=== PATIENT | male | born 1955 | race Caucasian/White ===

== ENCOUNTER 2016-06-25 19:34 | Emergency (ER) | payer OTHER ==
[~2016-06-25] VITALS: Ht 180.3 cm; Wt 149.7 kg
[2016-06-25 21:49] LABS: Basophils # (auto) 0.1 uL; Basophils % (auto) 0.7 % (0.0-2.0); DEFINITIVE VIEW TRANSMISSION; Eosinophils # (auto) 1.1 uL; Eosinophils % (auto) 8.1 % (0.0-7.0); Hematocrit 43.3 % (41.0-53.0); Hemoglobin 14.2 g/dL (13.5-17.5); Lymphocytes % (auto) 14.5 % (10.0-50.0); Mean Corpuscular Hemoglobin 30.5 pg (28.0-32.0); Mean Corpuscular Hgb Conc. 32.7 g/dL (32.0-36.0); Mean Corpuscular Volume 93.2 fL (80.0-100.0); Mean Platelet Volume 8.8 fL (7.4-10.4); Monocytes # (auto) 0.9 uL; Monocytes % (auto) 6.1 % (0.0-12.0); Neutrophils # (auto) 9.9 uL; Neutrophils % (auto) 70.6 % (37.0-80.0); Platelet Count (auto) 199 10^3/uL (140-450); Red Cell Distribution Width 12.8 % (11.6-16.0); White Blood Cell 14.1 10^3/uL (4.4-10.8)
[2016-06-25 22:04] VITALS: BP 119/70
[2016-06-25 22:13] LABS: Albumin 3.4 g/dL (3.4-5.0); BUN/Creatinine Ratio 13.5; Calcium 8.9 mg/dL (8.5-10.1); Potassium 3.8 mmol/L (3.5-5.1)
[2016-06-25 22:16] LABS: Bilirubin, Total 0.1 mg/dL (0.2-1.0); Total Protein 7.7 g/dL (6.4-8.2)
[2016-06-25 22:37] LABS: Urine Bilirubin Negative (Negative); Urine Color Yellow (Yellow); Urine Glucose Normal (Normal); Urine Hyaline Cast FEW /lpf (0 - 2); Urine Ketone Negative (Negative); Urine RBC 159 /hpf (0 - 3); Urine Urobilinogen Normal (Negative); Urine pH 5.5 (5.0-8.0)
[2016-06-25 22:39] LABS: Urine Blood 2+ /uL (Negative); Urine Nitrite POSITIVE (Negative)
[2016-06-26] MEDS ORDERED: cefTRIAXone 1GM/50ML D5W 50 ML IV ONE ×2 (01:00)
== END 2016-06-26 02:23 | disposition home or self-care (01) ==
LOC: EDBD 19:34 → ER 19:34
DX: N39.0 Urinary tract infection, site not specified (principal); R33.9 Retention of urine, unspecified; I10 Essential (primary) hypertension; Z98.890 Other specified postprocedural states; Z85.46 Personal history of malignant neoplasm of prostate
CPT/HCPCS: 36415; 80053; 81001; 85025; 96365; 96366; 99285; J0696

== ENCOUNTER 2018-06-09 21:58 | Emergency (ER) | payer OTHER ==
[~2018-06-09] VITALS: Ht 167.6 cm; Wt 145.1 kg
[2018-06-09 22:43] VITALS: BP 146/74
== END 2018-06-10 02:49 | disposition left against medical advice (07) ==
LOC: ER 22:02
DX: M54.2 Cervicalgia (principal); M54.5 Low back pain; M25.551 Pain in right hip; M25.512 Pain in left shoulder; M25.511 Pain in right shoulder; I10 Essential (primary) hypertension; V49.49XA Driver injured in collision with other motor vehicles in traffic accident, initial encounter; Y93.I9 Activity, other involving external motion; Y92.488 Other paved roadways as the place of occurrence of the external cause; Y99.8 Other external cause status
CPT/HCPCS: 70450; 72125; 72128; 72131; 73620; 73700; 82962

== ENCOUNTER 2020-02-17 02:06 | Emergency (ER) | payer MEDICARE, MEDICAID ==
[~2020-02-17] VITALS: Ht 170.2 cm; Wt 136.1 kg
[2020-02-17 02:28] VITALS: BP 144/47
== END 2020-02-17 05:41 | disposition left against medical advice (07) ==
LOC: EDBD 02:06 → ER 02:10
DX: M79.89 Other specified soft tissue disorders (principal); Z53.21 Procedure and treatment not carried out due to patient leaving prior to being seen by health care provider

== ENCOUNTER 2020-03-05 17:28 | Emergency (ER) | payer MEDICARE, MEDICAID ==
[~2020-03-05] VITALS: Ht 167.6 cm; Wt 149.7 kg
[2020-03-05 17:41] VITALS: BP 143/73
== END 2020-03-06 00:56 | disposition left against medical advice (07) ==
LOC: EDBD 17:28 → ER 17:28
DX: R53.1 Weakness (principal); Z53.21 Procedure and treatment not carried out due to patient leaving prior to being seen by health care provider

== ENCOUNTER 2020-06-16 06:21 | Inpatient (IN) | payer MEDICARE, MEDICAID ==
[~2020-06-16] VITALS: Ht 167.6 cm; Wt 142.0 kg
[2020-06-16] MEDS ORDERED: MORPHINE SULFATE 4 MG/ML SYR/VIAL IV ONE ×2 (07:45→18:45)
[2020-06-16] MEDS ORDERED: ONDANSETRON HCL 4 MG/2 ML VIAL IV ONE ×2 (07:45→18:45)
[2020-06-16 08:03] LABS: Basophils # (auto) 0 10 ^3/uL (0-0.2); Basophils % (auto) 0.3 % (0.0-2.0); Eosinophils # (auto) 0.2 10 ^3/uL (0-0.8); Eosinophils % (auto) 2.4 % (0.0-7.0); Hematocrit 36.2 % (41.0-53.0); Hemoglobin 12.4 g/dL (13.5-17.5); Lymphocytes # (auto) 1.4 10 ^3/uL (0.4-5.4); Lymphocytes % (auto) 20.8 % (10.0-50.0); Mean Corpuscular Hemoglobin 30.6 pg (28.0-32.0); Mean Corpuscular Hgb Conc. 34.2 g/dL (32.0-36.0); Mean Corpuscular Volume 89.5 fL (80.0-100.0); Monocytes # (auto) 0.7 10 ^3/uL (0-1.3); Monocytes % (auto) 10.6 % (0.0-12.0); Neutrophils # (auto) 4.4 10 ^3/uL (1.6-8.6); Neutrophils % (auto) 65.9 % (37.0-80.0); Red Blood Cells 4.04 10^6/uL (4.5-5.90); Red Cell Distribution Width 15.1 % (11.8-14.3); White Blood Cell 6.7 10^3/uL (4.4-10.8)
[2020-06-16 08:22] LABS: INR 1.07 (0.9-1.15)
[2020-06-16 08:37] LABS: Chloride 103 mmol/L (98-107); Potassium 4.1 mmol/L (3.5-5.1); Sodium 135 mmol/L (136-145)
[2020-06-16 08:47] LABS: Alanine Aminotransferase 30 U/L (16-61); Albumin 3.5 g/dL (3.4-5.0); Anion Gap 6 (5-15); Aspartate Aminotransferase 24 U/L (15-37); BUN/Creatinine Ratio 24.6; Bilirubin, Total 0.4 mg/dL (0.2-1.0); Blood Urea Nitrogen 28 mg/dL (7-18); Calcium 8.5 mg/dL (8.5-10.1); Carbon Dioxide 26 mmol/L (21-32); GFR African American 83 mL/min; GFR Non-African American 68 mL/min; Glucose 138 mg/dL (74-106); Total Protein 8.3 g/dL (6.4-8.2)
[2020-06-16 09:20] LABS: Alkaline Phosphatase 116 U/L (45-117)
[2020-06-16] MEDS ORDERED: LORazepam 2MG/ML-1ML VIAL ONE (10:24)
[2020-06-16] MEDS ORDERED: LORazepam 2MG/ML-1ML VIAL IV ONE (10:45)
[2020-06-16 12:45] LABS: Urine Bacteria FEW /hpf (None Seen); Urine Blood TRACE /uL (Negative); Urine Hyaline Cast FEW /lpf (0 - 2); Urine Mucus FEW (None Seen); Urine Specific Gravity 1.026 (1.001-1.035); Urine WBC 23 /hpf (0 - 3)
[2020-06-16 12:46] LABS: Alcohol, Urine < 3.0 mg/dL (0-10); Cannabinoid Screen, Urine NEGATIVE (NEGATIVE)
[2020-06-16 12:55] LABS: Amphetamine Screen, Urine NEGATIVE (NEGATIVE); Barbiturate Scree,Urine NEGATIVE (NEGATIVE); Benzodiazephine Screen, Urine NEGATIVE (NEGATIVE); Cocaine Screen, Urine NEGATIVE (NEGATIVE); Opiate Scree,Urine POSITIVE (NEGATIVE); Phencyclidine Screen, Urine NEGATIVE (NEGATIVE)
[2020-06-16] MEDS ORDERED: cefTRIAXone 1GM/50ML D5W 50 ML IV ONE (16:30)
[2020-06-16] MEDS ORDERED: MORPHINE SULFATE 4 MG/ML SYR/VIAL ONE (18:29)
[2020-06-16] MEDS ORDERED: ONDANSETRON HCL 4 MG/2 ML VIAL ONE (18:29)
[2020-06-16] MEDS ORDERED: DEXTROSE (50%) 50ML SYRG IV PRN (19:15)
[2020-06-16] MEDS ORDERED: NITROGLYCERIN 0.4 MG SL TAB SL PRN (19:15)
[2020-06-16] MEDS ORDERED: MORPHINE SULFATE INJECTION 2 MG/ML SYRG IV PRN (19:15)
[2020-06-16] MEDS ORDERED: ACETAMINOPHEN 500 MG TAB PO PRN (19:15)
[2020-06-16] MEDS: InsuLIN REG 1unit/0.01ml Soln (100units/ml) SC SCH (20:51)
[2020-06-16] MEDS: ACCU-CHEK COMFORT CURVE STRIP VI SCH (21:33)
[2020-06-16 22:15] VITALS: BP 148/84
[2020-06-16 22:33] VITALS: BP 148/84
[2020-06-16] MEDS: DOCUSATE SOD 100 MG CAP PO SCH (22:41)
[2020-06-16] MEDS: CLINDAMYCIN 300MG IV 50 ML IV SCH (22:41)
[2020-06-16] MEDS: MORPHINE SULFATE INJECTION 2 MG/ML SYRG IV PRN (22:55)
[2020-06-17] MEDS ORDERED: GABA300C10 PO (00:48)
[2020-06-17] MEDS ORDERED: FURO1TAB33 GT (00:48)
[2020-06-17] MEDS ORDERED: METF-370 PO (00:48)
[2020-06-17] MEDS: HYDROcodone-ACET 5/325MG TAB PO PRN (02:28)
[2020-06-17] MEDS: MORPHINE SULFATE INJECTION 2 MG/ML SYRG IV PRN ×4 (03:23→18:00)
[2020-06-17 05:00] VITALS: BP 151/81
[2020-06-17] MEDS: CLINDAMYCIN 300MG IV 50 ML IV SCH ×3 (06:04→23:00)
[2020-06-17 06:22] LABS: Basophils # (auto) 0.1 10 ^3/uL (0-0.2); Basophils % (auto) 1.1 % (0.0-2.0); Eosinophils # (auto) 0.2 10 ^3/uL (0-0.8); Eosinophils % (auto) 4.7 % (0.0-7.0); Hemoglobin 10.8 g/dL (13.5-17.5); Lymphocytes # (auto) 1.1 10 ^3/uL (0.4-5.4); Lymphocytes % (auto) 21.8 % (10.0-50.0); Mean Corpuscular Hemoglobin 30.2 pg (28.0-32.0); Mean Corpuscular Hgb Conc. 33.6 g/dL (32.0-36.0); Mean Corpuscular Volume 89.7 fL (80.0-100.0); Monocytes # (auto) 0.6 10 ^3/uL (0-1.3); Monocytes % (auto) 12.3 % (0.0-12.0); Neutrophils % (auto) 60.1 % (37.0-80.0); Red Blood Cells 3.57 10^6/uL (4.5-5.90); Red Cell Distribution Width 14.7 % (11.8-14.3); White Blood Cell 5.1 10^3/uL (4.4-10.8)
[2020-06-17] MEDS: InsuLIN REG 1unit/0.01ml Soln (100units/ml) SC SCH (06:26)
[2020-06-17] MEDS: ACCU-CHEK COMFORT CURVE STRIP VI SCH (06:27)
[2020-06-17 06:34] LABS: BUN/Creatinine Ratio 25.3; Calcium 8.1 mg/dL (8.5-10.1)
[2020-06-17 08:00] VITALS: BP 133/71
[2020-06-17] MEDS: DOCUSATE SOD 100 MG CAP PO SCH ×2 (08:43→22:00)
[2020-06-17] MEDS: ENOXAPARIN SOD 40 MG/0.4 ML SYRINGE SC SCH ×2 (08:44→08:51)
[2020-06-17] MEDS: FAMOTIDINE 20 MG TAB PO SCH (08:44)
[2020-06-17] MEDS: cefTRIAXone 1GM/50ML D5W 50 ML IV SCH (08:44)
[2020-06-17 16:00] VITALS: BP 164/95
[2020-06-17] MEDS: TAMSULOSIN HYDROCHLORIDE 0.4 MG CAP PO SCH (18:27)
[2020-06-17 22:00] VITALS: BP 150/79
[2020-06-18] VITALS: BP 150/79
[2020-06-18] MEDS: MORPHINE SULFATE INJECTION 2 MG/ML SYRG IV PRN ×5 (00:03→23:00)
[2020-06-18] MEDS: ONDANSETRON HCL 4 MG/2 ML VIAL IV PRN ×2 (00:03→13:29)
[2020-06-18] MEDS: TEMAZEPAM 15 MG CAP PO PRN (00:31)
[2020-06-18] MEDS: HYDROcodone-ACET 5/325MG TAB PO PRN ×2 (00:31→06:06)
[2020-06-18 05:00] VITALS: BP 154/81
[2020-06-18] MEDS: CLINDAMYCIN 300MG IV 50 ML IV SCH ×3 (06:06→22:00)
[2020-06-18 08:00] VITALS: BP 156/95
[2020-06-18] MEDS: cefTRIAXone 1GM/50ML D5W 50 ML IV SCH (09:00)
[2020-06-18] MEDS: FAMOTIDINE 20 MG TAB PO SCH (10:00)
[2020-06-18] MEDS: DOCUSATE SOD 100 MG CAP PO SCH ×2 (10:00→22:00)
[2020-06-18] MEDS: ENOXAPARIN SOD 40 MG/0.4 ML SYRINGE SC SCH (10:00)
[2020-06-18] MEDS ORDERED: LACTULOSE 20Gm/30ML SOLN PO ONE (10:30)
[2020-06-18 16:00] VITALS: BP 158/83
[2020-06-18] MEDS: TAMSULOSIN HYDROCHLORIDE 0.4 MG CAP PO SCH (18:00)
[2020-06-18 22:00] VITALS: BP 148/69
[2020-06-18 22:06] VITALS: BP_SYST 148; BP_SYST 158; BP_DIAS 69; BP_DIAS 83
[2020-06-19] VITALS: BP 148/69
[2020-06-19 00:02] VITALS: BP 158/83
[2020-06-19 01:03] VITALS: BP 148/69
[2020-06-19] MEDS: ONDANSETRON HCL 4 MG/2 ML VIAL IV PRN (01:30)
[2020-06-19] MEDS: HYDROcodone-ACET 5/325MG TAB PO PRN ×2 (02:55→21:08)
[2020-06-19 05:00] VITALS: BP 133/68
[2020-06-19] MEDS: CLINDAMYCIN 300MG IV 50 ML IV SCH ×3 (06:00→22:00)
[2020-06-19 08:00] VITALS: BP 146/76
[2020-06-19] MEDS: cefTRIAXone 1GM/50ML D5W 50 ML IV SCH (09:42)
[2020-06-19] MEDS: DOCUSATE SOD 100 MG CAP PO SCH ×2 (09:44→22:22)
[2020-06-19] MEDS: FAMOTIDINE 20 MG TAB PO SCH (09:45)
[2020-06-19] MEDS: ENOXAPARIN SOD 40 MG/0.4 ML SYRINGE SC SCH (09:45)
[2020-06-19 16:00] VITALS: BP 161/72
[2020-06-19] MEDS: TAMSULOSIN HYDROCHLORIDE 0.4 MG CAP PO SCH ×2 (17:16→17:45)
[2020-06-20] VITALS: BP 155/74
[2020-06-20] MEDS: CLINDAMYCIN 300MG IV 50 ML IV SCH (06:00)
[2020-06-20 08:00] VITALS: BP 157/80
[2020-06-20] MEDS ORDERED: levoFLOXacin 500 MG TAB PO SCH (10:00)
[2020-06-20] MEDS: ENOXAPARIN SOD 40 MG/0.4 ML SYRINGE SC SCH (10:00)
[2020-06-20] MEDS: HYDROcodone-ACET 5/325MG TAB PO PRN ×2 (10:31→22:48)
[2020-06-20] MEDS: FAMOTIDINE 20 MG TAB PO SCH (10:31)
[2020-06-20] MEDS: DOCUSATE SOD 100 MG CAP PO SCH ×2 (10:31→22:09)
[2020-06-20] MEDS: CLINDAMYCIN HCL 150 MG CAP PO SCH ×2 (14:18→22:08)
[2020-06-20 16:00] VITALS: BP 159/80
[2020-06-20] MEDS ORDERED: cloNIDine HCL 0.1 MG TAB PO PRN (16:15)
[2020-06-20] MEDS ORDERED: cloNIDine HCL 0.1 MG TAB PO ONE (16:15)
[2020-06-20] MEDS ORDERED: FUROSEMIDE 40 MG TAB PO ONE (16:15)
[2020-06-20] MEDS: TAMSULOSIN HYDROCHLORIDE 0.4 MG CAP PO SCH (18:00)
[2020-06-20 22:00] VITALS: BP 151/80
[2020-06-20] MEDS: TEMAZEPAM 15 MG CAP PO PRN (22:49)
[2020-06-21] VITALS: BP 151/80
[2020-06-21 05:05] VITALS: BP 135/70
[2020-06-21] MEDS: CLINDAMYCIN HCL 150 MG CAP PO SCH (06:08)
[2020-06-21 08:00] VITALS: BP 152/92
[2020-06-21] MEDS: FAMOTIDINE 20 MG TAB PO SCH (08:22)
[2020-06-21] MEDS: DOCUSATE SOD 100 MG CAP PO SCH (08:24)
[2020-06-21] MEDS: ENOXAPARIN SOD 40 MG/0.4 ML SYRINGE SC SCH (08:25)
[2020-06-21] MEDS ORDERED: FUROSEMIDE 40 MG TAB PO SCH (10:00)
== END 2020-06-21 10:05 | disposition left against medical advice (07) | DRG 920 ==
LOC: EDBD 06:21 → ER 06:21 → TELE 18:12 → TELE-CENTR 22:15
PROVIDERS: ADMIT Nurse Practitioner Acute Care; ATTEND Family Medicine
DX: T86.822 Skin graft (allograft) (autograft) infection (principal); L03.116 Cellulitis of left lower limb; N30.00 Acute cystitis without hematuria; Z68.43 Body mass index [BMI] 50.0-59.9, adult; L03.115 Cellulitis of right lower limb; F31.9 Bipolar disorder, unspecified; I10 Essential (primary) hypertension; E66.9 Obesity, unspecified; E78.5 Hyperlipidemia, unspecified; E11.51 Type 2 diabetes mellitus with diabetic peripheral angiopathy without gangrene; E11.42 Type 2 diabetes mellitus with diabetic polyneuropathy; Z53.29 Procedure and treatment not carried out because of patient's decision for other reasons; Z96.649 Presence of unspecified artificial hip joint; Z20.822 Contact with and (suspected) exposure to COVID-19; Z79.84 Long term (current) use of oral hypoglycemic drugs; Z85.51 Personal history of malignant neoplasm of bladder; Z91.14 Patient's other noncompliance with medication regimen; Z59.0 Homelessness
CPT/HCPCS: 36415; 71045; 80048; 80053; 80307; 81001; 82962; 83036; 83880; 84443; 84484; 85025; 85379; 85610; 85730; 87040; 87081; 87086; 87426; 93926; 93970; 96365; 96375; 96376; G0378; J0696; J1815; J2405; J3490

== ENCOUNTER 2020-08-18 13:19 | Emergency (ER) | payer OTHER, MEDICAID ==
[~2020-08-18] VITALS: Ht 167.6 cm; Wt 108.9 kg
[~2020-08-18 13:19] MED LIST: FURO1TAB33 GT; GABA300C10 PO; METF-370 PO
[2020-08-18 15:47] LABS: Basophils # (auto) 0 10 ^3/uL (0-0.2); Basophils % (auto) 0.6 % (0.0-2.0); Eosinophils # (auto) 0.1 10 ^3/uL (0-0.8); Eosinophils % (auto) 0.8 % (0.0-7.0); Hemoglobin 15.1 g/dL (13.5-17.5); Lymphocytes # (auto) 1.4 10 ^3/uL (0.4-5.4); Lymphocytes % (auto) 19.7 % (10.0-50.0); Mean Corpuscular Hemoglobin 29.9 pg (28.0-32.0); Mean Corpuscular Volume 85.4 fL (80.0-100.0); Monocytes # (auto) 0.8 10 ^3/uL (0-1.3); Neutrophils # (auto) 4.9 10 ^3/uL (1.6-8.6); Neutrophils % (auto) 67.9 % (37.0-80.0); Nucleated Red Blood Cells % 0.3 %; Platelet Count (auto) 190 10^3/uL (140-450); Red Blood Cells 5.04 10^6/uL (4.5-5.90); Red Cell Distribution Width 15.7 % (11.8-14.3); White Blood Cell 7.2 10^3/uL (4.4-10.8)
[2020-08-18 15:58] LABS: Albumin 3.9 g/dL (3.4-5.0); Calcium 9.2 mg/dL (8.5-10.1); Magnesium 2.2 mg/dL (1.6-2.6); Potassium 3.6 mmol/L (3.5-5.1)
[2020-08-18 16:03] LABS: BUN/Creatinine Ratio 23.4; Bilirubin, Total 0.6 mg/dL (0.2-1.0); Total Protein 8.7 g/dL (6.4-8.2)
[2020-08-18 16:46] LABS: INR 1.13 (0.9-1.15); Partial Thromboplastin Time 30.4 sec (23.0-31.2)
[2020-08-18] MEDS ORDERED: cefTRIAXone 1GM/50ML D5W 50 ML IV ONE (17:15)
[2020-08-18 19:59] LABS: Urine Bacteria NONE SEEN /hpf (None Seen); Urine Blood Negative /uL (Negative); Urine Specific Gravity 1.007 (1.001-1.035); Urine WBC 1 /hpf (0 - 3)
[2020-08-19 05:46] VITALS: BP 118/59
== END 2020-08-19 08:54 | disposition left against medical advice (07) ==
LOC: ER 13:19 → EDBD 13:19 → ER 08-19 08:54
DX: L03.114 Cellulitis of left upper limb (principal); R60.0 Localized edema; E11.9 Type 2 diabetes mellitus without complications; I10 Essential (primary) hypertension; E78.5 Hyperlipidemia, unspecified; Z79.899 Other long term (current) drug therapy; Z20.822 Contact with and (suspected) exposure to COVID-19
CPT/HCPCS: 36415; 71045; 73130; 80053; 81001; 82728; 83605; 83735; 83880; 84484; 85025; 85610; 85652; 85730; 86141; 87040; 87426; 93005; 93970; 96365; 99285; J0696

== ENCOUNTER 2020-08-19 15:46 | Emergency (ER) | payer OTHER, MEDICAID | END 2020-08-19 18:14 | disposition left against medical advice (07) | LOC: EDBD 15:46 → ER 15:46 | DX: Z48.01 Encounter for change or removal of surgical wound dressing (principal); Z53.21 Procedure and treatment not carried out due to patient leaving prior to being seen by health care provider ==

== ENCOUNTER 2022-11-18 23:55 | Inpatient (IN) | payer MEDICARE, MEDICAID ==
[~2022-11-18] VITALS: Ht 172.7 cm; Wt 141.3 kg
[~2022-11-18 23:55] MED LIST changes: +GABA-1250 PO; -GABA300C10 PO
[2022-11-19 00:45] LABS: Basophils # (auto) 0.1 10 ^3/uL (0-0.2); Eosinophils # (auto) 0.1 10 ^3/uL (0-0.8); Eosinophils % (auto) 2.2 % (0.0-7.0); Hematocrit 40.7 % (41.0-53.0); Hemoglobin 14.1 g/dL (13.5-17.5); Lymphocytes # (auto) 1.7 10 ^3/uL (0.4-5.4); Lymphocytes % (auto) 24.8 % (10.0-50.0); Mean Corpuscular Hemoglobin 32.8 pg (28.0-32.0); Mean Corpuscular Hgb Conc. 34.7 g/dL (32.0-36.0); Mean Corpuscular Volume 94.7 fL (80.0-100.0); Monocytes # (auto) 0.6 10 ^3/uL (0-1.3); Monocytes % (auto) 9.5 % (0.0-12.0); Neutrophils # (auto) 4.2 10 ^3/uL (1.6-8.6); Neutrophils % (auto) 62.5 % (37.0-80.0); Nucleated Red Blood Cells % 0.2 %; Red Cell Distribution Width 13.1 % (11.8-14.3); White Blood Cell 6.7 10^3/uL (4.4-10.8)
[2022-11-19 01:11] LABS: Calcium 8.3 mg/dL (8.5-10.1); Potassium 3.9 mmol/L (3.5-5.1)
[2022-11-19 01:13] LABS: BUN/Creatinine Ratio 21.4 (10.0-20.0)
[2022-11-19 01:20] LABS: INR 1.04 (0.9-1.15); Partial Thromboplastin Time 29.3 SEC (24.5-34.5)
[2022-11-19 01:29] LABS: Albumin 3.4 g/dL (3.4-5.0); Bilirubin, Total 0.3 mg/dL (0.2-1.0); Total Protein 7.3 g/dL (6.4-8.2)
[2022-11-19] MEDS ORDERED: ASPirin 325 MG TAB PO ONE (05:00)
[2022-11-19] MEDS ORDERED: LACTATED RINGER'S 1,000 ML IV ONE (05:00)
[2022-11-19] MEDS ORDERED: ACETAMINOPHEN 325 MG TAB PO PRN (05:30)
[2022-11-19] MEDS ORDERED: DEXTROSE (50%) 50ML SYRG IV PRN (05:30)
[2022-11-19] MEDS ORDERED: MORPHINE SULFATE INJ 2 MG/ml SYRG IV PRN (07:00)
[2022-11-19] MEDS ORDERED: NITROGLYCERIN 0.4 MG SL TAB SL PRN (07:00)
[2022-11-19] MEDS: ACCU-CHEK COMFORT CURVE STRIP VI SCH ×3 (07:22→17:09)
[2022-11-19] MEDS: InsuLIN REG 1unit/0.01ml Soln (100units/ml) SC SCH ×3 (07:24→17:16)
[2022-11-19] MEDS: SODIUM CHLORIDE 0.9% 1,000 ML IV SCH (07:28)
[2022-11-19 08:23] LABS: Urine Bacteria NONE SEEN /hpf (None Seen); Urine Blood 2+ /uL (Negative); Urine Hyaline Cast FEW /lpf (0 - 2); Urine Mucus FEW (None Seen); Urine Specific Gravity 1.025 (1.001-1.035); Urine WBC 1 /hpf (0 - 3)
[2022-11-19 09:15] LABS: Basophils # (auto) 0 10 ^3/uL (0-0.2); Eosinophils # (auto) 0.2 10 ^3/uL (0-0.8); Eosinophils % (auto) 3.3 % (0.0-7.0); Hematocrit 40.8 % (41.0-53.0); Lymphocytes # (auto) 1.2 10 ^3/uL (0.4-5.4); Lymphocytes % (auto) 23.5 % (10.0-50.0); Mean Corpuscular Hemoglobin 32.6 pg (28.0-32.0); Mean Corpuscular Hgb Conc. 34.4 g/dL (32.0-36.0); Mean Corpuscular Volume 94.6 fL (80.0-100.0); Monocytes # (auto) 0.5 10 ^3/uL (0-1.3); Monocytes % (auto) 9.3 % (0.0-12.0); Neutrophils # (auto) 3.1 10 ^3/uL (1.6-8.6); Neutrophils % (auto) 62.9 % (37.0-80.0); Nucleated Red Blood Cells % 0.2 %; Red Blood Cells 4.31 10^6/uL (4.5-5.90); Red Cell Distribution Width 13.1 % (11.8-14.3)
[2022-11-19] MEDS: ASPirin 81 mg TAB PO SCH (10:02)
[2022-11-19 10:10] LABS: Albumin 3.3 g/dL (3.4-5.0); Calcium 8.4 mg/dL (8.5-10.1)
[2022-11-19 10:15] LABS: BUN/Creatinine Ratio 19.2 (10.0-20.0); Bilirubin, Total 0.4 mg/dL (0.2-1.0); Total Protein 7.6 g/dL (6.4-8.2)
[2022-11-19] MEDS ORDERED: InsuLIN REG 1unit/0.01ml Soln (100units/ml) SC SCH (22:00)
[2022-11-20] MEDS: ATORVASTATIN 20 MG TAB PO SCH ×2 (00:22→21:44)
[2022-11-20] MEDS: ACCU-CHEK COMFORT CURVE STRIP VI SCH ×5 (00:28→18:06)
[2022-11-20] MEDS: SODIUM CHLORIDE 0.9% 1,000 ML IV SCH ×2 (00:39→01:39)
[2022-11-20] MEDS: InsuLIN REG 1unit/0.01ml Soln (100units/ml) SC SCH ×4 (06:36→18:10)
[2022-11-20 06:49] LABS: Basophils # (auto) 0.1 10 ^3/uL (0-0.2); Basophils % (auto) 1.1 % (0.0-2.0); Eosinophils # (auto) 0.2 10 ^3/uL (0-0.8); Eosinophils % (auto) 3.1 % (0.0-7.0); Hematocrit 38.6 % (41.0-53.0); Hemoglobin 13.5 g/dL (13.5-17.5); Lymphocytes # (auto) 1.4 10 ^3/uL (0.4-5.4); Lymphocytes % (auto) 22.7 % (10.0-50.0); Mean Corpuscular Hemoglobin 33.3 pg (28.0-32.0); Mean Corpuscular Volume 95.1 fL (80.0-100.0); Monocytes # (auto) 0.6 10 ^3/uL (0-1.3); Neutrophils % (auto) 63.1 % (37.0-80.0); Nucleated Red Blood Cells % 0.1 %; Red Blood Cells 4.06 10^6/uL (4.5-5.90); Red Cell Distribution Width 13.3 % (11.8-14.3); White Blood Cell 6.3 10^3/uL (4.4-10.8)
[2022-11-20 07:35] LABS: Albumin 3.2 g/dL (3.4-5.0); Calcium 8.3 mg/dL (8.5-10.1); Potassium 4.1 mmol/L (3.5-5.1)
[2022-11-20 07:38] LABS: BUN/Creatinine Ratio 20.2 (10.0-20.0); Bilirubin, Total 0.5 mg/dL (0.2-1.0); Total Protein 6.6 g/dL (6.4-8.2)
[2022-11-20] MEDS: ASPirin 81 mg TAB PO SCH (10:16)
[2022-11-20] MEDS ORDERED: FUROSEMIDE 40 MG/4 ML VIAL IV ONE (14:00)
[2022-11-20] MEDS ORDERED: NIFE1TAB30 PO (14:26)
[2022-11-20] MEDS ORDERED: LOSA50TA46 PO (14:26)
[2022-11-20 15:05] LABS: Cholesterol 156 mg/dL (< 200)
[2022-11-20 15:08] LABS: HDL Cholesterol 37 mg/dL (40-59); LDL Cholesterol 98 mg/dL (< 100); Triglycerides 121 mg/dL (< 150)
[2022-11-20] MEDS ORDERED: DEXTROSE (50%) 50ML SYRG IV PRN (17:45)
[2022-11-20] MEDS: DOCUSATE SOD 100 MG CAP PO PRN (21:44)
[2022-11-20] MEDS: ONDANSETRON HCL 4 MG/2 ML VIAL IV PRN (21:44)
[2022-11-20] MEDS: MORPHINE SULFATE INJ 2 MG/ml SYRG IV PRN (21:45)
[2022-11-21] MEDS: HYDROcodone-ACET 5/325MG TAB PO PRN ×2 (00:02→13:36)
[2022-11-21] MEDS: ACCU-CHEK COMFORT CURVE STRIP VI SCH ×3 (00:02→12:12)
[2022-11-21] MEDS: InsuLIN REG 1unit/0.01ml Soln (100units/ml) SC SCH ×4 (00:15→22:20)
[2022-11-21 05:53] VITALS: BP 171/88
[2022-11-21] MEDS: hydrALAZINE HCL 20 MG/ML VL IV PRN ×2 (05:54→12:35)
[2022-11-21] MEDS ORDERED: ATOR40TA52 PO (06:56)
[2022-11-21] MEDS ORDERED: ADENOSINE IV STA (10:24)
[2022-11-21] MEDS ORDERED: GIVE UN DILUTED IV STA (10:24)
[2022-11-21 10:29] VITALS: BP 167/55
[2022-11-21] MEDS: ASPirin 81 mg TAB PO SCH (12:10)
[2022-11-21] MEDS: FUROSEMIDE 40 MG/4 ML VIAL IV SCH (12:10)
[2022-11-21] MEDS: POTASSIUM CHL 20 Meq TABLET PO SCH (12:11)
[2022-11-21 13:00] VITALS: BP 158/60
[2022-11-21 13:46] LABS: Calcium 9.3 mg/dL (8.5-10.1); Potassium 3.8 mmol/L (3.5-5.1)
[2022-11-21 13:53] LABS: BUN/Creatinine Ratio 20.2 (10.0-20.0)
[2022-11-21] MEDS: MORPHINE SULFATE INJ 2 MG/ml SYRG IV PRN ×2 (14:43→22:25)
[2022-11-21] MEDS ORDERED: LISINOPRIL 10 MG TAB PO ONE (15:30)
[2022-11-21] MEDS ORDERED: CEPHALEXIN 250 MG CAP PO ONE (15:45)
[2022-11-21 17:00] VITALS: BP 149/82
[2022-11-21 20:00] VITALS: BP 166/80
[2022-11-21 22:00] VITALS: BP 166/80
[2022-11-21] MEDS: DOCUSATE SOD 100 MG CAP PO PRN (22:22)
[2022-11-21] MEDS: ATORVASTATIN 20 MG TAB PO SCH (22:22)
[2022-11-21] MEDS: CEPHALEXIN 250 MG CAP PO SCH (22:23)
[2022-11-21] MEDS: ONDANSETRON HCL 4 MG/2 ML VIAL IV PRN (22:23)
[2022-11-22] MEDS: ACCU-CHEK COMFORT CURVE STRIP VI SCH ×5 (00:26→17:11)
[2022-11-22] MEDS ORDERED: TEMAZEPAM 15 MG CAP PO ONE (01:00)
[2022-11-22] MEDS: InsuLIN REG 1unit/0.01ml Soln (100units/ml) SC SCH ×4 (04:49→18:19)
[2022-11-22 05:00] VITALS: BP 142/61
[2022-11-22] MEDS: SPIRONOLACTONE 25 MG TAB PO SCH ×3 (06:00→17:10)
[2022-11-22] MEDS: CEPHALEXIN 250 MG CAP PO SCH ×3 (06:40→21:30)
[2022-11-22 09:00] VITALS: BP 132/48
[2022-11-22] MEDS: ASPirin 81 mg TAB PO SCH (09:42)
[2022-11-22] MEDS: POTASSIUM CHL 20 Meq TABLET PO SCH (09:42)
[2022-11-22] MEDS: FUROSEMIDE 40 MG/4 ML VIAL IV SCH (09:43)
[2022-11-22] MEDS: LISINOPRIL 10 MG TAB PO SCH (09:43)
[2022-11-22 10:43] LABS: BUN/Creatinine Ratio 20.2 (10.0-20.0); Calcium 9.1 mg/dL (8.5-10.1); Potassium 3.9 mmol/L (3.5-5.1)
[2022-11-22] MEDS ORDERED: FURO1TAB31 PO (11:20)
[2022-11-22] MEDS ORDERED: LISI10TA34 PO (11:20)
[2022-11-22] MEDS ORDERED: CEPH250C PO (11:20)
[2022-11-22] MEDS ORDERED: POTA-211 PO (11:20)
[2022-11-22] MEDS ORDERED: DOCU-265 PO (11:20)
[2022-11-22] MEDS ORDERED: SPIR25TA PO (11:20)
[2022-11-22] MEDS ORDERED: ATOR20TA50 PO (11:20)
[2022-11-22] MEDS ORDERED: ASPI-325 PO (11:20)
[2022-11-22] MEDS ORDERED: METF-371 PO (11:20)
[2022-11-22 12:55] VITALS: BP 132/98
[2022-11-22 13:00] VITALS: BP 136/49
[2022-11-22 17:00] VITALS: BP 147/56
[2022-11-22] MEDS: ATORVASTATIN 20 MG TAB PO SCH (21:29)
[2022-11-23] VITALS (7 sets, daily range): BP systolic 117–159; BP diastolic 63–76
[2022-11-23] MEDS: ACCU-CHEK COMFORT CURVE STRIP VI SCH ×5 (00:06→23:20)
[2022-11-23] MEDS: InsuLIN REG 1unit/0.01ml Soln (100units/ml) SC SCH ×5 (00:09→23:22)
[2022-11-23] MEDS: DOCUSATE SOD 100 MG CAP PO PRN (03:38)
[2022-11-23] MEDS: SPIRONOLACTONE 25 MG TAB PO SCH ×2 (05:46→17:39)
[2022-11-23] MEDS: CEPHALEXIN 250 MG CAP PO SCH ×3 (05:46→21:23)
[2022-11-23] MEDS: POTASSIUM CHL 20 Meq TABLET PO SCH (09:58)
[2022-11-23] MEDS: ASPirin 81 mg TAB PO SCH (09:58)
[2022-11-23] MEDS: FUROSEMIDE 40 MG/4 ML VIAL IV SCH (10:13)
[2022-11-23] MEDS: LISINOPRIL 10 MG TAB PO SCH (10:25)
[2022-11-23] MEDS: ATORVASTATIN 20 MG TAB PO SCH (21:23)
[2022-11-23] MEDS: hydrALAZINE HCL 20 MG/ML VL IV PRN (22:01)
[2022-11-24 04:53] VITALS: BP 143/66
[2022-11-24] MEDS: CEPHALEXIN 250 MG CAP PO SCH ×3 (05:15→21:54)
[2022-11-24] MEDS: SPIRONOLACTONE 25 MG TAB PO SCH ×2 (05:15→19:05)
[2022-11-24] MEDS: ACCU-CHEK COMFORT CURVE STRIP VI SCH ×4 (05:15→23:40)
[2022-11-24] MEDS: InsuLIN REG 1unit/0.01ml Soln (100units/ml) SC SCH ×4 (05:23→23:46)
[2022-11-24 08:28] VITALS: BP 145/59
[2022-11-24] MEDS: FUROSEMIDE 40 MG/4 ML VIAL IV SCH (09:55)
[2022-11-24] MEDS: ASPirin 81 mg TAB PO SCH (09:56)
[2022-11-24] MEDS: POTASSIUM CHL 20 Meq TABLET PO SCH (09:56)
[2022-11-24] MEDS: LISINOPRIL 10 MG TAB PO SCH (09:58)
[2022-11-24 12:44] VITALS: BP 146/69
[2022-11-24 14:10] VITALS: BP 146/69
[2022-11-24 16:52] VITALS: BP 121/61
[2022-11-24] MEDS: ATORVASTATIN 20 MG TAB PO SCH (21:54)
[2022-11-24] MEDS: DOCUSATE SOD 100 MG CAP PO PRN (23:42)
[2022-11-25 05:00] VITALS: BP 144/65
[2022-11-25] MEDS: ACCU-CHEK COMFORT CURVE STRIP VI SCH ×3 (05:41→19:05)
[2022-11-25] MEDS: CEPHALEXIN 250 MG CAP PO SCH ×3 (05:41→21:43)
[2022-11-25] MEDS: SPIRONOLACTONE 25 MG TAB PO SCH ×2 (05:41→19:05)
[2022-11-25] MEDS: InsuLIN REG 1unit/0.01ml Soln (100units/ml) SC SCH ×4 (05:50→23:57)
[2022-11-25 08:40] VITALS: BP 110/75
[2022-11-25] MEDS: ASPirin 81 mg TAB PO SCH (09:53)
[2022-11-25] MEDS: POTASSIUM CHL 20 Meq TABLET PO SCH (09:53)
[2022-11-25] MEDS: LISINOPRIL 10 MG TAB PO SCH (09:54)
[2022-11-25] MEDS: FUROSEMIDE 40 MG/4 ML VIAL IV SCH (10:00)
[2022-11-25 16:53] VITALS: BP 119/74
[2022-11-25] MEDS: ATORVASTATIN 20 MG TAB PO SCH (21:43)
[2022-11-25 22:00] VITALS: BP 126/78
[2022-11-26 05:00] VITALS: BP 127/63
[2022-11-26] MEDS: SPIRONOLACTONE 25 MG TAB PO SCH (06:51)
[2022-11-26] MEDS: ACCU-CHEK COMFORT CURVE STRIP VI SCH ×2 (06:51)
[2022-11-26] MEDS: InsuLIN REG 1unit/0.01ml Soln (100units/ml) SC SCH (06:56)
[2022-11-26] MEDS: CEPHALEXIN 250 MG CAP PO SCH (06:57)
[2022-11-26] MEDS: LISINOPRIL 10 MG TAB PO SCH (10:44)
[2022-11-26] MEDS: ASPirin 81 mg TAB PO SCH (10:44)
[2022-11-26] MEDS: POTASSIUM CHL 20 Meq TABLET PO SCH (10:45)
[2022-11-26] MEDS: FUROSEMIDE 40 MG/4 ML VIAL IV SCH (10:45)
[2022-11-26 11:13] VITALS: BP 123/90
[2022-11-26] MEDS ORDERED: FUROSEMIDE 20 MG TAB PO ONE (11:30)
== END 2022-11-26 12:30 | disposition left against medical advice (07) | DRG 291 ==
LOC: ER 23:55 → EDBD 23:55 → TELE 11-19 06:52 → TELE-EAST 11-21 05:27 → EAST 11-23 12:21
PROVIDERS: ADMIT Internal Medicine; ATTEND Family Medicine
DX: I11.0 Hypertensive heart disease with heart failure (principal); I50.33 Acute on chronic diastolic (congestive) heart failure; L03.116 Cellulitis of left lower limb; Z68.42 Body mass index [BMI] 45.0-49.9, adult; N17.9 Acute kidney failure, unspecified; L03.115 Cellulitis of right lower limb; I16.0 Hypertensive urgency; E11.65 Type 2 diabetes mellitus with hyperglycemia; E66.01 Morbid (severe) obesity due to excess calories; Z53.21 Procedure and treatment not carried out due to patient leaving prior to being seen by health care provider; I34.0 Nonrheumatic mitral (valve) insufficiency; Z20.822 Contact with and (suspected) exposure to COVID-19; E78.5 Hyperlipidemia, unspecified; Z96.643 Presence of artificial hip joint, bilateral; I87.8 Other specified disorders of veins; I87.2 Venous insufficiency (chronic) (peripheral); Z91.199 Patient's noncompliance with other medical treatment and regimen due to unspecified reason; Z99.3 Dependence on wheelchair; Z85.51 Personal history of malignant neoplasm of bladder; Z79.82 Long term (current) use of aspirin
CPT/HCPCS: 36415; 71045; 78452; 80048; 80053; 80061; 81001; 82962; 83036; 83735; 83880; 84443; 84484; 85025; 85379; 85610; 85730; 87426; 93005; 93017; 93306; 93925; 93970; 97110; 97116; 97163; 97530; G0378; J0153; J1815; J2405

== ENCOUNTER 2022-11-26 22:31 | Emergency (ER) | payer MEDICARE, MEDICAID ==
[~2022-11-26] VITALS: Ht 177.8 cm; Wt 127.2 kg
[~2022-11-26 22:31] MED LIST changes: +ASPI-325 PO; +ATOR20TA50 PO; +ATOR40TA52 PO; +CEPH250C PO; +DOCU-265 PO; +FURO1TAB31 PO; +LISI10TA34 PO; +LOSA50TA46 PO; +METF-371 PO; +NIFE1TAB30 PO; +POTA-211 PO; +SPIR25TA PO
[2022-11-26 23:01] VITALS: BP 155/84; RESP 18; O2SAT 96
[2022-11-26 23:12] LABS: Basophils # (auto) 0.1 10 ^3/uL (0-0.2); Eosinophils # (auto) 0.2 10 ^3/uL (0-0.8); Eosinophils % (auto) 1.7 % (0.0-7.0); Hematocrit 47.8 % (41.0-53.0); Hemoglobin 16.5 g/dL (13.5-17.5); Lymphocytes # (auto) 3.1 10 ^3/uL (0.4-5.4); Mean Corpuscular Hemoglobin 32.7 pg (28.0-32.0); Mean Corpuscular Hgb Conc. 34.6 g/dL (32.0-36.0); Mean Corpuscular Volume 94.6 fL (80.0-100.0); Monocytes # (auto) 1.3 10 ^3/uL (0-1.3); Monocytes % (auto) 12.3 % (0.0-12.0); Neutrophils # (auto) 6.2 10 ^3/uL (1.6-8.6); Nucleated Red Blood Cells % 0.1 %; Red Blood Cells 5.05 10^6/uL (4.5-5.90); White Blood Cell 10.9 10^3/uL (4.4-10.8)
[2022-11-26 23:24] LABS: Albumin 4.1 g/dL (3.4-5.0); Calcium 9.1 mg/dL (8.5-10.1); Magnesium 2.3 mg/dL (1.6-2.6); Potassium 4.7 mmol/L (3.5-5.1)
[2022-11-26 23:26] LABS: INR 1.09 (0.9-1.15); Partial Thromboplastin Time 28.1 SEC (24.5-34.5)
[2022-11-26 23:27] LABS: BUN/Creatinine Ratio 25.9 (10.0-20.0); Bilirubin, Total 0.4 mg/dL (0.2-1.0); Total Protein 8.4 g/dL (6.4-8.2)
[2022-11-27 01:47] VITALS: PULSE 91
== END 2022-11-27 05:30 | disposition left against medical advice (07) ==
LOC: EDBD 22:31 → ER 22:31
DX: R07.89 Other chest pain (principal); Z53.21 Procedure and treatment not carried out due to patient leaving prior to being seen by health care provider
CPT/HCPCS: 36415; 71045; 80053; 83735; 83880; 84484; 85025; 85610; 85730; 93005

== ENCOUNTER 2022-12-01 04:15 | Inpatient (IN) | payer MEDICARE, MEDICAID ==
[~2022-12-01] VITALS: Ht 167.6 cm; Wt 144.4 kg
[2022-12-01 04:57] LABS: Basophils # (auto) 0.1 10 ^3/uL (0-0.2); Basophils % (auto) 0.9 % (0.0-2.0); Eosinophils # (auto) 0.2 10 ^3/uL (0-0.8); Eosinophils % (auto) 2.8 % (0.0-7.0); Hemoglobin 13.9 g/dL (13.5-17.5); Lymphocytes # (auto) 1.7 10 ^3/uL (0.4-5.4); Lymphocytes % (auto) 29.9 % (10.0-50.0); Mean Corpuscular Hemoglobin 32.8 pg (28.0-32.0); Mean Corpuscular Hgb Conc. 34.7 g/dL (32.0-36.0); Mean Corpuscular Volume 94.4 fL (80.0-100.0); Monocytes # (auto) 0.6 10 ^3/uL (0-1.3); Monocytes % (auto) 10.5 % (0.0-12.0); Neutrophils # (auto) 3.2 10 ^3/uL (1.6-8.6); Neutrophils % (auto) 55.9 % (37.0-80.0); Nucleated Red Blood Cells % 0.1 %; Red Blood Cells 4.24 10^6/uL (4.5-5.90); Red Cell Distribution Width 12.6 % (11.8-14.3); White Blood Cell 5.7 10^3/uL (4.4-10.8)
[2022-12-01 05:11] LABS: INR 1.09 (0.9-1.15); Partial Thromboplastin Time 30.3 SEC (24.5-34.5)
[2022-12-01 05:12] LABS: Albumin 3.5 g/dL (3.4-5.0); Calcium 8.3 mg/dL (8.5-10.1); Magnesium 2.1 mg/dL (1.6-2.6)
[2022-12-01 05:15] LABS: BUN/Creatinine Ratio 15.9 (10.0-20.0); Bilirubin, Total 0.3 mg/dL (0.2-1.0); Total Protein 7.3 g/dL (6.4-8.2)
[2022-12-01] MEDS: PIPERACILLIN-TAZOB 3.375GM 100 ML IV ONE ×4 (08:00→12:50)
[2022-12-01] MEDS ORDERED: DOCUSATE SOD 100 MG CAP PO PRN (12:15)
[2022-12-01] MEDS ORDERED: ONDANSETRON HCL 4 MG/2 ML VIAL IV PRN (12:15)
[2022-12-01] MEDS ORDERED: MORPHINE SULFATE INJ 2 MG/ml SYRG IV PRN (12:15)
[2022-12-01 17:02] VITALS: PULSE 71; RESP 14; O2SAT 94
[2022-12-01] MEDS: PIPERACILLIN-TAZOB 3.375GM 100 ML IV SCH (17:38)
[2022-12-01 20:10] VITALS: PULSE 83; RESP 20; O2SAT 96
[2022-12-01] MEDS: HYDROcodone-ACET 5/325MG TAB PO PRN (22:21)
[2022-12-01] MEDS: ATORVASTATIN 20 MG TAB PO SCH (22:21)
[2022-12-02] VITALS (9 sets, daily range): BP systolic 127–159; BP diastolic 57–85; PULSE 71–85; RESP 16–19; TEMP 97.3–98.6; O2SAT 94–98
[2022-12-02] MEDS: HYDROcodone-ACET 5/325MG TAB PO PRN (03:11)
[2022-12-02] MEDS: PIPERACILLIN-TAZOB 3.375GM 100 ML IV SCH ×4 (05:56→18:41)
[2022-12-02] MEDS: FUROSEMIDE 40 MG TAB PO SCH (06:03)
[2022-12-02 06:34] LABS: Basophils # (auto) 0.1 10 ^3/uL (0-0.2); Basophils % (auto) 0.9 % (0.0-2.0); Eosinophils # (auto) 0.2 10 ^3/uL (0-0.8); Eosinophils % (auto) 3.2 % (0.0-7.0); Hematocrit 40.8 % (41.0-53.0); Hemoglobin 14.5 g/dL (13.5-17.5); Lymphocytes # (auto) 1.4 10 ^3/uL (0.4-5.4); Lymphocytes % (auto) 22.5 % (10.0-50.0); Mean Corpuscular Hemoglobin 32.8 pg (28.0-32.0); Mean Corpuscular Hgb Conc. 35.5 g/dL (32.0-36.0); Mean Corpuscular Volume 92.5 fL (80.0-100.0); Monocytes # (auto) 0.7 10 ^3/uL (0-1.3); Monocytes % (auto) 11.7 % (0.0-12.0); Neutrophils # (auto) 3.8 10 ^3/uL (1.6-8.6); Neutrophils % (auto) 61.7 % (37.0-80.0); Nucleated Red Blood Cells % 0.2 %; Red Blood Cells 4.41 10^6/uL (4.5-5.90); Red Cell Distribution Width 12.5 % (11.8-14.3); White Blood Cell 6.1 10^3/uL (4.4-10.8)
[2022-12-02 06:56] LABS: Potassium 4.1 mmol/L (3.5-5.1)
[2022-12-02 07:02] LABS: Albumin 3.6 g/dL (3.4-5.0); BUN/Creatinine Ratio 19.1 (10.0-20.0); Bilirubin, Total 0.4 mg/dL (0.2-1.0); Calcium 8.7 mg/dL (8.5-10.1); Total Protein 8.1 g/dL (6.4-8.2)
[2022-12-02] MEDS ORDERED: POTASSIUM CHL 10 Meq TABLET PO SCH (10:00)
[2022-12-02] MEDS ORDERED: LISINOPRIL 10 MG TAB PO SCH (10:00)
[2022-12-02] MEDS ORDERED: ASPirin-EC 81 mg tab PO SCH (10:00)
[2022-12-02] MEDS ORDERED: SPIRONOLACTONE 25 MG TAB PO SCH (10:00)
[2022-12-02] MEDS ORDERED: LOSARTAN POTASSIUM 50 MG TAB PO SCH (10:00)
[2022-12-02] MEDS ORDERED: LISINOPRIL 20 MG TAB PO ONE (12:30)
[2022-12-02] MEDS: ATORVASTATIN 20 MG TAB PO SCH (21:18)
[2022-12-03] MEDS: PIPERACILLIN-TAZOB 3.375GM 100 ML IV SCH ×2 (00:23→06:08)
[2022-12-03 05:00] VITALS: BP 130/71; PULSE 61; RESP 18; TEMP 98; O2SAT 96
[2022-12-03] MEDS: FUROSEMIDE 40 MG TAB PO SCH (06:09)
[2022-12-03] MEDS ORDERED: LISINOPRIL 20 MG TAB PO SCH (10:00)
== END 2022-12-03 11:00 | disposition left against medical advice (07) | DRG 603 ==
LOC: EDBD 04:15 → ER 04:15 → TELE 12:20 → TELE-CENTR 23:59
PROVIDERS: ADMIT Nurse Practitioner Family; ATTEND Family Medicine
DX: L03.115 Cellulitis of right lower limb (principal); Z68.43 Body mass index [BMI] 50.0-59.9, adult; L03.116 Cellulitis of left lower limb; I11.0 Hypertensive heart disease with heart failure; D69.6 Thrombocytopenia, unspecified; E78.5 Hyperlipidemia, unspecified; E66.01 Morbid (severe) obesity due to excess calories; Z53.21 Procedure and treatment not carried out due to patient leaving prior to being seen by health care provider; I25.2 Old myocardial infarction; Z85.51 Personal history of malignant neoplasm of bladder; Z99.3 Dependence on wheelchair; E11.9 Type 2 diabetes mellitus without complications; I50.9 Heart failure, unspecified
CPT/HCPCS: 36415; 71045; 80053; 83605; 83735; 83880; 84484; 85025; 85610; 85730; 87040; 87081; 93005; 96365; G0378; J2543

== ENCOUNTER 2023-12-13 22:10 | Emergency (ER) | payer MEDICAID ==
[~2023-12-13] VITALS: Ht 167.6 cm; Wt 160.0 kg
[~2023-12-13 22:10] MED LIST changes: +LOSA-534 PO; -LOSA50TA46 PO
[2023-12-13 22:35] LABS: Basophils # (auto) 0 10 ^3/uL (0-0.2); Basophils % (auto) 0.8 % (0.0-2.0); Eosinophils # (auto) 0.1 10 ^3/uL (0-0.8); Eosinophils % (auto) 2.3 % (0.0-7.0); Hematocrit 41.9 % (41.0-53.0); Hemoglobin 14.6 g/dL (13.5-17.5); Lymphocytes # (auto) 1.3 10 ^3/uL (0.4-5.4); Lymphocytes % (auto) 23.7 % (10.0-50.0); Mean Corpuscular Hemoglobin 31.7 pg (28.0-32.0); Mean Corpuscular Hgb Conc. 34.8 g/dL (32.0-36.0); Mean Corpuscular Volume 91.2 fL (80.0-100.0); Monocytes # (auto) 0.6 10 ^3/uL (0-1.3); Monocytes % (auto) 10.8 % (0.0-12.0); Neutrophils # (auto) 3.4 10 ^3/uL (1.6-8.6); Neutrophils % (auto) 62.4 % (37.0-80.0); Nucleated Red Blood Cells % 0.2 %; Red Cell Distribution Width 13.7 % (11.8-14.3); White Blood Cell 5.5 10^3/uL (4.4-10.8)
[2023-12-13 22:49] LABS: INR 1.08 (0.9-1.15); Partial Thromboplastin Time 26.6 SEC (24.5-34.5); Prothrombin Time 11.4 sec (9.3-11.8)
[2023-12-13 23:08] LABS: Alanine Aminotransferase 35 U/L (7-40); Albumin 4.1 g/dL (3.2-4.8); Alkaline Phosphatase 127 U/L (46-116); Anion Gap 11 (5-15); Aspartate Aminotransferase 25 U/L (13-40); BUN/Creatinine Ratio 14.1 (10.0-20.0); Blood Urea Nitrogen 14 mg/dL (9-23); Calcium 9.6 mg/dL (8.7-10.4); Carbon Dioxide 25 mmol/L (20-30); Chloride 98 mmol/L (98-107); Magnesium 1.5 mg/dL (1.6-2.6); Sodium 134 mmol/L (136-145)
[2023-12-13 23:09] LABS: Bilirubin, Total 0.5 mg/dL (0.2-1.0); Total Protein 7.2 g/dL (5.7-8.2)
[2023-12-13 23:42] LABS: Glucose 448 mg/dL (74-106)
[2023-12-14 01:23] VITALS: TEMP 98.5
[2023-12-14 04:20] VITALS: BP 168/100
[2023-12-14 04:21] VITALS: PULSE 88; RESP 17; O2SAT 98
[2023-12-14] MEDS: InsuLIN REG 1unit/0.01ml Soln (100units/ml) IV ONE (05:08)
[2023-12-14] MEDS: SODIUM CHLORIDE 0.9% 1,000 ML IV ONE (05:08)
[2023-12-14] MEDS: InsuLIN REG 1unit/0.01ml Soln (100units/ml) SC ONE (05:25)
== END 2023-12-14 06:57 | disposition left against medical advice (07) ==
LOC: EDBD 22:10 → ER 22:10 → EDUNIT# 22:10 → ER 12-14 06:57
DX: R07.89 Other chest pain (principal); E11.65 Type 2 diabetes mellitus with hyperglycemia; R53.1 Weakness; I10 Essential (primary) hypertension; E78.5 Hyperlipidemia, unspecified; Z85.9 Personal history of malignant neoplasm, unspecified; Z98.890 Other specified postprocedural states; Z79.899 Other long term (current) drug therapy
CPT/HCPCS: 36415; 71045; 80053; 82962; 83735; 83880; 84484; 85025; 85610; 85730; 93005; 99285; J1815

== ENCOUNTER 2023-12-15 02:40 | Emergency (ER) | payer MEDICAID ==
[~2023-12-15] VITALS: Ht 182.9 cm; Wt 170.0 kg
[2023-12-15 02:58] VITALS: BP 170/99; PULSE 88; RESP 18; O2SAT 98
== END 2023-12-16 07:55 | disposition left against medical advice (07) ==
LOC: ER 02:40 → EDBD 02:40 → ER 12-16 07:55
DX: E11.9 Type 2 diabetes mellitus without complications (principal); Z53.21 Procedure and treatment not carried out due to patient leaving prior to being seen by health care provider

== ENCOUNTER 2024-01-20 07:12 | Emergency (ER) | payer MEDICARE, MEDICAID ==
[~2024-01-20] VITALS: Ht 167.6 cm; Wt 146.0 kg
[2024-01-20 07:12] VITALS: BP 142/80; PULSE 94; RESP 16; O2SAT 95
== END 2024-01-20 07:29 | disposition left against medical advice (07) ==
LOC: EDSEX 07:12 → ER 07:12 → EDUNIT# 07:12 → EDBD 07:12 → ER 07:29
DX: R07.9 Chest pain, unspecified (principal); Z53.21 Procedure and treatment not carried out due to patient leaving prior to being seen by health care provider

== ENCOUNTER 2024-05-17 22:24 | Emergency (ER) | payer MEDICARE, MEDICAID ==
[~2024-05-17] VITALS: Ht 167.6 cm; Wt 155.0 kg
[2024-05-17 23:08] LABS: Basophils # (auto) 0.1 10 ^3/uL (0-0.2); Basophils % (auto) 0.7 % (0.0-2.0); Eosinophils # (auto) 0.1 10 ^3/uL (0-0.8); Eosinophils % (auto) 1.8 % (0.0-7.0); Hematocrit 46.5 % (41.0-53.0); Hemoglobin 15.6 g/dL (13.5-17.5); Lymphocytes # (auto) 0.7 10 ^3/uL (0.4-5.4); Mean Corpuscular Hemoglobin 30.2 pg (28.0-32.0); Mean Corpuscular Hgb Conc. 33.5 g/dL (32.0-36.0); Mean Corpuscular Volume 90.3 fL (80.0-100.0); Monocytes # (auto) 0.4 10 ^3/uL (0-1.3); Monocytes % (auto) 5.6 % (0.0-12.0); Neutrophils # (auto) 6.7 10 ^3/uL (1.6-8.6); Neutrophils % (auto) 82.9 % (37.0-80.0); Nucleated Red Blood Cells % 0.2 %; Platelet Count (auto) 139 10^3/uL (140-450); Red Blood Cells 5.15 10^6/uL (4.5-5.90); Red Cell Distribution Width 14.5 % (11.8-14.3)
[2024-05-17 23:11] LABS: Urine Bacteria None Seen /hpf (None Seen)
[2024-05-17 23:19] LABS: Urine Blood 2+ /uL (Negative); Urine Clarity Clear (Clear); Urine Color Light-Yellow (Yellow); Urine Protein, UAD 2+ (Negative); Urine Specific Gravity 1.025 (1.001-1.035); Urine Squamous Epithelial Cell FEW /hpf (<5); Urine Urobilinogen Normal (Negative); Urine WBC 2 /hpf (0 - 3); Urine pH 6.5 (5.0-9.0)
[2024-05-17 23:26] LABS: Alanine Aminotransferase 34 U/L (7-40); Albumin 4.5 g/dL (3.2-4.8); Alkaline Phosphatase 128 U/L (46-116); Anion Gap 6 (5-15); Aspartate Aminotransferase 26 U/L (13-40); BUN/Creatinine Ratio 16.3 (10.0-20.0); Bilirubin, Total 0.4 mg/dL (0.2-1.0); Blood Urea Nitrogen 20 mg/dL (9-23); Carbon Dioxide 28 mmol/L (20-31); Chloride 98 mmol/L (98-107); Glucose 329 mg/dL (74-106); Potassium 4.1 mmol/L (3.5-5.1); Sodium 132 mmol/L (136-145); Total Protein 8.3 g/dL (5.7-8.2)
[2024-05-18 00:06] LABS: Lipase 55 U/L (12-53)
--- NOTE | 2024-05-18 01:15 | ED.PDOC ---
HPI Comments This patient is a severely morbidly obese 69-year-old male who arrives to the ED today via EMS due to complaints of chest pain and general weakness concerns. Patient was at a bus stop when the chest pain event happened. Patient has had chest pain events in the past and additionally, it is currently handling bilateral lower extremity wounds. Patient states he was recently at [facility] and discharged without any definitive diagnosis or follow up. Patient wa s hypertensive on arrival. Chief Complaint: Chest Pain Time Seen by MD: 22:27 Primary Care Provider: SANDRA Reviewed Notes: Nurses Notes, Solar Thermal Technician Notes Allergies: Coded Allergies: NO KNOWN ALLERGIES (Unverified , 06/25/16) Home Meds Active Scripts Potassium Chloride (Klor-Con 10) 10 Meq Tab, 10 MEQ PO DAILY for 30 Days, #30 TAB 3 Refills Prov:GOVIND CHRISTIANSON MD 11/22/22 Spironolactone (Aldactone) 25 Mg Tab, 25 MG PO DAILY for 30 Days, #30 TAB 3 Refills Prov:GOVIND CHRISTIANSON MD 11/22/22 Metformin Hydrochloride (Metformin Hcl) 850 Mg Tab, 850 MG PO BID for 30 Days, #60 TAB 3 Refills Prov:GOVIND CHRISTIANSON MD 11/22/22 Aspirin (Aspirin Low Dose) 81 Mg Tab, 81 MG PO DAILY for 30 Days, #30 TAB 3 Refills Prov:GOVIND CHRISTIANSON MD 11/22/22 Furosemide (Lasix) 40 Mg Tab, 40 MG PO QAM for 30 Days, #30 TAB 3 Refills Prov:GOVIND CHRISTIANSON MD 11/22/22 Lisinopril (Lisinopril) 10 Mg Tab, 20 MG PO DAILY for 30 Days, #60 TAB 3 Refills Prov:GOVIND CHRISTIANSON MD 11/22/22 Docusate Sodium (Docusate Sodium) 100 Mg Cap, 100 MG PO BIDPRN PRN for 30 Days, #40 CAP Prov:GOVIND CHRISTIANSON MD 11/22/22 Cephalexin (KEFLEX CAPSULE) 250 Mg Cp, 500 MG PO TID for 7 Days, #21 CAP Prov:GOVIND CHRISTIANSON MD 11/22/22 Atorvastatin Calcium (ATORVASTATIN CALCIUM) 20 Mg Tab, 20 MG PO HS for 30 Days, #30 TAB 2 Refills Prov:GOVIND CHRISTIANSON MD 11/22/22 Reported Medications Atorvastatin Calcium (ATORVASTATIN CALCIUM) 40 Mg Tab, 1 TAB PO 11/21/22 Nifedipine (Nifedipine Er) 60 Mg Tab, 60 MG PO DAILY 11/20/22 Losartan Potassium (Losartan Potassium) 50 Mg Tab, 1 TAB PO DAILY 11/20/22 Gabapentin (Gabapentin) Unknown Strength Cap, PO, CAP 06/17/20 Metformin Hydrochloride (Metformin Hcl) Unknown Strength Tab, PO, TAB 06/17/20 Furosemide (Lasix) Unknown Strength Tb, GT, TAB 06/17/20 Information Source: Patient, Emergency Med Personnel Mode of Arrival: EMS Severity: Moderate Timing: Hours Duration: Since onset Prehospital treatment: 12 Lead EKG Location: Substernal Radiation: No Radiation, Back Quality: Sharp, Squeezing Onset: At Rest Cardiac Risk Factors: Diabetes PE Risk Factors: None History of: Similar pain in past Past Medical History PAST MEDICAL HISTORY: Cancer, DM, High Lipids, HTN Surgical History: PTCA Family History Family History: Unobtainable Social History Smoker: Non-Smoker Alcohol: Denies ETOH Use Drugs: Denies Drug Use Lives In: Home Constitutional: reports: malaise, weakness; denies: chills, diaphoresis, fatigue, fever, sweats, others EENTM: denies: blurred vision, double vision, ear bleeding, ear discharge, ear drainage, ear pain, ear ringing, eye pain, eye redness, hearing loss, mouth pain, mouth swelling, nasal discharge, nose bleeding, nose congestion, nose pain, photophobia, tearing, throat pain, throat swelling, voice changes, others Respiratory: denies: cough, hemoptysis, orthopnea, SOB at rest, shortness of breath, SOB with excertion, stridor, wheezing, others Cardiovascular: reports: chest pain; denies: dizzy spells, diaphoresis, Dyspnea on exertion, edema, irregular heart beat, left arm pain, lightheadedness, palpitations, PND, syncope, others Gastrointestinal: denies: abdomen distended, abdominal pain, blood streaked bowels, constipated, diarrhea, dysphagia, difficulty swallowing, hematemesis, melena, nausea, poor appetite, poor fluid intake, rectal bleeding, rectal pain, vomiting, others Genitourinary: denies: burning, dysuria, flank pain, frequency, hematuria, incontinence, penile discharge, penile sore, pain, testicle pain, testicle swelling, urgency, others Neurological: denies: dizziness, fainting, headache, left sided numbness, left sided weakness, numbness, paresthesia, pre-existing deficit, right sided numbness, right sided weakness, seizure, speech problems, tingling, tremors, weakness, others Musculoskeletal: denies: back pain, gout, joint pain, joint swelling, muscle pain, muscle stiffness, neck pain, others Integumetry: denies: bruises, change in color, change in hair/nails, dryness, laceration, lesions, lumps, rash, wounds, others Allergic/Immunocompromised: denies: Difficulty Healing, Frequent Infections, Hives, Itching, others Hematologic/Lymphatic: denies: anemia, blood clots, easy bleeding, easy bruising, swollen glands, others Endocrine: denies: excessive hunger, excessive sweating, excessive thirst, excessive urination, flushing, intolerance to cold, intolerance to heat, unexplained weight gain, unexplained weight loss, others Psychiatric: denies: anxiety, bipolar disorder, depression, hopeless, panic disorder, schizophrenia, sleepless, suicidal, others Physical Exam General Appearance: Moderate Distress (Moderate distress due to chest pain concerns. Patient appears to be in poor overall health.), Normal HEENT: Normal ENT Inspection, Pharynx Normal, TMs Normal Neck: Full Range of Motion, Non-Tender, Normal, Normal Inspection Respiratory: Chest Non-Tender, Lungs Clear, No Accessory Muscle Use, No Respiratory Distress, Normal Breath Sounds, Other (Unremarkable auscultation bilateral lung dillard.) Cardiovascular: No Edema, No JVD, No Murmur, No Gallop, Normal Peripheral Pulses, Regular Rate/Rhythm, Other (Unremarkable cardiac evaluation.) Breast Exam: Deferred Gastrointestinal: No Organomegaly, Non Tender, No Pulsatile Mass, Normal Bowel Sounds, Soft Genitalia: Deferred Pelvic: Deferred Rectal: Deferred Extremities: Other (Lower extremities were wrapped in gauze due to bilateral lower extremity wounds from venous stasis.) Neurologic: Alert, No Sensory Deficits Cerebellar Function: Normal Reflexes: Normal Skin: Dry, Normal Color, Warm Lymphatic: No Adenopathy Was a procedure done? Was a procedure done?: No CP Differential Dx Differential Diagnosis: A-fib, A-Flutter, Angina, Anxiety / Panic Attack, Atrial Dysrhythmia, AV Block 1st Degree, [place] Differential Diagnosis: CHF, HTN Essential Differential Diagnosis: Angina X-Ray, Labs, Meds, VS Vital Signs Date Time Temp Pulse Resp B/P (MAP) Pulse Ox O2 Delivery O2 Flow Rate FiO2 05/17/24 23:34 95 05/17/24 22:27 102 05/17/24 22:25 97.8 100 20 185/89 (121) 97 Lab Test 05/17/24 23:00 05/17/24 22:55 Range/Units Urine Color Light-yellow Yellow Urine Clarity Clear Clear Urine pH 6.5 5.0-9.0 Urine Specific [place] 1.025 1.001-1.035 Urine Protein 2+ H Negative Urine Ketones Trace Negative Urine Blood 2+ H Negative /uL Urine Nitrite Negative Negative Urine Bilirubin Negative Negative Urine Urobilinogen Normal Negative mg/dL Urine Leukocyte Esterase Negative Negative /uL Urine RBC 50 0 - 3 /hpf Urine WBC 2 0 - 3 /hpf Urine Squamous Epithelial Cells Few <5 /hpf Urine Bacteria None seen None Seen /hpf Urine Glucose 4+ H Normal mg/dL White Blood Count 8.0 4.4-10.8 10^3/uL Red Blood Count 5.15 4.5-5.90 10^6/uL Hemoglobin 15.6 13.5-17.5 g/dL Hematocrit 46.5 41.0-53.0 % Mean Corpuscular Volume 90.3 80.0-100.0 fL Mean Corpuscular Hemoglobin 30.2 28.0-32.0 pg Mean Corpuscular Hemoglobin Concent 33.5 32.0-36.0 g/dL Red Cell Distribution Width 14.5 H 11.8-14.3 % Platelet Count 139 L 140-450 10^3/uL Mean Platelet Volume 8.9 6.9-10.8 fL Neutrophils (%) (Auto) 82.9 H 37.0-80.0 % Lymphocytes (%) (Auto) 9.0 L 10.0-50.0 % Monocytes (%) (Auto) 5.6 0.0-12.0 % Eosinophils (%) (Auto) 1.8 0.0-7.0 % Basophils (%) (Auto) 0.7 0.0-2.0 % Neutrophils # (Auto) 6.7 1.6-8.6 10 ^3/uL Lymphocytes # (Auto) 0.7 0.4-5.4 10 ^3/uL Monocytes # (Auto) 0.4 0-1.3 10 ^3/uL Eosinophils # (Auto) 0.1 0-0.8 10 ^3/uL Basophils # (Auto) 0.1 0-0.2 10 ^3/uL Nucleated Red Blood Cells 0.2 % Sodium Level 132 L 136-145 mmol/L Potassium Level 4.1 3.5-5.1 mmol/L Chloride Level 98 98-107 mmol/L Carbon Dioxide Level 28 20-31 mmol/L Anion Gap 6 5-15 Blood Urea Nitrogen 20 9-23 mg/dL Creatinine 1.23 0.700-1.30 mg/dL Glomerular Filtration Rate Calc 63 >90 mL/min BUN/Creatinine Ratio 16.3 10.0-20.0 Serum Glucose 329 H 74-106 mg/dL Lactic Acid Level 1.7 0.4-2.0 mmol/L Calcium Level 10.0 8.7-10.4 mg/dL Total Bilirubin 0.4 0.2-1.0 mg/dL Aspartate Amino Transferase (AST) 26 13-40 U/L Alanine Aminotransferase (ALT) 34 7-40 U/L Alkaline Phosphatase 128 H 46-116 U/L Troponin I High Sensitivity 7 </=54 ng/L B-Type Natriuretic Peptide 34.85 0-100 pg/mL Total Protein 8.3 H 5.7-8.2 g/dL Albumin 4.5 3.2-4.8 g/dL Lipase 55 H 12-53 U/L X-Ray, Labs, Meds, VS Comment All studies performed the ED were evaluated by me personally. Serum laboratories revealed a hyperglycemic state of near 400. Patient displayed elevated lipase and had a large deposition of red blood cells in his urine. EKG revealed a sinus or ectopic atrial tachycardia with a rate of 102. Ventricular premature complexes were appreciated as well as a prolonged SC interval and right bundle-branch block. SC interval of 243 and QT interval of 400. Patient will be admitted for a cardiac consultation tomorrow as well as management of his hyperglycemic state and a wound care evaluation. Time of 1ST Reevaluation: 01:14 Reevaluation 1ST: Improved Consultation: PCP, Cardiology Patient Education/Counseling: Diagnosis, Treatment Family Education/Counseling: Diagnosis, Treatment Departure 1 Departure Time of Disposition: 01:15 Impression: Primary Impression: ACS (acute coronary syndrome) Additional Impressions: Hyperglycemia due to diabetes mellitus Hematuria Disposition: ADMITTED INPATIENT Condition: Fair Discharged With: Self Critical Care Note Critical Care Time?: No Stability Stability form required: No Heart Score Heart Score: Heart Score Response (Comments) Value History Slightly Suspicious 0 EKG Repolarization Disturb 1 Age >65 2 Risk Factors 1 or 2 risk factors 1 Troponin Normal limit 0 Total 4 CANDACE BAE PAC May 18, 2024 01:15
[2024-05-18] MEDS: cloNIDine HCL 0.1 MG TAB PO ONE (02:14)
[2024-05-18] MEDS: INSULIN LISPRO (HUMAN) 100 UNITS/ML ML SC ONE (02:16)
[2024-05-18] MEDS: ASPirin-EC 325mg tab PO ONE (02:37)
[2024-05-18] MEDS: SODIUM CHLORIDE 0.9% 1,000 ML IV ONE (02:50)
[2024-05-18 04:36] VITALS: BP 172/82; PULSE 89; RESP 20; TEMP 98.8; O2SAT 98
--- NOTE | 2024-05-19 14:02 | ECG ---
[facility] Test Date: 2024-05-17 Test Time: 22:27:26 Pat Name: JUAQUIN ANTUNEZ Department: er Room: Gender: M Icing Coater: : 1955 Requested By: CANDACE BAE Order Number: [id number] Reading MD: Deepak Coulter Measurements Intervals [employer] Rate: 102 P: 212 UT: 243 QRS: 9 QRSD: 151 T: 50 QT: 400 QTc: 522 Interpretive Statements Sinus or ectopic atrial tachycardia Ventricular premature complex Prolonged UT interval Right bundle branch block Electronically Signed On 05-20-2024 18:17:06 PST by Deepak Coulter Please click the below link to view image of tracing.
== END 2024-05-18 11:39 | disposition left against medical advice (07) ==
LOC: EDBD 22:24 → ER 22:24
DX: I24.9 Acute ischemic heart disease, unspecified (principal); E11.65 Type 2 diabetes mellitus with hyperglycemia; R31.9 Hematuria, unspecified; I10 Essential (primary) hypertension; E78.5 Hyperlipidemia, unspecified; Z79.82 Long term (current) use of aspirin; Z79.84 Long term (current) use of oral hypoglycemic drugs; Z79.899 Other long term (current) drug therapy
CPT/HCPCS: 36415; 80053; 81001; 82962; 83605; 83690; 83880; 84484; 85025; 93005

== ENCOUNTER 2024-05-18 16:47 | Emergency (ER) | payer MEDICARE, MEDICAID ==
[~2024-05-18] VITALS: Ht 167.6 cm; Wt 155.0 kg
[2024-05-18 16:52] VITALS: BP 124/103; RESP 25; O2SAT 95
[2024-05-18 17:23] VITALS: PULSE 80
--- NOTE | 2024-05-18 17:23 | ED.PDOC ---
History of Present Illness HPI Comments 69-year-old male who comes with chief complaint of chest pain. The patient is brought in by ambulance accompanied by armed security officer. The patient states that he was here earlier with chest pain and with natasha be admitted to the hospital. We did go ahead and review the chart and it seems that the patient barbara hwang have been admitted but became somewhat belligerent and then decided to leave. The patient was actually seen at [facility] a couple days ago and was transported by paramedics there. At that time, the patient's chest pain was addressed and he was discharge. The patient was given a prescription that was sent to [facility] which he did not potato picker at the time. Today, the patient stated that he ate and then he was headed to [employer] [employer] to go potato picker his prescriptions. The patient was being transported by van and when the van mixer crane operator was trying to unload him, he became very belligerent and started taking her things and throwing it out of the van. The patient was very uncooperative and so the band mixer crane operator had to call the police to come and address and situation. At that time the patient then complained of chest pain and salt the paramedics were also call. With the paramedics arrived, they transfer the patient to our facility. When the officer arrived, the patient also was extremely belligerent and uncooperative. Upon arrival, the patient's Accu-Chek was 278. The patient stated that his pain was a 9/10. He does have a power of spud sorter on the phone who has also been giving us the patient's medical history. While trying to take the history, the patient has been yelling and screaming and uncooperative. Chief Complaint: Mcfp Check Time Seen by : 16:57 Primary Care Provider: UNKNOWN Reviewed Notes: Nurses Notes, Software Sales Consultant Notes, Medications, Allergies (No allergies to medications) Allergies: Coded Allergies: NO KNOWN ALLERGIES (Unverified , 06/25/16) Home Meds Active Scripts Potassium Chloride (Klor-Con 10) 10 Meq Tab, 10 MEQ PO DAILY for 30 Days, #30 TAB 3 Refills Prov:GOVIND CHRISTIANSON MD 11/22/22 Spironolactone (Aldactone) 25 Mg Tab, 25 MG PO DAILY for 30 Days, #30 TAB 3 Refills Prov:GOVIND CHRISTIANSON MD 11/22/22 Metformin Hydrochloride (Metformin Hcl) 850 Mg Tab, 850 MG PO BID for 30 Days, #60 TAB 3 Refills Prov:GOVIND CHRISTIANSON MD 11/22/22 Aspirin (Aspirin Low Dose) 81 Mg Tab, 81 MG PO DAILY for 30 Days, #30 TAB 3 Refills Prov:GOVIND CHRISTIANSON MD 11/22/22 Furosemide (Lasix) 40 Mg Tab, 40 MG PO QAM for 30 Days, #30 TAB 3 Refills Prov:GOVIND CHRISTIANSON MD 11/22/22 Lisinopril (Lisinopril) 10 Mg Tab, 20 MG PO DAILY for 30 Days, #60 TAB 3 Refills Prov:GOVIND CHRISTIANSON MD 11/22/22 Docusate Sodium (Docusate Sodium) 100 Mg Cap, 100 MG PO BIDPRN PRN for 30 Days, #40 CAP Prov:GOVIND CHRISTIANSON MD 11/22/22 Cephalexin (KEFLEX CAPSULE) 250 Mg Cp, 500 MG PO TID for 7 Days, #21 CAP Prov:GOVIND CHRISTIANSON MD 11/22/22 Atorvastatin Calcium (ATORVASTATIN CALCIUM) 20 Mg Tab, 20 MG PO HS for 30 Days, #30 TAB 2 Refills Prov:GOVIND CHRISTIANSON MD 11/22/22 Reported Medications Atorvastatin Calcium (ATORVASTATIN CALCIUM) 40 Mg Tab, 1 TAB PO 11/21/22 Nifedipine (Nifedipine Er) 60 Mg Tab, 60 MG PO DAILY 11/20/22 Losartan Potassium (Losartan Potassium) 50 Mg Tab, 1 TAB PO DAILY 11/20/22 Gabapentin (Gabapentin) Unknown Strength Cap, PO, CAP 06/17/20 Metformin Hydrochloride (Metformin Hcl) Unknown Strength Tab, PO, TAB 06/17/20 Furosemide (Lasix) Unknown Strength Tb, GT, TAB 06/17/20 Information Source: Patient, Law Enforcement, Emergency Med Personnel Mode of Arrival: EMS Severity: Mild Timing: Days Duration: Intermittent Prehospital treatment: 12 Lead EKG, Fraud Representative Associated signs and symptoms No associated shortness a breath but the patient is complaining of chest pain. No nausea or vomiting. Past Medical History PAST MEDICAL HISTORY: Cancer (Bladder cancer), DM, High Lipids, HTN Surgical History: PTCA, Tonsillectomy Surgical History (Other): Bladder surgery, penile surgery, hip surgeries Family History Family History: Unobtainable Social History Smoker: Non-Smoker Alcohol: Denies ETOH Use Drugs: Denies Drug Use Lives In: Home Constitutional: denies: chills, diaphoresis, fatigue, fever, malaise, sweats, weakness, others EENTM: denies: blurred vision, double vision, ear bleeding, ear discharge, ear drainage, ear pain, ear ringing, eye pain, eye redness, hearing loss, mouth pain, mouth swelling, nasal discharge, nose bleeding, nose congestion, nose pain, photophobia, tearing, throat pain, throat swelling, voice changes, others Respiratory: denies: cough, hemoptysis, orthopnea, SOB at rest, shortness of breath, SOB with excertion, stridor, wheezing, others Cardiovascular: reports: chest pain; denies: dizzy spells, diaphoresis, Dyspnea on exertion, edema, irregular heart beat, left arm pain, lightheadedness, palpitations, PND, syncope, others Gastrointestinal: denies: abdomen distended, abdominal pain, blood streaked bowels, constipated, diarrhea, dysphagia, difficulty swallowing, hematemesis, melena, nausea, poor appetite, poor fluid intake, rectal bleeding, rectal pain, vomiting, others Genitourinary: denies: burning, dysuria, flank pain, frequency, hematuria, incontinence, penile discharge, penile sore, pain, testicle pain, testicle swelling, urgency, others Neurological: denies: dizziness, fainting, headache, left sided numbness, left sided weakness, numbness, paresthesia, pre-existing deficit, right sided numbness, right sided weakness, seizure, speech problems, tingling, tremors, weakness, others Musculoskeletal: denies: back pain, gout, joint pain, joint swelling, muscle pain, muscle stiffness, neck pain, others Integumetry: denies: bruises, change in color, change in hair/nails, dryness, laceration, lesions, lumps, rash, wounds, others Allergic/Immunocompromised: denies: Difficulty Healing, Frequent Infections, Hives, Itching, others Hematologic/Lymphatic: denies: anemia, blood clots, easy bleeding, easy bruising, swollen glands, others Endocrine: denies: excessive hunger, excessive sweating, excessive thirst, excessive urination, flushing, intolerance to cold, intolerance to heat, unexplained weight gain, unexplained weight loss, others Psychiatric: denies: anxiety, bipolar disorder, depression, hopeless, panic disorder, schizophrenia, sleepless, suicidal, others Physical Exam General Appearance: No Apparent Distress, Obese HEENT: Normal ENT Inspection, Pharynx Normal, TMs Normal Neck: Full Range of Motion, Non-Tender, Normal, Normal Inspection Respiratory: Chest Non-Tender, Lungs Clear, No Accessory Muscle Use, No Respiratory Distress, Normal Breath Sounds Cardiovascular: No Edema, No JVD, No Murmur, No Gallop, Normal Peripheral Pulses, Regular Rate/Rhythm Breast Exam: Deferred Gastrointestinal: No Organomegaly, Non Tender, No Pulsatile Mass, Normal Bowel Sounds, Soft Genitalia: Deferred Pelvic: Deferred Rectal: Deferred Extremities: No calf tenderness, Normal capillary refill, Pedal edema, Other (The lower extremities are wrapped in dressings at this time) Musculoskeletal : Apperance: Normal Neurologic: Alert, drug discovery informatics specialist II-XII nml as Tested, No Motor Deficits, Normal Affect, Normal Mood, No Sensory Deficits Cerebellar Function: Normal Reflexes: Normal Skin: Dry, Normal Color, Warm Lymphatic: No Adenopathy Was a procedure done? Was a procedure done?: No EKG EKG : Pulse Rate (adult): 80 [place]: Normal Cardiac Rhythm: NSR Block: RBBB ST: Nonsp Differential Dx Considerations may include: ACS, OK, musculoskeletal pain X-Ray, Labs, Meds, VS Vital Signs Date Time Temp Pulse Resp B/P (MAP) Pulse Ox O2 Delivery O2 Flow Rate FiO2 05/18/24 17:23 80 05/18/24 16:57 80 05/18/24 16:52 98.0 86 25 124/103 (110) 95 Lab Test 05/18/24 17:33 Range/Units White Blood Count 6.1 4.4-10.8 10^3/uL Red Blood Count 4.90 4.5-5.90 10^6/uL Hemoglobin 14.8 13.5-17.5 g/dL Hematocrit 43.5 41.0-53.0 % Mean Corpuscular Volume 88.6 80.0-100.0 fL Mean Corpuscular Hemoglobin 30.3 28.0-32.0 pg Mean Corpuscular Hemoglobin Concent 34.1 32.0-36.0 g/dL Red Cell Distribution Width 14.0 11.8-14.3 % Platelet Count 145 140-450 10^3/uL Mean Platelet Volume 9.1 6.9-10.8 fL Neutrophils (%) (Auto) 72.2 37.0-80.0 % Lymphocytes (%) (Auto) 16.1 10.0-50.0 % Monocytes (%) (Auto) 8.8 0.0-12.0 % Eosinophils (%) (Auto) 2.4 0.0-7.0 % Basophils (%) (Auto) 0.5 0.0-2.0 % Neutrophils # (Auto) 4.4 1.6-8.6 10 ^3/uL Lymphocytes # (Auto) 1.0 0.4-5.4 10 ^3/uL Monocytes # (Auto) 0.5 0-1.3 10 ^3/uL Eosinophils # (Auto) 0.1 0-0.8 10 ^3/uL Basophils # (Auto) 0 0-0.2 10 ^3/uL Nucleated Red Blood Cells 0.2 % Sodium Level 136 136-145 mmol/L Potassium Level 4.4 3.5-5.1 mmol/L Chloride Level 101 98-107 mmol/L Carbon Dioxide Level 29 20-31 mmol/L Anion Gap 6 5-15 Blood Urea Nitrogen 20 9-23 mg/dL Creatinine 1.14 0.700-1.30 mg/dL Glomerular Filtration Rate Calc 69 >90 mL/min BUN/Creatinine Ratio 17.5 10.0-20.0 Serum Glucose 276 H 74-106 mg/dL Calcium Level 9.4 8.7-10.4 mg/dL Troponin I High Sensitivity 6 </=54 ng/L The patient's blood pressure is 124/103 The patient's Accu-Chek is 278 A troponin levels being drawn at this time. The patient is being given clonidine 0.2 mg by mouth for the elevated blood pressure The patient's CBC and chemistry panel are within normal limits. The glucose is 276 The troponin level is negative At this time we feel that the patient can be safely discharged The patient was cleared to be taken by law enforcement Images Reviewed?: Images reviewed and evaluated by me Time of 1ST Reevaluation: 17:21 Reevaluation 1ST: Unchanged Patient Education/Counseling: Diagnosis, Treatment, Prognosis, Need For Follow Up Family Education/Counseling: No Family Present Departure 1 Departure Time of Disposition: 18:51 Impression: Primary Impression: Non-cardiac chest pain Additional Impressions: Behavioral disorder Hyperglycemia Disposition: 01 HOME / SELF CARE / HOMELESS Condition: Fair Discharged With: Self Critical Care Note Critical Care Time?: No Stability Stability form required: No Heart Score Heart Score: Heart Score Response (Comments) Value History Slightly Suspicious 0 EKG Normal 0 Age >65 2 Risk Factors 1 or 2 risk factors 1 Troponin Normal limit 0 Total 3 JOSEPH MAR MD May 18, 2024 17:23
[2024-05-18 17:52] LABS: Basophils # (auto) 0 10 ^3/uL (0-0.2); Basophils % (auto) 0.5 % (0.0-2.0); Eosinophils # (auto) 0.1 10 ^3/uL (0-0.8); Eosinophils % (auto) 2.4 % (0.0-7.0); Hematocrit 43.5 % (41.0-53.0); Hemoglobin 14.8 g/dL (13.5-17.5); Lymphocytes % (auto) 16.1 % (10.0-50.0); Mean Corpuscular Hemoglobin 30.3 pg (28.0-32.0); Mean Corpuscular Hgb Conc. 34.1 g/dL (32.0-36.0); Mean Corpuscular Volume 88.6 fL (80.0-100.0); Monocytes # (auto) 0.5 10 ^3/uL (0-1.3); Monocytes % (auto) 8.8 % (0.0-12.0); Neutrophils # (auto) 4.4 10 ^3/uL (1.6-8.6); Neutrophils % (auto) 72.2 % (37.0-80.0); Nucleated Red Blood Cells % 0.2 %; Platelet Count (auto) 145 10^3/uL (140-450); White Blood Cell 6.1 10^3/uL (4.4-10.8)
--- NOTE | 2024-05-18 17:57 | ECG ---
[facility] Test Date: 2024-05-18 Test Time: 16:57:43 Pat Name: JUAQUIN ANTUNEZ Department: Ed Room: Gender: M Acid Loader: : 1955 Requested By: JOSEPH MAR Order Number: [id number] Reading MD: Measurements Intervals [place] Rate: 80 P: -12 ME: 312 QRS: 42 QRSD: 145 T: 24 QT: 413 QTc: 477 Interpretive Statements Sinus rhythm Prolonged ME interval Right bundle branch block Baseline wander in lead(s) V2 Please click the below link to view image of tracing.
[2024-05-18 18:04] LABS: Chloride 101 mmol/L (98-107); Potassium 4.4 mmol/L (3.5-5.1)
[2024-05-18 18:05] LABS: Anion Gap 6 (5-15); Calcium 9.4 mg/dL (8.7-10.4); Carbon Dioxide 29 mmol/L (20-31)
[2024-05-18 18:10] LABS: BUN/Creatinine Ratio 17.5 (10.0-20.0); Blood Urea Nitrogen 20 mg/dL (9-23); Glucose 276 mg/dL (74-106); Sodium 136 mmol/L (136-145)
== END 2024-05-18 19:59 | disposition home or self-care (01) ==
LOC: EDBD 16:47 → ER 16:47 → EDUNIT# 16:47 → ER 19:59
DX: R07.89 Other chest pain (principal); E11.65 Type 2 diabetes mellitus with hyperglycemia; F91.9 Conduct disorder, unspecified; I10 Essential (primary) hypertension; E78.5 Hyperlipidemia, unspecified; Z85.51 Personal history of malignant neoplasm of bladder; Z79.82 Long term (current) use of aspirin; Z79.84 Long term (current) use of oral hypoglycemic drugs; Z79.899 Other long term (current) drug therapy; Z90.89 Acquired absence of other organs; Z98.890 Other specified postprocedural states
CPT/HCPCS: 36415; 80048; 84484; 85025; 93005

== ENCOUNTER 2024-05-18 20:41 | Emergency (ER) | payer MEDICARE, MEDICAID ==
[~2024-05-18] VITALS: Ht 175.3 cm; Wt 77.0 kg
[2024-05-18 20:50] VITALS: BP 137/90; PULSE 62; RESP 24; O2SAT 100
--- NOTE | 2024-05-18 22:51 | ED.PDOC ---
Altered Mental Status Chief Complaint: Chest pain Comments Patient was seen in the ambulance [place]. Brought in by EMS for chest pain. Patient was picked up at a gas station down the street. Patient previously discharged from the hospital approximate 2 hours prior to arrival. Patient was very rude to staff and unwilling to leave wheelchair when he was discharged previously. Patient was made many vulgar, it was too security staff and threatening security staff. Stock Control Clerk's Department was called to have patient was scored off premises. Attestation Rapid evaluation performed. Patient left before full evaluation completed. GIA MORGAN May 18, 2024 22:51
== END 2024-05-18 23:36 | disposition left against medical advice (07) ==
LOC: ER 20:41 → EDBD 20:41 → EDUNIT# 20:41 → ER 23:36
DX: R07.89 Other chest pain (principal); Z53.21 Procedure and treatment not carried out due to patient leaving prior to being seen by health care provider

== ENCOUNTER 2025-01-15 22:30 | Emergency (ER) | payer MEDICARE, MEDICAID ==
[~2025-01-15] VITALS: Ht 167.6 cm; Wt 154.0 kg
--- NOTE | 2025-01-15 23:17 | ED.PDOC ---
SOB-HPI HPI Comments 69-year-old male came to ER via EMS for bilateral lower extremity swelling. Patient does have history of hypertension, diabetes and congestive heart failure. Has been complaining of productive cough for the past 3 weeks, associated with shortness a breath, chest tightness, and worsening bipedal edema. Upon arrival blood pressure was 214/126 mm Hg, saturating 95% room air Chief Complaint: Lower Extremity Time Seen by MD: 23:17 Primary Care Provider: UNKNOWN Reviewed notes: Manager Location Notes Information Source: Patient Mode of Arrival: EMS Severity: Moderate Timing: Days Duration: Since onset Context: With Light Exertion, With Heavy Exertion History of: CHF Prehospital treatment: Oxygen Modifying Factors: Nothing Associated Signs and Symptoms: Cough Quality: Tightness Radiation: No Radiation Location: Chest (R), Chest (L) If cough with SOB: Productive Past Medical History PAST MEDICAL HISTORY: Cancer, CHF, DM, High Lipids, HTN, [place] Surgical History: PTCA, Tonsillectomy Family History Family History: Unobtainable Social History Smoker: Non-Smoker Alcohol: Denies ETOH Use Drugs: Denies Drug Use Lives In: Home Constitutional: denies: chills, diaphoresis, fatigue, fever, malaise, sweats, weakness, others EENTM: denies: blurred vision, double vision, ear bleeding, ear discharge, ear drainage, ear pain, ear ringing, eye pain, eye redness, hearing loss, mouth pain, mouth swelling, nasal discharge, nose bleeding, nose congestion, nose pain, photophobia, tearing, throat pain, throat swelling, voice changes, others Respiratory: reports: cough, SOB at rest, shortness of breath, SOB with excertion; denies: hemoptysis, orthopnea, stridor, wheezing, others Cardiovascular: reports: chest pain, edema; denies: dizzy spells, diaphoresis, Dyspnea on exertion, irregular heart beat, left arm pain, lightheadedness, palpitations, PND, syncope, others Gastrointestinal: denies: abdomen distended, abdominal pain, blood streaked bowels, constipated, diarrhea, dysphagia, difficulty swallowing, hematemesis, melena, nausea, poor appetite, poor fluid intake, rectal bleeding, rectal pain, vomiting, others Genitourinary: denies: burning, dysuria, flank pain, frequency, hematuria, incontinence, penile discharge, penile sore, pain, testicle pain, testicle swelling, urgency, others Neurological: denies: dizziness, fainting, headache, left sided numbness, left sided weakness, numbness, paresthesia, pre-existing deficit, right sided numbness, right sided weakness, seizure, speech problems, tingling, tremors, weakness, others Musculoskeletal: denies: back pain, gout, joint pain, joint swelling, muscle pain, muscle stiffness, neck pain, others Integumetry: denies: bruises, change in color, change in hair/nails, dryness, laceration, lesions, lumps, rash, wounds, others Allergic/Immunocompromised: denies: Difficulty Healing, Frequent Infections, Hives, Itching, others Hematologic/Lymphatic: denies: anemia, blood clots, easy bleeding, easy bruising, swollen glands, others Endocrine: denies: excessive hunger, excessive sweating, excessive thirst, excessive urination, flushing, intolerance to cold, intolerance to heat, unexplained weight gain, unexplained weight loss, others Psychiatric: denies: anxiety, bipolar disorder, depression, hopeless, panic disorder, schizophrenia, sleepless, suicidal, others Physical Exam General Appearance: No Apparent Distress, Normal HEENT: Normal ENT Inspection, Pharynx Normal, TMs Normal Neck: Full Range of Motion, Non-Tender, Normal, Normal Inspection Respiratory: Chest Non-Tender, Lungs Clear, No Accessory Muscle Use, No Respiratory Distress, Normal Breath Sounds Cardiovascular: No Edema, No JVD, No Murmur, No Gallop, Normal Peripheral Pulses, Regular Rate/Rhythm Breast Exam: Deferred Gastrointestinal: No Organomegaly, Non Tender, No Pulsatile Mass, Normal Bowel Sounds, Soft Genitalia: Deferred Pelvic: Deferred Rectal: Deferred Extremities: No calf tenderness, Normal capillary refill, Normal inspection, Normal range of motion, Non-tender, No pedal edema Musculoskeletal : Apperance: Normal Neurologic: Alert, digital media director II-XII nml as Tested, No Motor Deficits, Normal Affect, Normal Mood, No Sensory Deficits Cerebellar Function: Normal Reflexes: Normal Skin: Dry, Normal Color, Warm Lymphatic: No Adenopathy Was a procedure done? Was a procedure done?: No Differential Dx Differential Diagnosis: Asthma, Bronchitis, CHF, Myocardial infarction, Pneumonia, Respiratory Distress, URI X-Ray, Labs, Meds, VS Vital Signs Date Time Temp Pulse Resp B/P (MAP) Pulse Ox O2 Delivery O2 Flow Rate FiO2 01/15/25 22:30 98.2 99 20 214/126 95 98.2 Lab Test 01/15/25 23:43 01/15/25 23:05 Range/Units Lactic Acid Level 1.8 0.4-2.0 mmol/L White Blood Count 8.1 4.4-10.8 10^3/uL Red Blood Count 4.12 L 4.5-5.90 10^6/uL Hemoglobin 12.6 L 13.5-17.5 g/dL Hematocrit 36.6 L 41.0-53.0 % Mean Corpuscular Volume 89.0 80.0-100.0 fL Mean Corpuscular Hemoglobin 30.7 28.0-32.0 pg Mean Corpuscular Hemoglobin Concent 34.4 32.0-36.0 g/dL Red Cell Distribution Width 14.2 11.8-14.3 % Platelet Count 211 140-450 10^3/uL Mean Platelet Volume 7.5 6.9-10.8 fL Neutrophils (%) (Auto) 76.6 37.0-80.0 % Lymphocytes (%) (Auto) 13.4 10.0-50.0 % Monocytes (%) (Auto) 8.4 0.0-12.0 % Eosinophils (%) (Auto) 1.0 0.0-7.0 % Basophils (%) (Auto) 0.6 0.0-2.0 % Neutrophils # (Auto) 6.2 1.6-8.6 10 ^3/uL Lymphocytes # (Auto) 1.1 0.4-5.4 10 ^3/uL Monocytes # (Auto) 0.7 0-1.3 10 ^3/uL Eosinophils # (Auto) 0.1 0-0.8 10 ^3/uL Basophils # (Auto) 0 0-0.2 10 ^3/uL Nucleated Red Blood Cells 0.1 % Sodium Level 137 136-145 mmol/L Potassium Level 3.7 3.5-5.1 mmol/L Chloride Level 101 98-107 mmol/L Carbon Dioxide Level 26 20-31 mmol/L Anion Gap 10 5-15 Blood Urea Nitrogen 13 9-23 mg/dL Creatinine 0.86 0.700-1.30 mg/dL Glomerular Filtration Rate Calc 93 >90 mL/min BUN/Creatinine Ratio 15.1 10.0-20.0 Serum Glucose 218 H 74-106 mg/dL Calcium Level 9.0 8.7-10.4 mg/dL Total Bilirubin 0.3 0.2-1.0 mg/dL Aspartate Amino Transferase (AST) 23 13-40 U/L Alanine Aminotransferase (ALT) 28 7-40 U/L Alkaline Phosphatase 76 46-116 U/L Troponin I High Sensitivity 7 </=54 ng/L B-Type Natriuretic Peptide 68.48 0-100 pg/mL Total Protein 7.2 5.7-8.2 g/dL Albumin 4.0 3.2-4.8 g/dL Time of 1ST Reevaluation: 23:10 Reevaluation 1ST: Unchanged Patient Education/Counseling: Diagnosis, Treatment Family Education/Counseling: No Family Present SEPSIS Sepsis Screen Date sepsis recognized/suspect: Jan 15, 2025 Time Sepsis recognized/suspect: 2229 Recent Procedure: No On Antibiotic Therapy: No Respiratory Rate >20: No Heart Rate >90: No Temp<36 C (96.8 F) or >38.3 C: No SBP <90 or MAP <65 mmHG: No New Acute Mental Status Change: No Is the patient on CPAP, BIPAP,: No Physician Orders Chest Xray 1 View (01/15/25 23:00) Covid19 Antigen Felicita (01/15/25 ) Blood Culture (01/15/25 23:09) Hydralazine Hcl Tablet (Apresoline Table (01/16/25 01:15) Aspirin Tablet (01/16/25 01:15) Vital Signs Date Time Temp Pulse Resp B/P (MAP) Pulse Ox O2 Delivery O2 Flow Rate FiO2 01/15/25 22:30 98.2 99 20 214/126 95 98.2 Laboratory Tests Test 01/15/25 23:05 01/15/25 23:43 White Blood Count 8.1 10^3/uL (4.4-10.8) Lactic Acid Level 1.8 mmol/L (0.4-2.0) Departure 1 Departure Time of Disposition: 01:13 Impression: Primary Impression: ACS (acute coronary syndrome) Additional Impressions: Hypertensive urgency Venous stasis dermatitis Disposition: ADMITTED INPATIENT Admit to: Tele Condition: Guarded Discharged With: Self Critical Care Note Critical Care Time?: Yes (35 min-critical care time only) Critical care comment: Hypertensive urgency Stability Stability form required: No Heart Score Heart Score: Heart Score Response (Comments) Value History Moderate Suspicious 1 EKG Repolarization Disturb 1 Age >65 2 Risk Factors >3 or Hx ASHD 2 Troponin Normal limit 0 Total 6 I personally scribed for NURIA PARDO MD ([email or web address]) on 01/15/25 at 23:17. Electronically submitted by Gigi Barba ([email or web address]). NURIA PARDO MD Jan 15, 2025 23:17
[2025-01-15 23:29] LABS: Hematocrit 36.6 % (41.0-53.0); Hemoglobin 12.6 g/dL (13.5-17.5); Mean Corpuscular Hemoglobin 30.7 pg (28.0-32.0); Mean Corpuscular Volume 89.0 fL (80.0-100.0); Nucleated Red Blood Cells % 0.1 %
[2025-01-15 23:46] LABS: Alanine Aminotransferase 28 U/L (7-40); Albumin 4.0 g/dL (3.2-4.8); Alkaline Phosphatase 76 U/L (46-116); Anion Gap 10 (5-15); BUN/Creatinine Ratio 15.1 (10.0-20.0); Blood Urea Nitrogen 13 mg/dL (9-23); Calcium 9.0 mg/dL (8.7-10.4); Carbon Dioxide 26 mmol/L (20-31); Chloride 101 mmol/L (98-107); Potassium 3.7 mmol/L (3.5-5.1); Sodium 137 mmol/L (136-145); Total Protein 7.2 g/dL (5.7-8.2)
[2025-01-15 23:47] LABS: Bilirubin, Total 0.3 mg/dL (0.2-1.0); Glucose 218 mg/dL (74-106)
--- NOTE | 2025-01-16 00:26 | DVH ---
CHEST RADIOGRAPH Indication: SOB Technique: Single frontal view of the chest was obtained COMPARISON: XY CHEST PORTABLE on DOS: 12/13/23, XY CHEST PORTABLE on DOS: 12/01/22, XY CHEST XRAY 1 VIEW on DOS: 11/27/22, XY CHEST XRAY 1 VIEW on DOS: 11/19/22, CHEST PORTABLE on DOS: 08/18/20 FINDINGS: Lines and Tubes: None Lungs: Clear Pleura: No effusion. No pneumothorax. Cardiomediastinal contours: Cardiomegaly. Bones: Unremarkable IMPRESSION: 1. Cardiomegaly.
[2025-01-16 03:48] VITALS: BP 149/80; PULSE 82; RESP 20; TEMP 97.8; O2SAT 96
[2025-01-16] MEDS ORDERED: METF-372 PO (06:55)
[2025-01-16] MEDS ORDERED: LISI40TA16 PO (06:55)
[2025-01-16] MEDS ORDERED: GABA-1250 PO (06:55)
[2025-01-16] MEDS ORDERED: CARV6.2551 PO (06:55)
[2025-01-16] MEDS ORDERED: RISP0.5T45 PO (06:56)
== END 2025-01-16 07:16 | disposition left against medical advice (07) ==
LOC: EDBD 22:30 → ER 22:30
DX: I24.9 Acute ischemic heart disease, unspecified (principal); I16.0 Hypertensive urgency; I87.2 Venous insufficiency (chronic) (peripheral); I50.9 Heart failure, unspecified; E11.9 Type 2 diabetes mellitus without complications; Z90.89 Acquired absence of other organs; Z79.899 Other long term (current) drug therapy
CPT/HCPCS: 36415; 71045; 80053; 83605; 83880; 84484; 85025; 87040

== ENCOUNTER 2025-01-16 23:40 | Inpatient (IN) | payer MEDICARE, MEDICAID ==
[~2025-01-16] VITALS: Ht 167.6 cm; Wt 154.0 kg
[~2025-01-16 23:40] MED LIST changes: +CARV6.2551 PO; +LISI40TA16 PO; +METF-372 PO; +RISP0.5T45 PO
--- NOTE | 2025-01-17 00:06 | ED.PDOC ---
SOB-HPI HPI Comments 69-year-old male came to ER via EMS for bilateral lower extremity swelling. Patient does have history of hypertension, diabetes and congestive heart failure. Has been complaining of productive cough for the past 3 weeks, associated with shortness a breath, chest tightness, and worsening bipedal edema. Patient was seen here yesterday, to be admitted but left against medical advice. Patient coming in back again still with similar complaints Chief Complaint: Shortness of breath Time Seen by MD: 00:05 Primary Care Provider: UNKNOWN Reviewed notes: Nurses Notes Information Source: Patient Mode of Arrival: EMS Severity: Moderate Timing: Days Duration: Since onset Context: At Rest, With Light Exertion PE Risk Factors: None History of: CHF Past Medical History PAST MEDICAL HISTORY: Cancer, CHF, DM, High Lipids, HTN, [place] Surgical History: PTCA, Tonsillectomy Family History Family History: Reviewed,noncontributory to illness Social History Smoker: Non-Smoker Alcohol: Denies ETOH Use Drugs: Denies Drug Use Lives In: Home Constitutional: denies: chills, diaphoresis, fatigue, fever, malaise, sweats, weakness, others EENTM: denies: blurred vision, double vision, ear bleeding, ear discharge, ear drainage, ear pain, ear ringing, eye pain, eye redness, hearing loss, mouth pain, mouth swelling, nasal discharge, nose bleeding, nose congestion, nose pain, photophobia, tearing, throat pain, throat swelling, voice changes, others Respiratory: reports: SOB at rest, SOB with excertion; denies: cough, hemoptysis, orthopnea, shortness of breath, stridor, wheezing, others Cardiovascular: reports: edema; denies: chest pain, dizzy spells, diaphoresis, Dyspnea on exertion, irregular heart beat, left arm pain, lightheadedness, palpitations, PND, syncope, others Gastrointestinal: denies: abdomen distended, abdominal pain, blood streaked bowels, constipated, diarrhea, dysphagia, difficulty swallowing, hematemesis, melena, nausea, poor appetite, poor fluid intake, rectal bleeding, rectal pain, vomiting, others Genitourinary: denies: burning, dysuria, flank pain, frequency, hematuria, incontinence, penile discharge, penile sore, pain, testicle pain, testicle swelling, urgency, others Neurological: denies: dizziness, fainting, headache, left sided numbness, left sided weakness, numbness, paresthesia, pre-existing deficit, right sided num bness, right sided weakness, seizure, speech problems, tingling, tremors, weakness, others Musculoskeletal: denies: back pain, gout, joint pain, joint swelling, muscle pain, muscle stiffness, neck pain, others Integumetry: denies: bruises, change in color, change in hair/nails, dryness, laceration, lesions, lumps, rash, wounds, others Allergic/Immunocompromised: denies: Difficulty Healing, Frequent Infections, Hives, Itching, others Hematologic/Lymphatic: denies: anemia, blood clots, easy bleeding, easy bruising, swollen glands, others Endocrine: denies: excessive hunger, excessive sweating, excessive thirst, excessive urination, flushing, intolerance to cold, intolerance to heat, unexplained weight gain, unexplained weight loss, others Psychiatric: denies: anxiety, bipolar disorder, depression, hopeless, panic disorder, schizophrenia, sleepless, suicidal, others Physical Exam General Appearance: No Apparent Distress, Normal HEENT: Normal ENT Inspection, Pharynx Normal, TMs Normal Neck: Full Range of Motion, Non-Tender, Normal, Normal Inspection Respiratory: Chest Non-Tender, Lungs Clear, No Accessory Muscle Use, No Respiratory Distress, Normal Breath Sounds Cardiovascular: No Edema, No JVD, No Murmur, No Gallop, Normal Peripheral Pulses, Regular Rate/Rhythm Breast Exam: Deferred Gastrointestinal: No Organomegaly, Non Tender, No Pulsatile Mass, Normal Bowel Sounds, Soft Genitalia: Deferred Pelvic: Deferred Rectal: Deferred Extremities: No calf tenderness, Normal capillary refill, Normal inspection, Normal range of motion, Non-tender, No pedal edema Musculoskeletal : Apperance: Normal Neurologic: Alert, debt management counselor II-XII nml as Tested, No Motor Deficits, Normal Affect, Normal Mood, No Sensory Deficits Cerebellar Function: Normal Reflexes: Normal Skin: Dry, Normal Color, Warm Lymphatic: No Adenopathy Was a procedure done? Was a procedure done?: No Differential Dx Differential Diagnosis: Asthma, CHF, COPD, Myocardial infarction, Panic Attack, Pneumonia, Respiratory Distress X-Ray, Labs, Meds, VS Vital Signs Date Time Temp Pulse Resp B/P (MAP) Pulse Ox O2 Delivery O2 Flow Rate FiO2 01/16/25 23:40 98.4 89 18 183/77 94 98.4 Lab Test 01/17/25 02:46 01/17/25 00:45 Range/Units Lactic Acid Level Pending 2.1 *H 0.4-2.0 mmol/L White Blood Count 8.2 4.4-10.8 10^3/uL Red Blood Count 4.59 4.5-5.90 10^6/uL Hemoglobin 14.1 13.5-17.5 g/dL Hematocrit 40.9 #L 41.0-53.0 % Mean Corpuscular Volume 89.1 80.0-100.0 fL Mean Corpuscular Hemoglobin 30.7 28.0-32.0 pg Mean Corpuscular Hemoglobin Concent 34.4 32.0-36.0 g/dL Red Cell Distribution Width 13.8 11.8-14.3 % Platelet Count 215 140-450 10^3/uL Mean Platelet Volume 8.1 6.9-10.8 fL Neutrophils (%) (Auto) 69.7 37.0-80.0 % Lymphocytes (%) (Auto) 19.0 10.0-50.0 % Monocytes (%) (Auto) 8.8 0.0-12.0 % Eosinophils (%) (Auto) 1.7 0.0-7.0 % Basophils (%) (Auto) 0.8 0.0-2.0 % Neutrophils # (Auto) 5.7 1.6-8.6 10 ^3/uL Lymphocytes # (Auto) 1.6 0.4-5.4 10 ^3/uL Monocytes # (Auto) 0.7 0-1.3 10 ^3/uL Eosinophils # (Auto) 0.1 0-0.8 10 ^3/uL Basophils # (Auto) 0.1 0-0.2 10 ^3/uL Nucleated Red Blood Cells 0.1 % Prothrombin Time 11.4 9.3-11.8 sec Prothrombin Time INR 1.08 0.9-1.15 Activated Partial Thromboplast Time 38.4 H 24.5-34.5 SEC Sodium Level 138 136-145 mmol/L Potassium Level 4.1 3.5-5.1 mmol/L Chloride Level 101 98-107 mmol/L Carbon Dioxide Level 27 20-31 mmol/L Anion Gap 10 5-15 Blood Urea Nitrogen 17 9-23 mg/dL Creatinine 0.96 0.700-1.30 mg/dL Glomerular Filtration Rate Calc 85 >90 mL/min BUN/Creatinine Ratio 17.7 10.0-20.0 Serum Glucose 208 H 74-106 mg/dL Calcium Level 9.3 8.7-10.4 mg/dL Magnesium Level 1.9 1.6-2.6 mg/dL Total Bilirubin 0.3 0.2-1.0 mg/dL Aspartate Amino Transferase (AST) 23 13-40 U/L Alanine Aminotransferase (ALT) 31 7-40 U/L Alkaline Phosphatase 96 46-116 U/L Troponin I High Sensitivity 6 </=54 ng/L B-Type Natriuretic Peptide 49.10 0-100 pg/mL Total Protein 7.8 5.7-8.2 g/dL Albumin 4.4 3.2-4.8 g/dL Time of 1ST Reevaluation: 00:04 Reevaluation 1ST: Unchanged Patient Education/Counseling: Diagnosis, Treatment Family Education/Counseling: No Family Present SEPSIS Sepsis Screen Physician Orders Heplock Iv (01/16/25 23:58) Oxygen (01/16/25 23:58) Electrocardigram (01/16/25 23:58) Blood Culture (01/16/25 23:58) Covid19 Antigen Felicita (01/16/25 ) Vital Signs Date Time Temp Pulse Resp B/P (MAP) Pulse Ox O2 Delivery O2 Flow Rate FiO2 01/16/25 23:40 98.4 89 18 183/77 94 98.4 Laboratory Tests Test 01/17/25 00:45 01/17/25 02:46 Lactic Acid Level 2.1 mmol/L (0.4-2.0) *H Pending White Blood Count 8.2 10^3/uL (4.4-10.8) Departure 1 Departure Time of Disposition: 03:24 Impression: Primary Impression: Venous stasis dermatitis Additional Impressions: Morbid obesity Pulmonary hypertension Intermediate coronary syndrome Disposition: 09 ADMITTED INPATIENT Admit to: Med Surg Condition: Guarded Comments 69-year-old male with morbid obesity and shortness of breath at rest. Venous stasis dermatitis noted to both legs. Lab results reviewed. Chest x-ray reviewed. I suspect pulmonary hypertension. I suspect some diastolic congestive heart failure. Patient will need admission for supportive care and further workup. Critical Care Note Critical Care Time?: Yes (35 min-critical care time only) Critical care comment: Shortness of breath Stability Stability form required: No Heart Score Heart Score: Heart Score Response (Comments) Value History Moderate Suspicious 1 EKG Repolarization Disturb 1 Age >65 2 Risk Factors >3 or Hx ASHD 2 Troponin Normal limit 0 Total 6 I personally scribed for NURIA PARDO MD ([email or web address]) on 01/17/25 at 00:06. Electronically submitted by Gigi [facility]ba ([email or web address] NURIA PARDO MD Jan 17, 2025 00:06
[2025-01-17] MEDS: PROMETHAZINE-DM 5 ML ORAL SYRUP PO ONE (00:15)
[2025-01-17 01:12] LABS: INR 1.08 (0.9-1.15); Partial Thromboplastin Time 38.4 SEC (24.5-34.5); Prothrombin Time 11.4 sec (9.3-11.8)
[2025-01-17 01:22] LABS: Lactic Acid w/Reflex 2.1 mmol/L (0.4-2.0)
[2025-01-17 01:28] LABS: Hematocrit 40.9 % (41.0-53.0); Hemoglobin 14.1 g/dL (13.5-17.5); Mean Corpuscular Hemoglobin 30.7 pg (28.0-32.0); Mean Corpuscular Volume 89.1 fL (80.0-100.0); Nucleated Red Blood Cells % 0.1 %
[2025-01-17 01:33] LABS: Alanine Aminotransferase 31 U/L (7-40); Albumin 4.4 g/dL (3.2-4.8); Alkaline Phosphatase 96 U/L (46-116); Anion Gap 10 (5-15); BUN/Creatinine Ratio 17.7 (10.0-20.0); Blood Urea Nitrogen 17 mg/dL (9-23); Calcium 9.3 mg/dL (8.7-10.4); Carbon Dioxide 27 mmol/L (20-31); Chloride 101 mmol/L (98-107); Magnesium 1.9 mg/dL (1.6-2.6); Potassium 4.1 mmol/L (3.5-5.1); Sodium 138 mmol/L (136-145); Total Protein 7.8 g/dL (5.7-8.2)
[2025-01-17 01:34] LABS: Bilirubin, Total 0.3 mg/dL (0.2-1.0); Glucose 208 mg/dL (74-106)
[2025-01-17] MEDS: PROMETHAZINE-DM 5 ML ORAL SYRUP ONE (06:25)
[2025-01-17] MEDS ORDERED: hydrALAZINE HCL 20 MG/ML VL IV PRN (09:15)
[2025-01-17] MEDS ORDERED: ACETAMINOPHEN 325 MG TAB PO PRN (09:15)
--- NOTE | 2025-01-17 09:51 | DVHHP2 ---
History of Present Illness Reason for Visit: CHF exacerbation History of Present Illness This is a 69-year-old male with history of hypertension, hyperlipidemia, DM, MT, CHF, PTCA and cancer presents to ED via EMS with chief complaint of shortness of breath associated with bilateral lower extremity swelling. Upon evaluating deandre milan, found incontinent of urine with anasarca noted. He states that his generalized swelling has been uncontrollable for the last few days. The patient was seen here yesterday and left AMA. The patient blood pressure has found to be elevated on initial contact. He is here today due to his concern and would like to be further evaluated and treated. The patient will be admitted under hospitalist care to the telemetry unit for further monitoring. The patient denies fever, chills, headache, dizziness, palpitation, chest pain, nausea, vomiting, abdominal pain, diarrhea, constipation and other associated symptoms. The plan has been discussed with the patient in which all questions concerns have been addressed. Cardiovascular: CHF, HTN, MT, hyperipidemia Endocrine: Diabetes Past Medical History Cancer Past Surgical History: Tonsillectomy Past Surgical History PTCA Family History: None Smoke: No ALCOHOL: none Drugs: None Lives: Alone Domestic Violence: Neg Review of Systems Respiratory: Shortness of breath Allergies: Coded Allergies: NO KNOWN ALLERGIES (Unverified , 06/25/16) Medications Current Medications Medications Dose Ordered Sig/Rebel Route Start Time Stop Time Status Last Admin Dose Admin Furosemide 40 mg DAILY IV 01/18/25 10:00 Aspirin 81 mg DAILY PO 01/17/25 10:00 Enoxaparin Sodium 40 mg DAILY SC 01/17/25 10:00 Acetaminophen 650 mg Q6HP PRN PO 01/17/25 09:15 Hydralazine HCl 10 mg Q6HP PRN IV 01/17/25 09:15 Gabapentin 300 mg TID PO 01/17/25 14:00 Losartan Potassium 50 mg DAILY PO 01/17/25 10:00 UNV Carvedilol 6.25 mg BID PO 01/17/25 10:00 Lisinopril 40 mg DAILY PO 01/17/25 10:00 Nifedipine 60 mg DAILY PO 01/17/25 10:00 Exam Vital Signs Vital Signs Date Time Temp Pulse Resp B/P (MAP) Pulse Ox O2 Delivery O2 Flow Rate FiO2 01/17/25 04:08 80 20 93 Room Air 01/17/25 04:08 98.0 154/88 (110) 98.0 General Appearance: Alert, Oriented X3, Cooperative, No acute distress HEENT: Atraumatic, PERRLA Respiratory: Other (Crackles to bilateral lower lung dillard) Abdominal: Normal bowel sounds, No tenderness, No masses Extremities: No clubbing, No cyanosis Neuro: Normal speech, Normal tone, Other (Was in wheelchair) Psych/Mental Status: Mental status NL Labs/Xrays Labs Test 01/17/25 02:46 01/17/25 00:45 Range/Units Lactic Acid Level 2.0 0.4-2.0 mmol/L White Blood Count 8.2 4.4-10.8 10^3/uL Red Blood Count 4.59 4.5-5.90 10^6/uL Hemoglobin 14.1 13.5-17.5 g/dL Hematocrit 40.9 #L 41.0-53.0 % Mean Corpuscular Volume 89.1 80.0-100.0 fL Mean Corpuscular Hemoglobin 30.7 28.0-32.0 pg Mean Corpuscular Hemoglobin Concent 34.4 32.0-36.0 g/dL Red Cell Distribution Width 13.8 11.8-14.3 % Platelet Count 215 140-450 10^3/uL Mean Platelet Volume 8.1 6.9-10.8 fL Neutrophils (%) (Auto) 69.7 37.0-80.0 % Lymphocytes (%) (Auto) 19.0 10.0-50.0 % Monocytes (%) (Auto) 8.8 0.0-12.0 % Eosinophils (%) (Auto) 1.7 0.0-7.0 % Basophils (%) (Auto) 0.8 0.0-2.0 % Neutrophils # (Auto) 5.7 1.6-8.6 10 ^3/uL Lymphocytes # (Auto) 1.6 0.4-5.4 10 ^3/uL Monocytes # (Auto) 0.7 0-1.3 10 ^3/uL Eosinophils # (Auto) 0.1 0-0.8 10 ^3/uL Basophils # (Auto) 0.1 0-0.2 10 ^3/uL Nucleated Red Blood Cells 0.1 % Prothrombin Time 11.4 9.3-11.8 sec Prothrombin Time INR 1.08 0.9-1.15 Activated Partial Thromboplast Time 38.4 H 24.5-34.5 SEC Sodium Level 138 136-145 mmol/L Potassium Level 4.1 3.5-5.1 mmol/L Chloride Level 101 98-107 mmol/L Carbon Dioxide Level 27 20-31 mmol/L Anion Gap 10 5-15 Blood Urea Nitrogen 17 9-23 mg/dL Creatinine 0.96 0.700-1.30 mg/dL Glomerular Filtration Rate Calc 85 >90 mL/min BUN/Creatinine Ratio 17.7 10.0-20.0 Serum Glucose 208 H 74-106 mg/dL Calcium Level 9.3 8.7-10.4 mg/dL Magnesium Level 1.9 1.6-2.6 mg/dL Total Bilirubin 0.3 0.2-1.0 mg/dL Aspartate Amino Transferase (AST) 23 13-40 U/L Alanine Aminotransferase (ALT) 31 7-40 U/L Alkaline Phosphatase 96 46-116 U/L Troponin I High Sensitivity 6 </=54 ng/L B-Type Natriuretic Peptide 49.10 0-100 pg/mL Total Protein 7.8 5.7-8.2 g/dL Albumin 4.4 3.2-4.8 g/dL ORDERING PHYSICIAN: NURIA PARDO MD PROCEDURE(s): CXR1 - CHEST XRAY 1 VIEW REASON: SOB ORDER NUMBER(s): [id number], ACCESSION NUMBER(s): [id number] CHEST RADIOGRAPH Indication: SOB Technique: Single frontal view of the chest was obtained COMPARISON: XY CHEST PORTABLE on DOS: 12/13/23, XY CHEST PORTABLE on DOS: 12/01/22, XY CHEST XRAY 1 VIEW on DOS: 11/27/22, XY CHEST XRAY 1 VIEW on DOS: 11/19/22, CHEST PORTABLE on DOS: 08/18/20 FINDINGS: Lines and Tubes: None Lungs: Clear Pleura: No effusion. No pneumothorax. Cardiomediastinal contours: Cardiomegaly. Bones: Unremarkable IMPRESSION: 1. Cardiomegaly. IS Sepsis Screen Date sepsis recognized/suspect: Jan 17, 2025 Time Sepsis recognized/suspect: 407 Recent Procedure: No On Antibiotic Therapy: No Respiratory Rate >20: No Heart Rate >90: No Temp<36 C (96.8 F) or >38.3 C: No SBP <90 or MAP <65 mmHG: No New Acute Mental Status Change: No Is the patient on CPAP, BIPAP,: No Physician Orders Aspirin Tablet (01/17/25 10:00) 2 Gm Sodium Diet (01/17/25 Breakfast) Enoxaparin Sodium (Lovenox) (01/17/25 10:00) Complete Blood Count (01/18/25 04:00) Comprehensive Metabolic Panel (01/18/25 04:00) Echo 2d Mode Cardiac Dop (01/17/25 09:11) Condition: Fair (01/17/25 09:11) Acetaminophen Tablet (Tylenol Tablet) (01/17/25 09:15) Bedrest With Bathroom Privileg (01/17/25 09:11) Admit (01/17/25 09:13) Hydralazine Injection (Apresoline Inject (01/17/25 09:15) Gabapentin Capsule (Neurontin Capsule) (01/17/25 14:00) Losartan Tablet (Cozaar Tablet) (01/17/25 10:00) Carvedilol Tablet (Coreg Tablet) (01/17/25 10:00) Lisinopril Tablet (Zestril Tablet) (01/17/25 10:00) Nifedipine Er (Procardia Xl (Time-Releas (01/17/25 10:00) Furosemide Injection (Lasix Injection) (01/18/25 10:00) Vital Signs Date Time Temp Pulse Resp B/P (MAP) Pulse Ox O2 Delivery O2 Flow Rate FiO2 01/17/25 04:08 80 20 93 Room Air 01/17/25 04:08 98.0 80 18 154/88 (110) 92 98.0 Laboratory Tests Test 01/17/25 00:45 01/17/25 02:46 Lactic Acid Level 2.1 mmol/L (0.4-2.0) *H 2.0 mmol/L (0.4-2.0) White Blood Count 8.2 10^3/uL (4.4-10.8) Medications Medications Dose Ordered Sig/Rebel Route Start Time Stop Time Status Last Admin Dose Admin Aspirin 81 mg ONCE ONCE PO 01/17/25 03:30 01/17/25 03:31 DC 01/17/25 06:24 81 MG Promethazine HCl/ Dextromethorphan 5 ml ONCE ONCE PO 01/17/25 00:15 01/17/25 00:16 DC 01/17/25 00:15 5 ML Reassessment Post Fluid Pulse Location: Radial Pulse Strength: Normal Capillary Refill Exam: < 3 seconds Skin Temperature: Warm Skin Moisture: Dry Skin Color: WNL Fingernail Color: WNL Assessment/Plan Assessment/Plan CHF exacerbation---patient presents to ED via EMS for shortness of breath associated with bilateral lower extremity swelling Left AMA yesterday History of CHF, PTCA, MT, DM, hypertension, hyperlipidemia Initial BP elevated to 214/126 Admit to telemetry unit for continuous monitoring ACS protocol if needed Reviewed CBC shows elevated hematocrit 40.9 Lactic acid 2.0 BNP 49 Troponin negative x1 BMP normal Chest x-ray shows cardiomegaly IV Lasix now and daily Albuterol q.2h p.r.n. shortness of breath Echocardiogram pending ?DVT Bilateral lower extremity swelling and shortness of Breath is present Doppler study bilateral lower extremity pending Uncontrolled hypertension Continue antihypertensive agents as prescribed Hydralazine 10 mg IV push q.6 p.r.n. SBP greater than 150 mmHg Hyperlipidemia Continue statin Type 2 DM Diabetic diet Regular insulin mild SS a.c. and HS Accu-Cheks per protocol Reconcile home med DVT prophylaxis PUD prophylaxis not indicated no history of GERD Labs in a.m. Discussed plan of care with the patient in which all questions concerns have been addressed Plan discussed with: Patient My Orders Orders - SOLITARIO KYLE CLERK CARRIER Procedure Category Date Status Time Aspirin Tablet PHA 01/17/25 In Process 10:00 2 Gm Sodium Diet DIET 01/17/25 Transmitted Breakfast Enoxaparin Sodium PHA 01/17/25 In Process (Lovenox) 10:00 Complete Blood Count LAB 01/18/25 Verified 04:00 Comprehensive LAB 01/18/25 Verified Metabolic Panel 04:00 Echo 2d Mode Cardiac US 01/17/25 Logged DOP 09:11 Condition: Fair CAROLEE 01/17/25 In Process 09:11 Acetaminophen Tablet PHA 01/17/25 In Process (Tylenol Tablet) 09:15 Bedrest With Bathroom CAROLEE 01/17/25 In Process Privileg 09:11 Admit ADMIT 01/17/25 Transmitted 09:13 Hydralazine Injection PHA 01/17/25 In Process (Apresoline Inject 09:15 Gabapentin Capsule PHA 01/17/25 In Process (Neurontin Capsule) 14:00 Losartan Tablet PHA 01/17/25 Logged (Cozaar Tablet) 10:00 Carvedilol Tablet PHA 01/17/25 In Process (Coreg Tablet) 10:00 Lisinopril Tablet PHA 01/17/25 In Process (Zestril Tablet) 10:00 Nifedipine Er PHA 01/17/25 In Process (Procardia Xl 10:00 Furosemide Injection PHA 01/18/25 Logged (Lasix Injection) 10:00 Date of Service: Jan 17, 2025 Billing Provider: SOLITARIO KYLE Common Visit Codes: [id number] INP/OBS CARE (HIGH) SOLITARIO KYLE Jan 17, 2025 09:51
[2025-01-17 09:52] VITALS: BP 170/98; PULSE 84; RESP 20; O2SAT 99
[2025-01-17 09:59] VITALS: O2SAT 97
[2025-01-17 10:00] VITALS: BP 170/98; PULSE 79; RESP 22; TEMP 97.9; O2SAT 99
[2025-01-17] MEDS ORDERED: ALBUTEROL SULF 2.5 MG/0.5ML(0.5%) NEB SOLN NEB PRN (10:00)
[2025-01-17] MEDS ORDERED: LOSARTAN POTASSIUM 50 MG TAB PO SCH (10:00)
[2025-01-17] MEDS ORDERED: DEXTROSE (50%) 50ML SYRG IV PRN (10:00)
[2025-01-17] MEDS: FUROSEMIDE 40 MG/4 ML VIAL IV ONE (10:44)
[2025-01-17] MEDS: ENOXAPARIN SOD 40 MG/0.4 ML SYRINGE SC SCH (10:45)
[2025-01-17] MEDS: LISINOPRIL 20 MG TAB PO SCH (10:46)
[2025-01-17] MEDS: CARVEDILOL 3.125 MG TAB PO SCH (10:47)
[2025-01-17] MEDS: ACCU-CHEK COMFORT CURVE STRIP VI SCH (11:30)
[2025-01-17 12:00] VITALS: BP 143/68; PULSE 83; RESP 23; TEMP 98.7; O2SAT 90
[2025-01-17] MEDS: InsuLIN REG 1unit/0.01ml Soln (100units/ml) SC SCH (12:05)
--- NOTE | 2025-01-17 12:06 | DVH ---
Bilateral lower extremity venous duplex Clinical History: r/o dvt Comparison: US BILAT LOWER DVT on DOS: 11/20/22, BI LOWER DVT on DOS: 08/18/20, VENOUS DVT BILAT on DOS : 06/16/20 Technique: Duplex Doppler evaluation of the deep venous systems of both lower extremities from the common femora l veins to the popliteal veins including color Doppler and spectral/pulsed waveform analysis was perf ormed. Findings/Impression: 1. Limited examination due to body habitus. 2. Right popliteal vein and left posterior tibial veins are not well visualized on this exam. 3. Otherwise no acute occlusive deep vein thrombosis within the visualized bilateral lower extremitie s.
[2025-01-17 12:19] VITALS: BP 170/98; PULSE 80; RESP 20; TEMP 98; O2SAT 97
[2025-01-17 13:11] LABS: COVID19 ANTIGEN SOFIA FIA NEGATIVE (NEGATIVE)
[2025-01-17] MEDS ORDERED: GABAPENTIN 300 MG CAP PO SCH (14:00)
[2025-01-18] MEDS ORDERED: FUROSEMIDE 40 MG/4 ML VIAL IV SCH (10:00)
== END 2025-01-17 14:30 | disposition left against medical advice (07) | DRG 292 ==
LOC: ER 23:40 → EDUNIT# 23:40 → EDBD 23:40 → OVERFLOW 01-17 09:13
PROVIDERS: ADMIT Nurse Practitioner Family; ATTEND Nurse Practitioner Family
DX: I11.0 Hypertensive heart disease with heart failure (principal); Z68.43 Body mass index [BMI] 50.0-59.9, adult; I20.0 Unstable angina; I50.9 Heart failure, unspecified; E11.9 Type 2 diabetes mellitus without complications; E66.01 Morbid (severe) obesity due to excess calories; Z20.822 Contact with and (suspected) exposure to COVID-19; E78.5 Hyperlipidemia, unspecified; Z53.29 Procedure and treatment not carried out because of patient's decision for other reasons; I27.20 Pulmonary hypertension, unspecified; I87.2 Venous insufficiency (chronic) (peripheral); I25.2 Old myocardial infarction; Z98.61 Coronary angioplasty status
CPT/HCPCS: 36415; 71045; 80053; 82962; 83605; 83735; 83880; 84484; 85025; 85610; 85730; 87040; 87426; 93970; 96374; 99291; G0378; J1815

== ENCOUNTER 2025-01-18 01:25 | Inpatient (IN) | payer MEDICARE, MEDICAID ==
[~2025-01-18] VITALS: Ht 167.6 cm; Wt 164.2 kg
[~2025-01-18 01:25] MED LIST changes: -ATOR20TA50 PO; -CEPH250C PO; -DOCU-265 PO; -FURO1TAB33 GT; -LISI10TA34 PO; -METF-370 PO; -METF-371 PO
--- NOTE | 2025-01-18 02:00 | ED.PDOC ---
HPI Comments 69-year-old male came to ER via EMS for chest pains. Patient coming in for the 3rd consecutive night for chest pains/shortness of breath, CHF exacerbation. Was actually admitted twice but signed AMA twice. 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 Allergies: Coded Allergies: NO KNOWN ALLERGIES (Unverified , 06/25/16) Home Meds Active Scripts Potassium Chloride (Klor-Con 10) 10 Meq Tab, 10 MEQ PO DAILY for 30 Days, #30 TAB 3 Refills Prov:GOVIND CHRISTIANSON MD 11/22/22 Spironolactone (Aldactone) 25 Mg Tab, 25 MG PO DAILY for 30 Days, #30 TAB 3 Refills Prov:GOVIND CHRISTIANSON MD 11/22/22 Aspirin (Aspirin Low Dose) 81 Mg Tab, 81 MG PO DAILY for 30 Days, #30 TAB 3 Refills Prov:GOVIND CHRISTIANSON MD 11/22/22 Furosemide (Lasix) 40 Mg Tab, 40 MG PO QAM for 30 Days, #30 TAB 3 Refills Prov:GOVIND CHRISTIANSON MD 11/22/22 Reported Medications Risperidone (Risperidone) 0.5 Mg Tab, 2 TAB PO BID 01/16/25 Gabapentin (Gabapentin) 300 Mg Cap, 1 CAP PO TID, #90 CAP 5 Refills 01/16/25 Lisinopril (Lisinopril) 40 Mg Tab, 1 TAB PO DAILY 01/16/25 Carvedilol (Carvedilol) 6.25 Mg Tab, 1 TAB PO BID 01/16/25 Metformin Hydrochloride (Metformin Hcl) 1,000 Mg Tab, 1 TAB PO BID 01/16/25 Atorvastatin Calcium (ATORVASTATIN CALCIUM) 40 Mg Tab, 1 TAB PO 11/21/22 Nifedipine (Nifedipine Er) 60 Mg Tab, 60 MG PO DAILY 11/20/22 Losartan Potassium (Losartan Potassium) 50 Mg Tab, 1 TAB PO DAILY 11/20/22 Discontinued Reported Medications Gabapentin (Gabapentin) Unknown Strength Cap, PO, CAP 06/17/20 Metformin Hydrochloride (Metformin Hcl) Unknown Strength Tab, PO, TAB 06/17/20 Furosemide (Lasix) Unknown Strength Tb, GT, TAB 06/17/20 Discontinued Scripts Metformin Hydrochloride (Metformin Hcl) 850 Mg Tab, 850 MG PO BID for 30 Days, #60 TAB 3 Refills Prov:GOVIND CHRISTIANSON MD 11/22/22 Lisinopril (Lisinopril) 10 Mg Tab, 20 MG PO DAILY for 30 Days, #60 TAB 3 Refills Prov:GOVIND CHRISTIANSON MD 11/22/22 Docusate Sodium (Docusate Sodium) 100 Mg Cap, 100 MG PO BIDPRN PRN for 30 Days, #40 CAP Prov:GOVIND CHRISTIANSON MD 11/22/22 Cephalexin (KEFLEX CAPSULE) 250 Mg Cp, 500 MG PO TID for 7 Days, #21 CAP Prov:GOVIND CHRISTIANSON MD 11/22/22 Atorvastatin Calcium (ATORVASTATIN CALCIUM) 20 Mg Tab, 20 MG PO HS for 30 Days, #30 TAB 2 Refills Prov:GOVIND CHRISTIANSON MD 11/22/22 Information Source: Patient, Emergency Med Personnel Mode of Arrival: EMS Severity: Moderate Timing: Hours Duration: Since onset Location: Substernal Quality: Aching, Tightness Onset: With Light Exertion Cardiac Risk Factors: HTN, Other (CHF) Associated Signs and Symptoms: SOB Past Medical History PAST MEDICAL HISTORY: Cancer, CHF, DM, High Lipids, HTN, [place] Surgical History: PTCA, Tonsillectomy Family History Family History: Reviewed,noncontributory to illness Social History Smoker: Non-Smoker Alcohol: Denies ETOH Use Drugs: Denies Drug Use Lives In: Home Constitutional: denies: chills, diaphoresis, fatigue, fever, malaise, sweats, weakness, others EENTM: denies: blurred vision, double vision, ear bleeding, ear discharge, ear drainage, ear pain, ear ringing, eye pain, eye redness, hearing loss, mouth pain, mouth swelling, nasal discharge, nose bleeding, nose congestion, nose pain, photophobia, tearing, throat pain, throat swelling, voice changes, others Respiratory: reports: SOB at rest, shortness of breath, SOB with excertion; denies: cough, hemoptysis, orthopnea, stridor, wheezing, others Cardiovascular: reports: chest pain, edema; denies: dizzy spells, diaphoresis, Dyspnea on exertion, irregular heart beat, left arm pain, lightheadedness, palpitations, PND, syncope, others Gastrointestinal: denies: abdomen distended, abdominal pain, blood streaked bowels, constipated, diarrhea, dysphagia, difficulty swallowing, hematemesis, melena, nausea, poor appetite, poor fluid intake, rectal bleeding, rectal pain, vomiting, others Genitourinary: denies: burning, dysuria, flank pain, frequency, hematuria, incontinence, penile discharge, penile sore, pain, testicle pain, testicle swelling, urgency, others Neurological: denies: dizziness, fainting, headache, left sided numbness, left sided weakness, numbness, paresthesia, pre-existing deficit, right sided numbness, right sided weakness, seizure, speech problems, tingling, tremors, weakness, others Musculoskeletal: denies: back pain, gout, joint pain, joint swelling, muscle pain, muscle stiffness, neck pain, others Integumetry: denies: bruises, change in color, change in hair/nails, dryness, laceration, lesions, lumps, rash, wounds, others Allergic/Immunocompromised: denies: Difficulty Healing, Frequent Infections, Hives, Itching, others Hematologic/Lymphatic: denies: anemia, blood clots, easy bleeding, easy bruising, swollen glands, others Endocrine: denies: excessive hunger, excessive sweating, excessive thirst, excessive urination, flushing, intolerance to cold, intolerance to heat, unexpl ained weight gain, unexplained weight loss, others Psychiatric: denies: anxiety, bipolar disorder, depression, hopeless, panic disorder, schizophrenia, sleepless, suicidal, others Physical Exam General Appearance: No Apparent Distress, Normal HEENT: Normal ENT Inspection, Pharynx Normal, TMs Normal Neck: Full Range of Motion, Non-Tender, Normal, Normal Inspection Respiratory: Chest Non-Tender, Lungs Clear, No Accessory Muscle Use, No Respiratory Distress, Normal Breath Sounds Cardiovascular: No Edema, No JVD, No Murmur, No Gallop, Normal Peripheral Pulses, Regular Rate/Rhythm Breast Exam: Deferred Gastrointestinal: No Organomegaly, Non Tender, No Pulsatile Mass, Normal Bowel Sounds, Soft Genitalia: Deferred Pelvic: Deferred Rectal: Deferred Extremities: No calf tenderness, Normal capillary refill, Normal inspection, Normal range of motion, Non-tender, No pedal edema Musculoskeletal : Apperance: Normal Neurologic: Alert, stone planer II-XII nml as Tested, No Motor Deficits, Normal Affect, Normal Mood, No Sensory Deficits Cerebellar Function: Normal Reflexes: Normal Skin: Dry, Normal Color, Warm Lymphatic: No Adenopathy Was a procedure done? Was a procedure done?: No CP Differential Dx Differential Diagnosis: Angina, Anxiety / Panic Attack Differential Diagnosis: CHF Differential Diagnosis: Angina, Chest Wall Pain, Costochondritis, Esophageal reflux/spasm, Gastritis, Myocardial Infarction, Pneumonia X-Ray, Labs, Meds, VS Vital Signs Date Time Temp Pulse Resp B/P (MAP) Pulse Ox O2 Delivery O2 Flow Rate FiO2 01/18/25 01:44 77 01/18/25 01:25 98.1 80 18 150/63 95 98.1 Lab Test 01/18/25 02:44 Range/Units White Blood Count 7.1 4.4-10.8 10^3/uL Red Blood Count 4.14 L 4.5-5.90 10^6/uL Hemoglobin 12.8 L 13.5-17.5 g/dL Hematocrit 37.1 L 41.0-53.0 % Mean Corpuscular Volume 89.6 80.0-100.0 fL Mean Corpuscular Hemoglobin 30.9 28.0-32.0 pg Mean Corpuscular Hemoglobin Concent 34.4 32.0-36.0 g/dL Red Cell Distribution Width 14.3 11.8-14.3 % Platelet Count 199 140-450 10^3/uL Mean Platelet Volume 7.9 6.9-10.8 fL Neutrophils (%) (Auto) 70.2 37.0-80.0 % Lymphocytes (%) (Auto) 17.1 10.0-50.0 % Monocytes (%) (Auto) 9.4 0.0-12.0 % Eosinophils (%) (Auto) 2.6 0.0-7.0 % Basophils (%) (Auto) 0.7 0.0-2.0 % Neutrophils # (Auto) 5.0 1.6-8.6 10 ^3/uL Lymphocytes # (Auto) 1.2 0.4-5.4 10 ^3/uL Monocytes # (Auto) 0.7 0-1.3 10 ^3/uL Eosinophils # (Auto) 0.2 0-0.8 10 ^3/uL Basophils # (Auto) 0 0-0.2 10 ^3/uL Nucleated Red Blood Cells 0.0 % Prothrombin Time 11.2 9.3-11.8 sec Prothrombin Time INR 1.06 0.9-1.15 Activated Partial Thromboplast Time 37.0 H 24.5-34.5 SEC Sodium Level 136 136-145 mmol/L Potassium Level 4.2 3.5-5.1 mmol/L Chloride Level 98 98-107 mmol/L Carbon Dioxide Level 29 20-31 mmol/L Anion Gap 9 5-15 Blood Urea Nitrogen 17 9-23 mg/dL Creatinine 1.07 0.700-1.30 mg/dL Glomerular Filtration Rate Calc 75 >90 mL/min BUN/Creatinine Ratio 15.9 10.0-20.0 Serum Glucose 217 H 74-106 mg/dL Calcium Level 9.0 8.7-10.4 mg/dL Total Bilirubin 0.4 0.2-1.0 mg/dL Aspartate Amino Transferase (AST) 25 13-40 U/L Alanine Aminotransferase (ALT) 36 7-40 U/L Alkaline Phosphatase 90 46-116 U/L Troponin I High Sensitivity < 3 L </=54 ng/L B-Type Natriuretic Peptide Pending Total Protein 7.6 5.7-8.2 g/dL Albumin 4.3 3.2-4.8 g/dL Time of 1ST Reevaluation: 01:57 Reevaluation 1ST: Unchanged Patient Education/Counseling: Diagnosis, Treatment Family Education/Counseling: No Family Present SEPSIS Sepsis Screen Date sepsis recognized/suspect: Jan 18, 2025 Time Sepsis recognized/suspect: 124 Recent Procedure: No On Antibiotic Therapy: No Respiratory Rate >20: No Heart Rate >90: No Temp<36 C (96.8 F) or >38.3 C: No SBP <90 or MAP <65 mmHG: No New Acute Mental Status Change: No Is the patient on CPAP, BIPAP,: No Physician Orders Chest Portable (01/18/25 01:45) B-Type Natriuretic Peptide (01/18/25 01:45) Electrocardigram (01/18/25 01:45) Vital Signs Date Time Temp Pulse Resp B/P (MAP) Pulse Ox O2 Delivery O2 Flow Rate FiO2 01/18/25 01:44 77 01/18/25 01:25 98.1 80 18 150/63 95 98.1 Laboratory Tests Test 01/18/25 02:44 White Blood Count 7.1 10^3/uL (4.4-10.8) Departure 1 Departure Time of Disposition: 04:36 Impression: Primary Impression: Intermediate coronary syndrome Additional Impressions: Diabetes mellitus with hyperglycemia Pulmonary hypertension Venous stasis dermatitis Disposition: ADMITTED INPATIENT Admit to: Tele Condition: Guarded Comments 69-year-old male with morbid obesity now with shortness of breath when he lays d own at night. Chest x-ray shows no acute pathology. Patient has venous stasis dermatitis. I suspect diastolic congestive heart failure and pulmonary hypertension. Also intermediate coronary syndrome. Patient will need to be admitted for supportive care and further workup. Critical Care Note Critical Care Time?: No Stability Stability form required: No Heart Score Heart Score: Heart Score Response (Comments) Value History Moderate Suspicious 1 EKG Repolarization Disturb 1 Age >65 2 Risk Factors >3 or Hx ASHD 2 Troponin Normal limit 0 Total 6 I personally scribed for NURIA PARDO MD ([email or web address]) on 01/18/25 at 02:00. Electronically submitted by Gigi Barba ([email or web address]). NURIA PARDO MD Jan 18, 2025 02:00
[2025-01-18 03:28] LABS: Hematocrit 37.1 % (41.0-53.0); Hemoglobin 12.8 g/dL (13.5-17.5); Mean Corpuscular Hemoglobin 30.9 pg (28.0-32.0); Mean Corpuscular Volume 89.6 fL (80.0-100.0); Nucleated Red Blood Cells % 0.0 %
--- NOTE | 2025-01-18 03:38 | DVH ---
CHEST RADIOGRAPH Indication: sob Technique: Single frontal view of the chest was obtained COMPARISON: XY CHEST XRAY 1 VIEW on DOS: 01/15/25, XY CHEST PORTABLE on DOS: 12/13/23, XY CHEST PORTABLE on DOS: 12/01/22, XY CHEST XRAY 1 VIEW on DOS: 11/27/22, XY CHEST XRAY 1 VIEW on DOS: 11/19/22 FINDINGS: Lines and Tubes: None Lungs: Clear Pleura: No effusion. No pneumothorax. Cardiomediastinal contours: Unchanged Bones: Unremarkable IMPRESSION: 1. No acute disease.
[2025-01-18 03:47] LABS: Alanine Aminotransferase 36 U/L (7-40); Albumin 4.3 g/dL (3.2-4.8); Alkaline Phosphatase 90 U/L (46-116); Anion Gap 9 (5-15); BUN/Creatinine Ratio 15.9 (10.0-20.0); Bilirubin, Total 0.4 mg/dL (0.2-1.0); Blood Urea Nitrogen 17 mg/dL (9-23); Calcium 9.0 mg/dL (8.7-10.4); Carbon Dioxide 29 mmol/L (20-31); Potassium 4.2 mmol/L (3.5-5.1); Sodium 136 mmol/L (136-145); Total Protein 7.6 g/dL (5.7-8.2)
[2025-01-18 03:58] LABS: INR 1.06 (0.9-1.15); Partial Thromboplastin Time 37.0 SEC (24.5-34.5); Prothrombin Time 11.2 sec (9.3-11.8)
[2025-01-18 04:06] LABS: Chloride 98 mmol/L (98-107); Glucose 217 mg/dL (74-106)
[2025-01-18] MEDS ORDERED: FUROSEMIDE 40 MG/4 ML VIAL IV ONE (04:45)
[2025-01-18] MEDS ORDERED: NITROGLYCERIN 0.4 MG SL TAB SL PRN (06:45)
[2025-01-18] MEDS ORDERED: MORPHINE SULFATE INJ 2 MG/ml SYRG IV PRN (06:45)
[2025-01-18] MEDS ORDERED: ACETAMINOPHEN 325 MG TAB PO PRN (06:45)
--- NOTE | 2025-01-18 07:05 | DVHHPRES ---
History of Present Illness Resident Creating Document: RONY CHILDERS RESIDENT Reason for Visit: CHF exacerbation History of Present Illness This is a 69-year-old male with history of hypertension, hyperlipidemia, DM, DC, CHF, PTCA and cancer presents to ED via EMS with chief complaint of chest pain. Patient is complaining of chest pain, 6/10, nonradiating. Patient was also complaining of shortness of breathe, cough and worsening bipedal edema. The patient denies fever, chills, headache, dizziness, palpitation, nausea, vomiting, abdominal pain, diarrhea, constipation and other associated symptoms. Past Medical History hypertension, hyperlipidemia, DM, DC, CHF, PTCA Smoke: No ALCOHOL: none Drugs: None Review of Systems Review of Systems CONSTITUTIONAL: Denies weight loss, fever and chills. HEENT: Denies changes in vision and hearing. RESPIRATORY: Admits SOB and cough. CV: Admits chest pain. GI: Denies abdominal pain, nausea, vomiting and diarrhea. : Denies dysuria and urinary frequency. MSK: Denies myalgia and joint pain. SKIN: Denies rash and pruritus. NEUROLOGICAL: Denies headache Allergies: Coded Allergies: NO KNOWN ALLERGIES (Unverified , 06/25/16) Medications Current Medications Medications Dose Ordered Sig/Rebel Route Start Time Stop Time Status Last Admin Dose Admin Sodium Chloride 10 ml Q8HR IV 01/18/25 14:00 Enoxaparin Sodium 40 mg DAILY SC 01/18/25 10:00 Acetaminophen 650 mg Q6HP PRN PO 01/18/25 06:45 Morphine Sulfate 2 mg Q4HPRN PRN IV 01/18/25 06:45 Nitroglycerin 0.4 mg Q5MINP PRN SL 01/18/25 06:45 Morphine Sulfate 2 mg Q30M PRN IV 01/18/25 06:45 Aspirin 81 mg DAILY PO 01/18/25 10:00 Furosemide 40 mg DAILY IV 01/18/25 10:00 Exam Vital Signs Vital Signs Date Time Temp Pulse Resp B/P (MAP) Pulse Ox O2 Delivery O2 Flow Rate FiO2 01/18/25 01:44 77 01/18/25 01:25 98.1 18 150/63 95 98.1 Exam GENERAL: Not in acute distress. HEENT: EOMI, Moist mucous membranes. No scleral icterus. No cervical lymphadenopathy. LUNGS: Bilateral crackles on auscultation. No accessory muscle use. CARDIOVASCULAR: Regular rate and rhythm. No murmur. No JVD. ABDOMEN: Soft, nontender and nondistended. No palpable masses. EXTREMITIES: No edema. Nontender. SKIN: No rashes or lesions. Warm. NEUROLOGIC: Alert and oriented X3 Labs/Xrays Labs Test 01/18/25 02:44 Range/Units White Blood Count 7.1 4.4-10.8 10^3/uL Red Blood Count 4.14 L 4.5-5.90 10^6/uL Hemoglobin 12.8 L 13.5-17.5 g/dL Hematocrit 37.1 L 41.0-53.0 % Mean Corpuscular Volume 89.6 80.0-100.0 fL Mean Corpuscular Hemoglobin 30.9 28.0-32.0 pg Mean Corpuscular Hemoglobin Concent 34.4 32.0-36.0 g/dL Red Cell Distribution Width 14.3 11.8-14.3 % Platelet Count 199 140-450 10^3/uL Mean Platelet Volume 7.9 6.9-10.8 fL Neutrophils (%) (Auto) 70.2 37.0-80.0 % Lymphocytes (%) (Auto) 17.1 10.0-50.0 % Monocytes (%) (Auto) 9.4 0.0-12.0 % Eosinophils (%) (Auto) 2.6 0.0-7.0 % Basophils (%) (Auto) 0.7 0.0-2.0 % Neutrophils # (Auto) 5.0 1.6-8.6 10 ^3/uL Lymphocytes # (Auto) 1.2 0.4-5.4 10 ^3/uL Monocytes # (Auto) 0.7 0-1.3 10 ^3/uL Eosinophils # (Auto) 0.2 0-0.8 10 ^3/uL Basophils # (Auto) 0 0-0.2 10 ^3/uL Nucleated Red Blood Cells 0.0 % Prothrombin Time 11.2 9.3-11.8 sec Prothrombin Time INR 1.06 0.9-1.15 Activated Partial Thromboplast Time 37.0 H 24.5-34.5 SEC Sodium Level 136 136-145 mmol/L Potassium Level 4.2 3.5-5.1 mmol/L Chloride Level 98 98-107 mmol/L Carbon Dioxide Level 29 20-31 mmol/L Anion Gap 9 5-15 Blood Urea Nitrogen 17 9-23 mg/dL Creatinine 1.07 0.700-1.30 mg/dL Glomerular Filtration Rate Calc 75 >90 mL/min BUN/Creatinine Ratio 15.9 10.0-20.0 Serum Glucose 217 H 74-106 mg/dL Calcium Level 9.0 8.7-10.4 mg/dL Total Bilirubin 0.4 0.2-1.0 mg/dL Aspartate Amino Transferase (AST) 25 13-40 U/L Alanine Aminotransferase (ALT) 36 7-40 U/L Alkaline Phosphatase 90 46-116 U/L Troponin I High Sensitivity < 3 L </=54 ng/L B-Type Natriuretic Peptide 24.81 0-100 pg/mL Total Protein 7.6 5.7-8.2 g/dL Albumin 4.3 3.2-4.8 g/dL SEPSIS Sepsis Screen Date sepsis recognized/suspect: Jan 18, 2025 Time Sepsis recognized/suspect: 124 Recent Procedure: No On Antibiotic Therapy: No Respiratory Rate >20: No Heart Rate >90: No Temp<36 C (96.8 F) or >38.3 C: No SBP <90 or MAP <65 mmHG: No New Acute Mental Status Change: No Is the patient on CPAP, BIPAP,: No Physician Orders Chest Portable (01/18/25 01:45) Electrocardigram (01/18/25 01:45) Admit (01/18/25 06:45) Code Status (01/18/25 06:45) Sodium Chloride Lock (Saline Lock Ns) (01/18/25 14:00) Enoxaparin Sodium (Lovenox) (01/18/25 10:00) Complete Blood Count (01/18/25 06:45) Comprehensive Metabolic Panel (01/18/25 06:45) Cardiac Diet-2gna,Lofat,Lochol (01/18/25 Breakfast) Echo 2d Mode Cardiac Dop (01/18/25 06:45) Acetaminophen Tablet (Tylenol Tablet) (01/18/25 06:45) Morphine Sulfate Injection (01/18/25 06:45) Nitroglycerin Sublingual (Ntrostat Subli (01/18/25 06:45) Morphine Sulfate Injection (01/18/25 06:45) Oxygen By Nasal Cannula (01/18/25 06:45) Stat Ekg For Chest Pain (01/18/25 06:45) Notify Of Changes From Base (01/18/25 06:45) Airfreight Loading Supervisor For 24 Hours (01/18/25 06:45) Emergency Dysrhythmia Protocol (01/18/25 06:45) Rhythm Strips Once Every Shift (01/18/25 06:45) Aspirin Tablet (01/18/25 10:00) Furosemide Injection (Lasix Injection) (01/18/25 10:00) Vital Signs Date Time Temp Pulse Resp B/P (MAP) Pulse Ox O2 Delivery O2 Flow Rate FiO2 01/18/25 01:44 77 01/18/25 01:25 98.1 80 18 150/63 95 98.1 Laboratory Tests Test 01/18/25 02:44 White Blood Count 7.1 10^3/uL (4.4-10.8) Assessment/Plan Assessment/Plan # chest pain, rule out ACS # acute respiratory failure due to likely CHF exacerbation # shortness of breath Due to CHF exacerbation # HFpEF/HFrEF - EKG shows no ST elevation - tropes negative - ordered echocardiogram - Lasix IV daily - continue oxygen, keep saturation more than 92% # history of DC # history of PTCA - continue aspirin - continue atorvastatin 40 mg daily # Type 2 diabetes mellitus - ordered hemoglobin A1c - sliding scale insulin - monitor blood glucose level # hyperlipidemia - continue statin # hypotension - continue home medications Goal of care discussed with patient for 31 minutes: Full code Plan discussed with Dr. Chung Plan discussed with: Patient My Orders Orders - RONY CHILDERS RESIDENT Procedure Category Date Status Time Admit ADMIT 01/18/25 Transmitted 06:45 Code Status CODE 01/18/25 Transmitted 06:45 Sodium Chloride Lock PHA 01/18/25 In Process (Saline Lock Ns) 14:00 Enoxaparin Sodium PHA 01/18/25 In Process (Lovenox) 10:00 Complete Blood Count LAB 01/18/25 Logged 06:45 Comprehensive LAB 01/18/25 Logged Metabolic Panel 06:45 Cardiac DIET 01/18/25 Transmitted Diet-2gna,Lofat,Lochol Breakfast Echo 2d Mode Cardiac US 01/18/25 Logged DOP 06:45 Acetaminophen Tablet PHA 01/18/25 In Process (Tylenol Tablet) 06:45 Morphine Sulfate PHA 01/18/25 In Process Injection 06:45 Nitroglycerin PHA 01/18/25 In Process Sublingual (Ntrostat 06:45 Morphine Sulfate [facility] 01/18/25 In Process Injection 06:45 Oxygen By Nasal RT 01/18/25 Transmitted Cannula 06:45 Stat Ekg For Chest [facility] 01/18/25 In Process Pain 06:45 Notify Md Of Changes [facility] 01/18/25 In Process From Base 06:45 Airfreight Loading Supervisor For [facility] 01/18/25 In Process 24 Hours 06:45 Emergency Dysrhythmia [facility] 01/18/25 In Process Protocol 06:45 Rhythm Strips Once [facility] 01/18/25 In Process Every Shift 06:45 Aspirin Tablet [facility] 01/18/25 In Process 10:00 Furosemide Injection [facility] 01/18/25 In Process (Lasix Injection) 10:00 Date of Service: Jan 18, 2025 Billing Provider: NOHEMI CHUNG MD Common Visit Codes: [id number] INP/OBS CARE (HIGH) Secondary Visit Codes: [id number] CARE PLAN 30 MINUTES RONY CHILDERS RESIDENT Jan 18, 2025 07:05
[2025-01-18 07:50] VITALS: BP 167/99; PULSE 95; RESP 20; TEMP 97.1; O2SAT 95
[2025-01-18 08:07] LABS: Hematocrit 38.1 % (41.0-53.0); Hemoglobin 12.8 g/dL (13.5-17.5); Mean Corpuscular Hemoglobin 30.4 pg (28.0-32.0); Mean Corpuscular Volume 90.6 fL (80.0-100.0); Nucleated Red Blood Cells % 0.2 %
[2025-01-18 08:21] VITALS: BP 167/99; PULSE 86; RESP 20; TEMP 97.1; O2SAT 95
[2025-01-18 08:32] LABS: Alanine Aminotransferase 39 U/L (7-40); Albumin 4.0 g/dL (3.2-4.8); Alkaline Phosphatase 87 U/L (46-116); Anion Gap 9 (5-15); BUN/Creatinine Ratio 23.2 (10.0-20.0); Blood Urea Nitrogen 22 mg/dL (9-23); Carbon Dioxide 25 mmol/L (20-31); Chloride 102 mmol/L (98-107); Potassium 4.9 mmol/L (3.5-5.1); Sodium 136 mmol/L (136-145); Total Protein 7.2 g/dL (5.7-8.2)
[2025-01-18 08:33] LABS: Bilirubin, Total 0.3 mg/dL (0.2-1.0); Calcium 8.6 mg/dL (8.7-10.4); Glucose 191 mg/dL (74-106)
[2025-01-18 09:12] LABS: RBC Morphology Normal
[2025-01-18] MEDS: risperiDONE 1 MG TAB PO SCH (10:00)
[2025-01-18] MEDS: ENOXAPARIN SOD 40 MG/0.4 ML SYRINGE SC SCH (10:00)
[2025-01-18] MEDS: FUROSEMIDE 40 MG/4 ML VIAL IV SCH (11:15)
[2025-01-18] MEDS: CARVEDILOL 3.125 MG TAB PO SCH (11:16)
[2025-01-18] MEDS: ATORVASTATIN 20 MG TAB PO ONE (11:17)
[2025-01-18] MEDS: SPIRONOLACTONE 25 MG TAB PO SCH (11:18)
[2025-01-18] MEDS: SODIUM CHLOR 0.9% PF (SALINE LOCK) 10ML VIAL/SYR IV SCH (11:18)
[2025-01-18] MEDS: LOSARTAN POTASSIUM 50 MG TAB PO SCH (11:18)
[2025-01-18] MEDS: MORPHINE SULFATE INJ 2 MG/ml SYRG IV PRN (11:20)
[2025-01-18 12:12] VITALS: BP 112/55; PULSE 89; RESP 20; TEMP 97.7
[2025-01-18] MEDS ORDERED: GABAPENTIN 300 MG CAP PO SCH (14:00)
--- NOTE | 2025-01-19 13:25 | ECG ---
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
== END 2025-01-18 13:14 | disposition left against medical advice (07) | DRG 291 ==
LOC: EDBD 01:25 → ER 01:31 → OVERFLOW 06:45
PROVIDERS: ADMIT Internal Medicine; ATTEND Emergency Medicine
DX: I11.0 Hypertensive heart disease with heart failure (principal); I50.43 Acute on chronic combined systolic (congestive) and diastolic (congestive) heart failure; J96.00 Acute respiratory failure, unspecified whether with hypoxia or hypercapnia; I24.9 Acute ischemic heart disease, unspecified; E11.65 Type 2 diabetes mellitus with hyperglycemia; E78.5 Hyperlipidemia, unspecified; I27.20 Pulmonary hypertension, unspecified; I87.2 Venous insufficiency (chronic) (peripheral); Z53.29 Procedure and treatment not carried out because of patient's decision for other reasons; Z98.61 Coronary angioplasty status; I25.2 Old myocardial infarction
CPT/HCPCS: 36415; 71045; 80053; 83036; 83880; 84443; 84484; 85025; 85610; 85730; 93005; 96374; G0378

== ENCOUNTER 2025-01-19 00:40 | Inpatient (IN) | payer MEDICARE, MEDICAID ==
[~2025-01-19] VITALS: Ht 177.8 cm; Wt 163.0 kg
[2025-01-19] MEDS ORDERED: FUROSEMIDE 40 MG/4 ML VIAL IV ONE (01:15)
--- NOTE | 2025-01-19 02:00 | DVH ---
CHEST RADIOGRAPH Indication: SOB Technique: Single frontal view of the chest was obtained COMPARISON: XY CHEST PORTABLE on DOS: 01/18/25, XY CHEST XRAY 1 VIEW on DOS: 01/15/25, XY CHEST PORTABLE on DOS: 12/13/23, XY CHEST PORTABLE on DOS: 12/01/22, XY CHEST XRAY 1 VIEW on DOS: 11/27/22 FINDINGS: Lines and Tubes: None Lungs: Moderate diffuse increased prominence of the pulmonary vasculature. No evidence of focal cons olidation. Pleura: No effusion. No pneumothorax. Cardiomediastinal contours: Cardiomegaly. Bones: Unremarkable IMPRESSION: 1. Cardiomegaly with moderate pulmonary vascular congestion.
--- NOTE | 2025-01-19 02:03 | ED.PDOC ---
HPI Comments 69-year-old morbidly obese male is brought in by ambulance for chief complaint of chest pain and shortness a breath. Patient has not know what history of frequent ED visits recently being seen, evaluated, and leaving it is AMA from [facility] 4x times within the past week. Denial of any nausea, vomiting, fever, chills, or further associated symptoms. Chief Complaint: Chest Pain Time Seen by MD: 01:00 Primary Care Provider: UNKNOWN Reviewed Notes: Nurses Notes, Dieing Out Machine Operator Notes, Medications, Allergies Allergies: Coded Allergies: NO KNOWN ALLERGIES (Unverified , 06/25/16) Home Meds Active Scripts Potassium Chloride (Klor-Con 10) 10 Meq Tab, 10 MEQ PO DAILY for 30 Days, #30 TAB 3 Refills Prov:GOVIND CHRISTIANSON MD 11/22/22 Spironolactone (Aldactone) 25 Mg Tab, 25 MG PO DAILY for 30 Days, #30 TAB 3 Refills Prov:GOVIND CHRISTIANSON MD 11/22/22 Aspirin (Aspirin Low Dose) 81 Mg Tab, 81 MG PO DAILY for 30 Days, #30 TAB 3 Refills Prov:GOVIND CHRISTIANSON MD 11/22/22 Furosemide (Lasix) 40 Mg Tab, 40 MG PO QAM for 30 Days, #30 TAB 3 Refills Prov:GOVIND CHRISTIANSON MD 11/22/22 Reported Medications Risperidone (Risperidone) 0.5 Mg Tab, 2 TAB PO BID 01/16/25 Gabapentin (Gabapentin) 300 Mg Cap, 1 CAP PO TID, #90 CAP 5 Refills 01/16/25 Lisinopril (Lisinopril) 40 Mg Tab, 1 TAB PO DAILY 01/16/25 Carvedilol (Carvedilol) 6.25 Mg Tab, 1 TAB PO BID 01/16/25 Metformin Hydrochloride (Metformin Hcl) 1,000 Mg Tab, 1 TAB PO BID 01/16/25 Atorvastatin Calcium (ATORVASTATIN CALCIUM) 40 Mg Tab, 1 TAB PO 11/21/22 Nifedipine (Nifedipine Er) 60 Mg Tab, 60 MG PO DAILY 11/20/22 Losartan Potassium (Losartan Potassium) 50 Mg Tab, 1 TAB PO DAILY 11/20/22 Discontinued Reported Medications Gabapentin (Gabapentin) Unknown Strength Cap, PO, CAP 06/17/20 Metformin Hydrochloride (Metformin Hcl) Unknown Strength Tab, PO, TAB 06/17/20 Furosemide (Lasix) Unknown Strength Tb, GT, TAB 06/17/20 Discontinued Scripts Metformin Hydrochloride (Metformin Hcl) 850 Mg Tab, 850 MG PO BID for 30 Days, #60 TAB 3 Refills Prov:GOVIND CHRISTIANSON MD 11/22/22 Lisinopril (Lisinopril) 10 Mg Tab, 20 MG PO DAILY for 30 Days, #60 TAB 3 Refills Prov:GOVIND CHRISTIANSON MD 11/22/22 Docusate Sodium (Docusate Sodium) 100 Mg Cap, 100 MG PO BIDPRN PRN for 30 Days, #40 CAP Prov:GOVIND CHRISTIANSON MD 11/22/22 Cephalexin (KEFLEX CAPSULE) 250 Mg Cp, 500 MG PO TID for 7 Days, #21 CAP Prov:GOVIND CHRISTIANSON MD 11/22/22 Atorvastatin Calcium (ATORVASTATIN CALCIUM) 20 Mg Tab, 20 MG PO HS for 30 Days, #30 TAB 2 Refills Prov:GOVIND CHRISTIANSON MD 11/22/22 Information Source: Patient, Emergency Med Personnel Mode of Arrival: EMS Past Medical History PAST MEDICAL HISTORY: Cancer, CHF, DM, High Lipids, HTN, [place] Past Medical History (Other): Morbidly obese Noncompliant Frequent ED visits Surgical History: PTCA, Tonsillectomy Family History Family History: Reviewed,noncontributory to illness Social History Smoker: Non-Smoker Alcohol: Denies ETOH Use Drugs: Denies Drug Use Lives In: Home All Other Systems: Reviewed and Negative (Comprehensive review of systems are negative unless otherwise stating HPI) Physical Exam General Appearance: No Apparent Distress, Obese HEENT: Normal ENT Inspection, Pharynx Normal, TMs Normal Neck: Full Range of Motion, Non-Tender, Normal, Normal Inspection Respiratory: Chest Non-Tender, Decreased Breath Sounds (Diminished lung sounds to bilateral bases), No Accessory Muscle Use, No Respiratory Distress Cardiovascular: No Edema, No JVD, No Murmur, No Gallop, Normal Peripheral P ulses, Regular Rate/Rhythm Breast Exam: Deferred Gastrointestinal: No Organomegaly, Non Tender, No Pulsatile Mass, Normal Bowel Sounds, Soft Genitalia: Deferred Pelvic: Deferred Rectal: Deferred Extremities: No calf tenderness, Normal capillary refill, Normal range of motion, Non-tender, No pedal edema, Other (Venous stasis dermatitis to bilateral lower) Musculoskeletal : Apperance: Normal Neurologic: Alert, excellence coach II-XII nml as Tested, No Motor Deficits, Normal Affect, Normal Mood, No Sensory Deficits Cerebellar Function: Normal Reflexes: Normal Skin: Dry, Normal Color, Warm, Other (Venous stasis dermatitis to bilateral lower) Lymphatic: No Adenopathy Was a procedure done? Was a procedure done?: No CP Differential Dx Differential Diagnosis: N/A Differential Diagnosis: N/A Differential Diagnosis: Angina, Chest Wall Pain, Costochondritis, Esophageal reflux/spasm, Gastritis, Myocardial Infarction, Pericarditis, Pneumonia, Pulmonary Embolus X-Ray, Labs, Meds, VS Vital Signs Date Time Temp Pulse Resp B/P (MAP) Pulse Ox O2 Delivery O2 Flow Rate FiO2 01/19/25 00:40 98.2 81 22 184/86 94 98.2 Lab Test 01/19/25 01:45 Range/Units White Blood Count 7.6 4.4-10.8 10^3/uL Red Blood Count 4.06 L 4.5-5.90 10^6/uL Hemoglobin 12.6 L 13.5-17.5 g/dL Hematocrit 36.8 L 41.0-53.0 % Mean Corpuscular Volume 90.7 80.0-100.0 fL Mean Corpuscular Hemoglobin 31.1 28.0-32.0 pg Mean Corpuscular Hemoglobin Concent 34.3 32.0-36.0 g/dL Red Cell Distribution Width 14.1 11.8-14.3 % Platelet Count 210 # 140-450 10^3/uL Mean Platelet Volume 7.9 6.9-10.8 fL Neutrophils (%) (Auto) 62.9 37.0-80.0 % Lymphocytes (%) (Auto) 21.9 10.0-50.0 % Monocytes (%) (Auto) 12.0 0.0-12.0 % Eosinophils (%) (Auto) 2.1 0.0-7.0 % Basophils (%) (Auto) 1.1 0.0-2.0 % Neutrophils # (Auto) 4.8 1.6-8.6 10 ^3/uL Lymphocytes # (Auto) 1.7 0.4-5.4 10 ^3/uL Monocytes # (Auto) 0.9 0-1.3 10 ^3/uL Eosinophils # (Auto) 0.2 0-0.8 10 ^3/uL Basophils # (Auto) 0.1 0-0.2 10 ^3/uL Nucleated Red Blood Cells 0.2 % Sodium Level 136 136-145 mmol/L Potassium Level 4.4 3.5-5.1 mmol/L Chloride Level 100 98-107 mmol/L Carbon Dioxide Level 28 20-31 mmol/L Anion Gap 8 5-15 Blood Urea Nitrogen 23 9-23 mg/dL Creatinine 0.96 0.700-1.30 mg/dL Glomerular Filtration Rate Calc 85 >90 mL/min BUN/Creatinine Ratio 24.0 H 10.0-20.0 Serum Glucose 259 H 74-106 mg/dL Calcium Level 8.9 8.7-10.4 mg/dL Total Bilirubin 0.2 0.2-1.0 mg/dL Aspartate Amino Transferase (AST) 27 13-40 U/L Alanine Aminotransferase (ALT) 43 H 7-40 U/L Alkaline Phosphatase 131 H 46-116 U/L Troponin I High Sensitivity 6 </=54 ng/L B-Type Natriuretic Peptide 43.02 0-100 pg/mL Total Protein 7.3 5.7-8.2 g/dL Albumin 4.3 3.2-4.8 g/dL [place] [id number] Ph: [phone] DIAGNOSTIC IMAGING Diagnostic Imaging Report : [id number] Signed PATIENT: JUAQUIN ANTUNEZ ACCT: [id number] UNIT: [id number] : 1955 LOC: ER ROOM / BED: / AGE / SEX: 69 / M ADM STATUS: REG ER SERVICE 0104 ORDERING PHYSICIAN: NURIA PARDO MD PROCEDURE(s): CXRP - CHEST PORTABLE REASON: SOB ORDER NUMBER(s): [id number], ACCESSION NUMBER(s): [id number] CHEST RADIOGRAPH Indication: SOB Technique: Single frontal view of the chest was obtained COMPARISON: XY CHEST PORTABLE on DOS: 01/18/25, XY CHEST XRAY 1 VIEW on DOS: 01/15/25, XY CHEST PORTABLE on DOS: 12/13/23, XY CHEST PORTABLE on DOS: 12/01/22, XY CHEST XRAY 1 VIEW on DOS: 11/27/22 FINDINGS: Lines and Tubes: None Lungs: Moderate diffuse increased prominence of the pulmonary vasculature. No evidence of focal consolidation. Pleura: No effusion. No pneumothorax. Cardiomediastinal contours: Cardiomegaly. Bones: Unremarkable IMPRESSION: 1. Cardiomegaly with moderate pulmonary vascular congestion. ATED BY: SIMON BONDS MD DICTATED DATE/TIME: 01/19/25157 SIGNED BY: SIMON BONDS MD SIGNED DATE/TIME: 01/19/25157 CC: Time of 1ST Reevaluation: 01:30 Reevaluation 1ST: Unchanged Patient Education/Counseling: Diagnosis, Treatment Family Education/Counseling: No Family Present SEPSIS Sepsis Screen Date sepsis recognized/suspect: Jan 19, 2025 Time Sepsis recognized/suspect: 004 Recent Procedure: No On Antibiotic Therapy: No Respiratory Rate >20: No Heart Rate >90: No Temp<36 C (96.8 F) or >38.3 C: No SBP <90 or MAP <65 mmHG: No New Acute Mental Status Change: No Is the patient on CPAP, BIPAP,: No Physician Orders Chest Portable (01/19/25 01:04) Oxygen (01/19/25 01:04) Electrocardigram (01/19/25 01:04) Vital Signs Date Time Temp Pulse Resp B/P (MAP) Pulse Ox O2 Delivery O2 Flow Rate FiO2 01/19/25 00:40 98.2 81 22 184/86 94 98.2 Laboratory Tests Test 01/19/25 01:45 White Blood Count 7.6 10^3/uL (4.4-10.8) Departure 1 Departure Time of Disposition: 03:29 Impression: Primary Impression: Intermediate coronary syndrome Additional Impressions: Venous stasis dermatitis Pulmonary hypertension Disposition: ADMITTED INPATIENT Admit to: [facility] Condition: Guarded Critical Care Note Critical Care Time?: No Stability Stability form required: No Heart Score Heart Score: Heart Score Response (Comments) Value History Moderate Suspicious 1 EKG Normal 0 Age >65 2 Risk Factors >3 or Hx ASHD 2 Troponin Normal limit 0 Total 5 I personally scribed for NURIA PARDO MD ([email or web address]) on 01/19/25 at 02:03. Electronically submitted by Matt Vega ([email or web address]). I personally scribed for NURIA PARDO MD ([email or web address]) on 01/19/25 at 02:09. Electronically submitted by Matt Vega ([email or web address]). NURIA PARDO MD Jan 19, 2025 02:03
[2025-01-19 02:04] LABS: Hematocrit 36.8 % (41.0-53.0); Hemoglobin 12.6 g/dL (13.5-17.5); Mean Corpuscular Hemoglobin 31.1 pg (28.0-32.0); Mean Corpuscular Volume 90.7 fL (80.0-100.0); Nucleated Red Blood Cells % 0.2 %
[2025-01-19 02:18] LABS: Alanine Aminotransferase 43 U/L (7-40); Albumin 4.3 g/dL (3.2-4.8); Alkaline Phosphatase 131 U/L (46-116); Anion Gap 8 (5-15); BUN/Creatinine Ratio 24.0 (10.0-20.0); Bilirubin, Total 0.2 mg/dL (0.2-1.0); Blood Urea Nitrogen 23 mg/dL (9-23); Calcium 8.9 mg/dL (8.7-10.4); Carbon Dioxide 28 mmol/L (20-31); Chloride 100 mmol/L (98-107); Glucose 259 mg/dL (74-106); Potassium 4.4 mmol/L (3.5-5.1); Sodium 136 mmol/L (136-145); Total Protein 7.3 g/dL (5.7-8.2)
[2025-01-19] MEDS ORDERED: ONDANSETRON HCL 4 MG/2 ML VIAL IV PRN (04:45)
[2025-01-19] MEDS ORDERED: DEXTROSE (50%) 50ML SYRG IV PRN (04:45)
[2025-01-19] MEDS ORDERED: hydrALAZINE HCL 20 MG/ML VL IV PRN (04:45)
--- NOTE | 2025-01-19 04:53 | DVHHP2 ---
History of Present Illness Reason for Visit: Shortness of breaths History of Present Illness 69-year-old male presents for evaluation of shortness for breath. Patient returns to the emergency department after leaving today against medical advice without completing his workup for CHF exacerbation. He states having shortness for breath with lower extremity swelling. Denies cough or fever. No other acute complaints reported Past Medical History Diabetes mellitus, dyslipidemia, hypertension, mi, CHF Past Surgical History Tonsillectomy and PTCA Family History Noncontributory Smoke: No ALCOHOL: none Drugs: None Lives: with Family Review of Systems Review of Systems Review of systems are currently negative otherwise addressed in HPI. Allergies: Coded Allergies: NO KNOWN ALLERGIES (Unverified , 06/25/16) Medications Current Medications Medications Dose Ordered Sig/Rebel Route Start Time Stop Time Status Last Admin Dose Admin Aspirin 81 mg DAILY PO 01/19/25 10:00 UNV Furosemide 20 mg BIDD IV 01/19/25 06:00 UNV Atorvastatin Calcium 40 mg HS PO 01/19/25 22:00 UNV Carvedilol 6.25 mg Q12HR PO 01/19/25 10:00 UNV Gabapentin 300 mg TID PO 01/19/25 06:00 UNV Lisinopril 40 mg DAILY PO 01/19/25 10:00 UNV Nifedipine 60 mg DAILY PO 01/19/25 10:00 UNV Hydralazine HCl 10 mg Q6HP PRN IV 01/19/25 04:45 UNV Diagnostic Test (Pha) 1 strip ACHS 01/19/25 07:00 UNV Insulin Human Regular ACHS SC 01/19/25 07:00 UNV Dextrose 50 ml UD PRN IV 01/19/25 04:45 UNV Ondansetron HCl 4 mg Q4HP PRN IV 01/19/25 04:45 UNV Enoxaparin Sodium 40 mg DAILY SC 01/19/25 10:00 UNV Exam Vital Signs Vital Signs Date Time Temp Pulse Resp B/P (MAP) Pulse Ox O2 Delivery O2 Flow Rate FiO2 01/19/25 00:40 98.2 81 22 184/86 94 98.2 Exam Gen: 69-year-old male in mild distress, morbidly obese Skin: Warm, dry, normal color and texture, no rash. HEENT: Normocephalic atraumatic, mucous membranes moist and pink. Neck: Cervical and supraclavicular nodes normal without enlargement, trachea is midline, thyroid gland is normal without masses. Pulmonary: Clear to auscultation and percussion bilaterally. Cardiac: Regular rate and rhythm. No murmur Abdomen: Soft, nontender, nondistended, bowel sounds present all 4 quadrants, no guarding, no rigidity, no organomegaly. Extremities: No cyanosis, clubbing, plus two edema bilateral legs Neuro: Cranial nerves II through XII grossly intact, normal affect and speech, no focal motor deficits. Labs/Xrays ORDERING PHYSICIAN: NURIA PARDO MD PROCEDURE(s): CXRP - CHEST PORTABLE REASON: SOB ORDER NUMBER(s): [id number], ACCESSION NUMBER(s): [id number] CHEST RADIOGRAPH Indication: SOB Technique: Single frontal view of the chest was obtained COMPARISON: XY CHEST PORTABLE on DOS: 01/18/25, XY CHEST XRAY 1 VIEW on DOS: 01/15/25, XY CHEST PORTABLE on DOS: 12/13/23, XY CHEST PORTABLE on DOS: 12/01/22, XY CHEST XRAY 1 VIEW on DOS: 11/27/22 FINDINGS: Lines and Tubes: None Lungs: Moderate diffuse increased prominence of the pulmonary vasculature. No evidence of focal consolidation. Pleura: No effusion. No pneumothorax. Cardiomediastinal contours: Cardiomegaly. Bones: Unremarkable IMPRESSION: 1. Cardiomegaly with moderate pulmonary vascular congestion. Labs Test 01/19/25 01:45 Range/Units White Blood Count 7.6 4.4-10.8 10^3/uL Red Blood Count 4.06 L 4.5-5.90 10^6/uL Hemoglobin 12.6 L 13.5-17.5 g/dL Hematocrit 36.8 L 41.0-53.0 % Mean Corpuscular Volume 90.7 80.0-100.0 fL Mean Corpuscular Hemoglobin 31.1 28.0-32.0 pg Mean Corpuscular Hemoglobin Concent 34.3 32.0-36.0 g/dL Red Cell Distribution Width 14.1 11.8-14.3 % Platelet Count 210 # 140-450 10^3/uL Mean Platelet Volume 7.9 6.9-10.8 fL Neutrophils (%) (Auto) 62.9 37.0-80.0 % Lymphocytes (%) (Auto) 21.9 10.0-50.0 % Monocytes (%) (Auto) 12.0 0.0-12.0 % Eosinophils (%) (Auto) 2.1 0.0-7.0 % Basophils (%) (Auto) 1.1 0.0-2.0 % Neutrophils # (Auto) 4.8 1.6-8.6 10 ^3/uL Lymphocytes # (Auto) 1.7 0.4-5.4 10 ^3/uL Monocytes # (Auto) 0.9 0-1.3 10 ^3/uL Eosinophils # (Auto) 0.2 0-0.8 10 ^3/uL Basophils # (Auto) 0.1 0-0.2 10 ^3/uL Nucleated Red Blood Cells 0.2 % Sodium Level 136 136-145 mmol/L Potassium Level 4.4 3.5-5.1 mmol/L Chloride Level 100 98-107 mmol/L Carbon Dioxide Level 28 20-31 mmol/L Anion Gap 8 5-15 Blood Urea Nitrogen 23 9-23 mg/dL Creatinine 0.96 0.700-1.30 mg/dL Glomerular Filtration Rate Calc 85 >90 mL/min BUN/Creatinine Ratio 24.0 H 10.0-20.0 Serum Glucose 259 H 74-106 mg/dL Calcium Level 8.9 8.7-10.4 mg/dL Total Bilirubin 0.2 0.2-1.0 mg/dL Aspartate Amino Transferase (AST) 27 13-40 U/L Alanine Aminotransferase (ALT) 43 H 7-40 U/L Alkaline Phosphatase 131 H 46-116 U/L Troponin I High Sensitivity 6 </=54 ng/L B-Type Natriuretic Peptide 43.02 0-100 pg/mL Total Protein 7.3 5.7-8.2 g/dL Albumin 4.3 3.2-4.8 g/dL SEPSIS Sepsis Screen Date sepsis recognized/suspect: Jan 19, 2025 Time Sepsis recognized/suspect: 004 Recent Procedure: No On Antibiotic Therapy: No Respiratory Rate >20: No Heart Rate >90: No Temp<36 C (96.8 F) or >38.3 C: No SBP <90 or MAP <65 mmHG: No New Acute Mental Status Change: No Is the patient on CPAP, BIPAP,: No Physician Orders Chest Portable (01/19/25 01:04) Oxygen (01/19/25 01:04) Electrocardigram (01/19/25 01:04) Aspirin Tablet (01/19/25 10:00) Furosemide Injection (Lasix Injection) (01/19/25 06:00) Atorvastatin (Lipitor) (01/19/25 22:00) Carvedilol Tablet (Coreg Tablet) (01/19/25 10:00) Gabapentin Capsule (Neurontin Capsule) (01/19/25 06:00) Lisinopril Tablet (Zestril Tablet) (01/19/25 10:00) Nifedipine Er (Procardia Xl (Time-Releas (01/19/25 10:00) Hydralazine Injection (Apresoline Inject (01/19/25 04:45) Basic Metabolic Panel (01/20/25 04:00) Glucose Blood (Accu-Chek Comfort Curve T (01/19/25 07:00) Insulin R (Human) (Insulin R) (01/19/25 07:00) Dextrose 50% Syringe (01/19/25 04:45) Admit (01/19/25 04:41) Ondansetron Hcl (Zofran) (01/19/25 04:45) Enoxaparin Sodium (Lovenox) (01/19/25 10:00) Cardiac Diet-2gna,Lofat,Lochol (01/19/25 Breakfast) Echo 2d Mode Cardiac Dop (01/19/25 04:41) Condition: Stable (01/19/25 04:41) Bedrest With Bathroom Privileg (01/19/25 04:41) Vital Signs Date Time Temp Pulse Resp B/P (MAP) Pulse Ox O2 Delivery O2 Flow Rate FiO2 01/19/25 00:40 98.2 81 22 184/86 94 98.2 Laboratory Tests Test 01/19/25 01:45 White Blood Count 7.6 10^3/uL (4.4-10.8) Assessment/Plan Assessment/Plan Assessment CHF exacerbation History of VT Status post PTCA Diabetes mellitus Hypertension Noncompliant Plan Admit the patient to [facility] to the hospitalist Echocardiogram pending IV Lasix Resume home medications Continue treatment per orders. Plan discussed with: Patient My Orders Orders - GOVIND CONN Procedure Category Date Status Time Aspirin Tablet PHA 01/19/25 Logged 10:00 Furosemide Injection PHA 01/19/25 Logged (Lasix Injection) 06:00 Atorvastatin (Lipitor) PHA 01/19/25 Logged 22:00 Carvedilol Tablet PHA 01/19/25 Logged (Coreg Tablet) 10:00 Gabapentin Capsule PHA 01/19/25 Logged (Neurontin Capsule) 06:00 Lisinopril Tablet PHA 01/19/25 Logged (Zestril Tablet) 10:00 Nifedipine Er PHA 01/19/25 Logged (Procardia Xl 10:00 Hydralazine Injection PHA 01/19/25 Logged (Apresoline Inject 04:45 Basic Metabolic Panel LAB 01/20/25 Verified 04:00 Glucose Blood PHA 01/19/25 Logged (Accu-Chek Comfort 07:00 Insulin R (Human) PHA 01/19/25 Logged (Insulin R) 07:00 Dextrose 50% Syringe PHA 01/19/25 Logged 04:45 Admit ADMIT 01/19/25 Transmitted 04:41 Ondansetron Hcl PHA 01/19/25 Logged (Zofran) 04:45 Enoxaparin Sodium PHA 01/19/25 Logged (Lovenox) 10:00 Cardiac DIET 01/19/25 Transmitted Diet-2gna,Lofat,Lochol Breakfast Echo 2d Mode Cardiac US 01/19/25 Logged DOP 04:41 Condition: Stable CAROLEE 01/19/25 In Process 04:41 Bedrest With Bathroom CAROLEE 01/19/25 In Process Privileg 04:41 Date of Service: Jan 19, 2025 Billing Provider: GOVIND CONN Common Visit Codes: [id number] INP/OBS CARE (HIGH) GOVIND CONN Jan 19, 2025 04:53
[2025-01-19] MEDS ORDERED: FUROSEMIDE 20 MG/2 ML VIAL IV SCH (06:00)
[2025-01-19] MEDS: ACCU-CHEK COMFORT CURVE STRIP VI SCH (07:00)
[2025-01-19] MEDS: GABAPENTIN 300 MG CAP PO SCH (08:37)
[2025-01-19] MEDS: InsuLIN REG 1unit/0.01ml Soln (100units/ml) SC SCH (09:46)
[2025-01-19] MEDS ORDERED: CARVEDILOL 3.125 MG TAB PO SCH (10:00)
[2025-01-19] MEDS ORDERED: ENOXAPARIN SOD 40 MG/0.4 ML SYRINGE SC SCH (10:00)
[2025-01-19] MEDS ORDERED: LISINOPRIL 20 MG TAB PO SCH (10:00)
[2025-01-19 10:19] VITALS: BP 147/100; PULSE 38; RESP 16; TEMP 97.7; O2SAT 100
--- NOTE | 2025-01-19 13:43 | ECG ---
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
--- NOTE | 2025-01-19 15:06 | DVHDS2 ---
Discharge Summary Date of Admission Jan 19, 2025 at 04:41 Date of Discharge: Jan 19, 2025 Labs/Diagnostic Data: Laboratory Results Test 01/19/25 01:45 White Blood Count 7.6 10^3/uL (4.4-10.8) Red Blood Count 4.06 10^6/uL (4.5-5.90) Hemoglobin 12.6 g/dL (13.5-17.5) Hematocrit 36.8 % (41.0-53.0) Mean Corpuscular Volume 90.7 fL (80.0-100.0) Mean Corpuscular Hemoglobin 31.1 pg (28.0-32.0) Mean Corpuscular Hemoglobin Concent 34.3 g/dL (32.0-36.0) Red Cell Distribution Width 14.1 % (11.8-14.3) Platelet Count 210 10^3/uL (140-450) Mean Platelet Volume 7.9 fL (6.9-10.8) Neutrophils (%) (Auto) 62.9 % (37.0-80.0) Lymphocytes (%) (Auto) 21.9 % (10.0-50.0) Monocytes (%) (Auto) 12.0 % (0.0-12.0) Eosinophils (%) (Auto) 2.1 % (0.0-7.0) Basophils (%) (Auto) 1.1 % (0.0-2.0) Neutrophils # (Auto) 4.8 10 ^3/uL (1.6-8.6) Lymphocytes # (Auto) 1.7 10 ^3/uL (0.4-5.4) Monocytes # (Auto) 0.9 10 ^3/uL (0-1.3) Eosinophils # (Auto) 0.2 10 ^3/uL (0-0.8) Basophils # (Auto) 0.1 10 ^3/uL (0-0.2) Nucleated Red Blood Cells 0.2 % Sodium Level 136 mmol/L (136-145) Potassium Level 4.4 mmol/L (3.5-5.1) Chloride Level 100 mmol/L (98-107) Carbon Dioxide Level 28 mmol/L (20-31) Anion Gap 8 (5-15) Blood Urea Nitrogen 23 mg/dL (9-23) Creatinine 0.96 mg/dL (0.700-1.30) Glomerular Filtration Rate Calc 85 mL/min (>90) BUN/Creatinine Ratio 24.0 (10.0-20.0) Serum Glucose 259 mg/dL (74-106) Calcium Level 8.9 mg/dL (8.7-10.4) Total Bilirubin 0.2 mg/dL (0.2-1.0) Aspartate Amino Transferase (AST) 27 U/L (13-40) Alanine Aminotransferase (ALT) 43 U/L (7-40) Alkaline Phosphatase 131 U/L (46-116) Troponin I High Sensitivity 6 ng/L (</=54) B-Type Natriuretic Peptide 43.02 pg/mL (0-100) Total Protein 7.3 g/dL (5.7-8.2) Albumin 4.3 g/dL (3.2-4.8) Other Laboratory Tests 01/19/25 01:45 Brief Hx & Hospital Course: Patient left AMA prior to being evaluated. Condition at Discharge: Poor Final Diagnosis/Problems List Acute Systolic CHF exacerbation History of SC Status post PTCA Diabetes mellitus Hypertension Noncompliant Discharge Disposition: AMA Discharge Instruct/Medications Scheduled Aspirin (Aspirin Low Dose), 81 MG PO DAILY Carvedilol (Carvedilol), 1 TAB PO BID, (Reported) Furosemide (Lasix), 40 MG PO QAM Gabapentin (Gabapentin), 1 CAP PO TID, (Reported) Lisinopril (Lisinopril), 1 TAB PO DAILY, (Reported) Losartan Potassium (Losartan Potassium), 1 TAB PO DAILY, (Reported) Metformin Hydrochloride (Metformin Hcl), 1 TAB PO BID, (Reported) Nifedipine (Nifedipine Er), 60 MG PO DAILY, (Reported) Potassium Chloride (Klor-Con 10), 10 MEQ PO DAILY Risperidone (Risperidone), 2 TAB PO BID, (Reported) Spironolactone (Aldactone), 25 MG PO DAILY Miscellaneous Medications Atorvastatin Calcium (Atorvastatin Calcium), 1 TAB PO, (Reported) Discontinued Medications Atorvastatin Calcium (Atorvastatin Calcium), 20 MG PO HS Cephalexin (Keflex Capsule), 500 MG PO TID Docusate Sodium (Docusate Sodium), 100 MG PO BIDPRN PRN Furosemide (Lasix), Unknown Dose GT, (Reported) Gabapentin (Gabapentin), Unknown Dose PO, (Reported) Lisinopril (Lisinopril), 20 MG PO DAILY Metformin Hydrochloride (Metformin Hcl), Unknown Dose PO, (Reported) Metformin Hydrochloride (Metformin Hcl), 850 MG PO BID ASSESSMENT ASSESSMENT Assessment Date of Service: Jan 19, 2025 Billing Provider: NOHEMI RIVERA MD Common Visit Codes: [id number] DISCH DAY <30MIN NOHEMI RIVERA MD Jan 19, 2025 15:06
[2025-01-19] MEDS ORDERED: ATORVASTATIN 20 MG TAB PO SCH (22:00)
== END 2025-01-19 11:31 | disposition left against medical advice (07) | DRG 291 ==
LOC: ER 00:40 → EDBD 00:40 → OVERFLOW 04:41
PROVIDERS: ADMIT Internal Medicine; ATTEND Internal Medicine
DX: I11.0 Hypertensive heart disease with heart failure (principal); I50.23 Acute on chronic systolic (congestive) heart failure; Z68.43 Body mass index [BMI] 50.0-59.9, adult; I27.20 Pulmonary hypertension, unspecified; I20.0 Unstable angina; E66.01 Morbid (severe) obesity due to excess calories; E11.9 Type 2 diabetes mellitus without complications; I87.2 Venous insufficiency (chronic) (peripheral); E78.5 Hyperlipidemia, unspecified; I25.2 Old myocardial infarction; Z53.29 Procedure and treatment not carried out because of patient's decision for other reasons; Z98.61 Coronary angioplasty status; Z91.199 Patient's noncompliance with other medical treatment and regimen due to unspecified reason
CPT/HCPCS: 36415; 71045; 80053; 83880; 84484; 85025; 93005; 96372; G0378; J1815

== ENCOUNTER 2025-01-19 14:00 | Emergency (ER) | payer MEDICAID ==
[~2025-01-19] VITALS: Ht 170.2 cm; Wt 100.0 kg
[2025-01-19 14:03] VITALS: BP 133/73; PULSE 86; RESP 20; TEMP 98; O2SAT 94
--- NOTE | 2025-01-19 14:59 | ED.PDOC ---
History of Present Illness HPI Comments This is a 69-year-old male with past medical history of HFpEF, dyslipidemia, diabetes, hypertension, and the bipolar/schizophrenia came to the hospital due to bilateral lower limb swelling and pain. Per patient, he has bilateral lower limb swelling since 2011, but recently has been worsened. He also reports of lower limb discomfort, cough, and shortness of breaths. Home meds: Lantus, metformin, carvedilol, lisinopril, atorvastatin, spironolactone, risperidone, gabapentin, Eliquis, Farxiga, and aspirin (per patient he has not been using his medicine). Chief Complaint: Lower Extremity Time Seen by MD: 14:19 Primary Care Provider: UNKNOWN Allergies: Coded Allergies: NO KNOWN ALLERGIES (Unverified , 06/25/16) Home Meds Active Scripts Potassium Chloride (Klor-Con 10) 10 Meq Tab, 10 MEQ PO DAILY for 30 Days, #30 TAB 3 Refills Prov:GOVIND CHRISTIANSON MD 11/22/22 Spironolactone (Aldactone) 25 Mg Tab, 25 MG PO DAILY for 30 Days, #30 TAB 3 Refills Prov:GOVIND CHRISTIANSON MD 11/22/22 Aspirin (Aspirin Low Dose) 81 Mg Tab, 81 MG PO DAILY for 30 Days, #30 TAB 3 Refills Prov:GOVIND CHRISTIANSON MD 11/22/22 Furosemide (Lasix) 40 Mg Tab, 40 MG PO QAM for 30 Days, #30 TAB 3 Refills Prov:GOVIND CHRISTIANSON MD 11/22/22 Reported Medications Risperidone (Risperidone) 0.5 Mg Tab, 2 TAB PO BID 01/16/25 Gabapentin (Gabapentin) 300 Mg Cap, 1 CAP PO TID, #90 CAP 5 Refills 01/16/25 Lisinopril (Lisinopril) 40 Mg Tab, 1 TAB PO DAILY 01/16/25 Carvedilol (Carvedilol) 6.25 Mg Tab, 1 TAB PO BID 01/16/25 Metformin Hydrochloride (Metformin Hcl) 1,000 Mg Tab, 1 TAB PO BID 01/16/25 Atorvastatin Calcium (ATORVASTATIN CALCIUM) 40 Mg Tab, 1 TAB PO 11/21/22 Nifedipine (Nifedipine Er) 60 Mg Tab, 60 MG PO DAILY 11/20/22 Losartan Potassium (Losartan Potassium) 50 Mg Tab, 1 TAB PO DAILY 11/20/22 Discontinued Reported Medications Gabapentin (Gabapentin) Unknown Strength Cap, PO, CAP 06/17/20 Metformin Hydrochloride (Metformin Hcl) Unknown Strength Tab, PO, TAB 06/17/20 Furosemide (Lasix) Unknown Strength Tb, GT, TAB 06/17/20 Discontinued Scripts Metformin Hydrochloride (Metformin Hcl) 850 Mg Tab, 850 MG PO BID for 30 Days, #60 TAB 3 Refills Prov:GOVIND CHRISTIANSON MD 11/22/22 Lisinopril (Lisinopril) 10 Mg Tab, 20 MG PO DAILY for 30 Days, #60 TAB 3 Refills Prov:GOVIND CHRISTIANSON MD 11/22/22 Docusate Sodium (Docusate Sodium) 100 Mg Cap, 100 MG PO BIDPRN PRN for 30 Days, #40 CAP Prov:GOVIND CHRISTIANSON MD 11/22/22 Cephalexin (KEFLEX CAPSULE) 250 Mg Cp, 500 MG PO TID for 7 Days, #21 CAP Prov:GOVIND CHRISTIANSON MD 11/22/22 Atorvastatin Calcium (ATORVASTATIN CALCIUM) 20 Mg Tab, 20 MG PO HS for 30 Days, #30 TAB 2 Refills Prov:GOVIND CHRISTIANSON MD 11/22/22 Mode of Arrival: Wheelchair Past Medical History PAST MEDICAL HISTORY: Cancer, CHF, DM, High Lipids, HTN, RI Surgical History: PTCA, Tonsillectomy Family History Family History: Reviewed,noncontributory to illness Social History Smoker: Non-Smoker Alcohol: Denies ETOH Use Drugs: Denies Drug Use Lives In: Home Physical Exam General Appearance: No Apparent Distress, Normal HEENT: Normal ENT Inspection, Pharynx Normal, TMs Normal Neck: Full Range of Motion, Non-Tender, Normal, Normal Inspection Respiratory: Chest Non-Tender, Lungs Clear, No Accessory Muscle Use, No Respiratory Distress, Normal Breath Sounds Cardiovascular: No Edema, No JVD, No Murmur, No Gallop, Normal Peripheral Pulses, Regular Rate/Rhythm Breast Exam: Deferred Gastrointestinal: No Organomegaly, Non Tender, No Pulsatile Mass, Normal Bowel Sounds, Soft Genitalia: Deferred Pelvic: Deferred Rectal: Deferred Extremities: Leg edema, Swelling Neurologic: Alert, bag tester II-XII nml as Tested, No Motor Deficits, Normal Affect, Normal Mood, No Sensory Deficits Cerebellar Function: Normal Reflexes: Normal Skin: Dry, Normal Color, Warm Lymphatic: No Adenopathy Was a procedure done? Was a procedure done?: No Differential Dx Considerations may include: Heart failure exacerbation. Pneumonia Volume overload Bilateral lower limb edema next X-Ray, Labs, Meds, VS Vital Signs Date Time Temp Pulse Resp B/P (MAP) Pulse Ox O2 Delivery O2 Flow Rate FiO2 01/19/25 14:03 98.0 86 20 133/73 94 98.0 Lab Test 01/19/25 15:33 Range/Units White Blood Count 7.9 4.4-10.8 10^3/uL Red Blood Count 4.13 L 4.5-5.90 10^6/uL Hemoglobin 12.6 L 13.5-17.5 g/dL Hematocrit 37.0 L 41.0-53.0 % Mean Corpuscular Volume 89.6 80.0-100.0 fL Mean Corpuscular Hemoglobin 30.4 28.0-32.0 pg Mean Corpuscular Hemoglobin Concent 34.0 32.0-36.0 g/dL Red Cell Distribution Width 14.3 11.8-14.3 % Platelet Count 212 140-450 10^3/uL Mean Platelet Volume 8.1 6.9-10.8 fL Neutrophils (%) (Auto) 72.9 37.0-80.0 % Lymphocytes (%) (Auto) 14.8 10.0-50.0 % Monocytes (%) (Auto) 10.3 0.0-12.0 % Eosinophils (%) (Auto) 1.3 0.0-7.0 % Basophils (%) (Auto) 0.7 0.0-2.0 % Neutrophils # (Auto) 5.7 1.6-8.6 10 ^3/uL Lymphocytes # (Auto) 1.2 0.4-5.4 10 ^3/uL Monocytes # (Auto) 0.8 0-1.3 10 ^3/uL Eosinophils # (Auto) 0.1 0-0.8 10 ^3/uL Basophils # (Auto) 0.1 0-0.2 10 ^3/uL Nucleated Red Blood Cells 0.2 % Sodium Level 134 L 136-145 mmol/L Potassium Level 4.5 3.5-5.1 mmol/L Chloride Level 98 98-107 mmol/L Carbon Dioxide Level 30 20-31 mmol/L Anion Gap 6 5-15 Blood Urea Nitrogen 20 9-23 mg/dL Creatinine 0.90 0.700-1.30 mg/dL Glomerular Filtration Rate Calc 92 >90 mL/min BUN/Creatinine Ratio 22.2 H 10.0-20.0 Serum Glucose 255 H 74-106 mg/dL Calcium Level 9.1 8.7-10.4 mg/dL Magnesium Level 1.8 1.6-2.6 mg/dL Total Bilirubin 0.4 0.2-1.0 mg/dL Aspartate Amino Transferase (AST) 24 13-40 U/L Alanine Aminotransferase (ALT) 44 H 7-40 U/L Alkaline Phosphatase 87 46-116 U/L Troponin I High Sensitivity 5 </=54 ng/L B-Type Natriuretic Peptide Pending Total Protein 7.2 5.7-8.2 g/dL Albumin 4.2 3.2-4.8 g/dL Time of 1ST Reevaluation: 16:51 Reevaluation 1ST: Unchanged Patient Education/Counseling: Diagnosis, Treatment, Prognosis, Need For Follow Up Family Education/Counseling: No Family Present Comments Patient came to the hospital due to shortness of breaths and bilateral lower limb swelling. Chest x-ray performed, showed bilateral lower zone infiltration. Bilateral lower limb showed grade 4 pitting edema Patient is was vitally stable Patient was given IV Lasix. CBC and CMP checked, grossly within normal limits. Patient will be admitted to the hospital for further management and severe pedal edema and patient's shortness of breath SEPSIS Sepsis Screen Date sepsis recognized/suspect: Jan 19, 2025 Time Sepsis recognized/suspect: 1403 Recent Procedure: No On Antibiotic Therapy: No Respiratory Rate >20: No Heart Rate >90: No Temp<36 C (96.8 F) or >38.3 C: No SBP <90 or MAP <65 mmHG: No New Acute Mental Status Change: No Is the patient on CPAP, BIPAP,: No Physician Orders Drug Screen (01/19/25 14:59) Chest Xray 1 View (01/19/25 14:59) Electrocardigram (01/19/25 14:59) B-Type Natriuretic Peptide (01/19/25 15:29) Vital Signs Date Time Temp Pulse Resp B/P (MAP) Pulse Ox O2 Delivery O2 Flow Rate FiO2 01/19/25 14:03 98.0 86 20 133/73 94 98.0 Laboratory Tests Test 01/19/25 15:33 White Blood Count 7.9 10^3/uL (4.4-10.8) Departure 1 Departure Time of Disposition: 16:52 Impression: Primary Impression: Acute exacerbation of chronic heart failure Additional Impression: Volume overload Disposition: ADMITTED INPATIENT Admit to: Med Surg Condition: Guarded Critical Care Note Critical Care Time?: No Stability Stability form required: No Heart Score Heart Score: Heart Score Response (Comments) Value History Slightly Suspicious 0 EKG N/A 0 Age >65 2 Risk Factors >3 or Hx ASHD 2 Troponin Normal limit 0 Total 4 NISHI NUNES RESANAI Jan 19, 2025 14:59
[2025-01-19] MEDS ORDERED: FUROSEMIDE 100 MG/10ML VIAL IV ONE (15:00)
[2025-01-19 16:07] LABS: Hematocrit 37.0 % (41.0-53.0); Hemoglobin 12.6 g/dL (13.5-17.5); Mean Corpuscular Hemoglobin 30.4 pg (28.0-32.0); Mean Corpuscular Volume 89.6 fL (80.0-100.0); Nucleated Red Blood Cells % 0.2 %
[2025-01-19 16:12] LABS: Alanine Aminotransferase 44 U/L (7-40); Albumin 4.2 g/dL (3.2-4.8); Alkaline Phosphatase 87 U/L (46-116); Anion Gap 6 (5-15); BUN/Creatinine Ratio 22.2 (10.0-20.0); Bilirubin, Total 0.4 mg/dL (0.2-1.0); Blood Urea Nitrogen 20 mg/dL (9-23); Calcium 9.1 mg/dL (8.7-10.4); Carbon Dioxide 30 mmol/L (20-31); Chloride 98 mmol/L (98-107); Glucose 255 mg/dL (74-106); Magnesium 1.8 mg/dL (1.6-2.6); Potassium 4.5 mmol/L (3.5-5.1); Sodium 134 mmol/L (136-145); Total Protein 7.2 g/dL (5.7-8.2)
--- NOTE | 2025-01-19 16:45 | DVH ---
EXAM: XY CHEST XRAY 1 VIEW HISTORY: cough COMPARISON: XY CHEST PORTABLE on DOS: 01/19/25, XY CHEST PORTABLE on DOS: 01/18/25, XY CHEST XRAY 1 VIEW on DOS: 01/15/25, XY CHEST PORTABLE on DOS: 12/13/23, XY CHEST PORTABLE on DOS: 12/01/22 TECHNIQUE: Portable AP view of the chest was performed. FINDINGS: There is diffuse interstitial prominence, slightly greater on the right. No pneumothorax or consolida tive infiltrates. The heart is enlarged. IMPRESSION: Cardiomegaly and interstitial pulmonary edema consistent with CHF.
== END 2025-01-19 17:47 | disposition left against medical advice (07) ==
LOC: ER 14:00
DX: I11.0 Hypertensive heart disease with heart failure (principal); I50.32 Chronic diastolic (congestive) heart failure; E87.70 Fluid overload, unspecified; E11.9 Type 2 diabetes mellitus without complications; E78.5 Hyperlipidemia, unspecified; Z79.899 Other long term (current) drug therapy; Z90.89 Acquired absence of other organs
CPT/HCPCS: 36415; 71045; 80053; 83735; 83880; 84484; 85025